=== PATIENT | male | born 1985 | race Caucasian/White ===

== ENCOUNTER 2016-10-09 12:57 | Inpatient (IN) | payer MEDICAID ==
[2016-10-09] MEDS ORDERED: ONDANSETRON 4 MG/2 ML VIAL ONE (13:27)
--- NOTE | 2016-10-09 13:47 | EDPHY ---
H & P Stated Complaint: probable dka/n/v/d not checking glucoses/cocaine use Time Seen by Provider: 10/09/16 13:40 HPI/ROS: CHIEF COMPLAINT: N/V/D. HISTORY OF PRESENT ILLNESS: The patient is a 31-year-old male with a history of diabetes presenting with 2 days of nausea, vomiting, and diarrhea. Patient developed vomiting and diarrhea 2-3 days ago. Last episode of vomiting was 12 hours ago. Patient states he used cocaine 3 days ago. He has not been taking short acting insulin as he was not eating. Mother reports whenever he gets sick he develops DKA. He admits pain "all over" his body. No fever, chills, chest pain, cough, palpitations, urinary complaints, headache, lightheadedness. Others in the family have been sick with a stomach flu. Reports his glucose has been running 200s. REVIEW OF SYSTEMS: Aside from elements discussed in the HPI, a comprehensive 10-point review of systems was reviewed and is negative. PAST MEDICAL HISTORY: Diabetes, hypertension, brain surgery, pancreatitis. SOCIAL HISTORY: Illicit drug use. VITAL SIGNS: Reviewed by me GENERAL: Ill-appearing. Tachypneic. Reporting feeling very dehydrated and very thirsty. HEENT: Atraumatic. Eyes: No icterus, no injection. Mouth: dry mucous membranes. Mild ketone breath. No erythema or lesions. Neck: supple with no adenopathy. LUNGS: Tachypneic. Clear to auscultation bilaterally, no wheezes, rhonchi or rales. CARDIAC: Tachycardic. Regular rhythm, no rubs, murmurs or gallops. ABDOMEN: Soft, mild epigastric discomfort to palpation. Nondistended, bowel sounds normal. BACK: No CVA tenderness. EXTREMITIES: No trauma. No edema. Range of motion is normal throughout. NEURO: Alert and oriented, grossly nonfocal. SKIN: Warm and dry, no rash. PSYCHIATRIC: Normal mentation, no agitation. Portions of this note were transcribed by a senior medical transcriptionist. I personally performed a history, physical exam, medical decision making, and confirmed accuracy of information the transcribed note. Source: Patient Exam Limitations: No limitations - Personal History Current Tetanus/Diphtheria Vaccine: Yes Tetanus Vaccine Date: 2014 - Medical/Surgical History Hx Asthma: No Hx Chronic Respiratory Disease: No Hx Diabetes: Yes Hx Cardiac Disease: No Hx Renal Disease: No Hx Cirrhosis: No Hx Alcoholism: No Hx HIV/AIDS: No Hx Splenectomy or Spleen Trauma: No Other PMH: TYPE 1 DIABETES, cranial sx, HTN, STREET DRUGS - Social History Smoking Status: Current every day smoker Constitutional: Initial Vital Signs Temperature (C) 36.9 C 10/09/16 13:17 Heart Rate 128 H 10/09/16 13:17 Respiratory Rate 34 H 10/09/16 13:17 Blood Pressure 163/99 H 10/09/16 13:17 O2 Sat (%) 99 10/09/16 13:17 O2 Delivery Mode Room Air Allergies/Adverse Reactions: hydrocodone bitartrate [From Vicodin] Allergy (Verified 10/09/16 13:17) Penicillins Allergy (Verified 10/09/16 13:17) Home Medications: Medication Instructions Recorded Insulin Glargine [Lantus] 25 unit SQ BID 08/30/11 Amitriptyline HCl [Elavil] 25 mg PO HS PRN 10/20/15 busPIRone [Buspar (*)] 10 mg PO BID PRN 10/20/15 Atorvastatin Calcium [Lipitor 20 20 mg PO DAILY 01/28/16 mg (*)] Lisinopril [Zestril 10 mg (*)] 10 mg PO DAILY 01/28/16 Insulin Aspart [Novolog Flexpen] 2 - 10 unit SQ TID #1 ml 05/14/16 Calcium Carbonate [Tums 500MG (*)] 500 mg PO PRN PRN 07/02/16 Ranitidine HCl [Zantac] 150 mg PO DAILY PRN 07/02/16 Medical Decision Making ED Course/Re-evaluation: An IV was established and labs ordered. 2L IV saline administered for hydration. ISTAT glucose 624, Na 128, K 5.1, anion gap 29. CBC shows WBC elevated at 21. CO2 6. IV Insulin drip ordered. 31-year-old male presents in DKA. Patient has glucose of 631, bicarbonate of 6 , [place] [address]. Patient was placed on insulin drip after receiving 10 units. Course discussed with the hospitalist service. Patient will be admitted to the intensive care unit. Differential Diagnosis: Differential diagnoses for the patient's symptom complex was considered including but not limited to DKA, AKA, dehydration secondary to gastroenteritis , pancreatitis, medication noncompliance, illicit drug use. Critical Care Time: Critical care time spent by Dr. Sumit daily exclusively with this patient was 40 minutes, exclusive of PA time and exclusive of procedures. The organ system at risk was cardiovascular and metabolic and I gave IVF, and insulin to prevent worsening of the patients condition. - Data Points Laboratory Results: Laboratory Results 10/09/16 13:55 10/09/16 13:55 10/09/16 10/09/16 10/09/16 13:55 13:55 13:53 WBC 21.05 10^3/uL H 10^3/uL (3.80-9.50) RBC 5.12 10^6/uL 10^6/uL (4.40-6.38) Hgb 14.4 g/dL g/dL (13.7-17.5) POC Hgb 15.6 gm/dL gm/dL (14.5-17.3) Hct 43.2 % % (40.0-51.0) POC Hct 46 % % (42.8-50.6) MCV 84.4 fL fL (81.5-99.8) MCH 28.1 pg pg (27.9-34.1) MCHC 33.3 g/dL g/dL (32.4-36.7) RDW 13.3 % % (11.5-15.2) Plt Count 521 10^3/uL H 10^3/uL (150-400) MPV 10.9 fL fL (8.7-11.7) Neut % (Auto) Not Reported Lymph % (Auto) Not Reported [place] % (Auto) Not Reported Eos % (Auto) Not Reported Baso % (Auto) Not Reported Nucleat RBC Rel Count 0.0 % % (0.0-0.2) Absolute Neuts (auto) Not Reported Absolute Lymphs (auto) Not Reported Absolute Monos (auto) Not Reported Absolute Eos (auto) Not Reported Absolute Basos (auto) Not Reported Absolute Nucleated RBC 0.00 10^3/uL 10^3/uL (0-0.01) Immature Gran % Not Reported Seg Neutrophils % 75 % % Band Neutrophils % 3 % % Lymphocytes % 17 % % Monocytes % 2 % % Metamyelocytes % 2 % % Myelocytes % 1 % % Immature Gran # Not Reported Absolute Seg Neuts 15.79 10^/uL H 10^/uL (1.70-6.50) Absolute Band Neuts 0.63 10^3/uL 10^3/uL (0.00-0.70) Absolute Lymphocytes 3.58 10^3/uL H 10^3/uL (1.00-3.00) Absolute Monocytes 0.42 10^3/uL 10^3/uL (0.30-0.80) Absolute Metamyelocyte 0.42 10^3/mL H 10^3/mL (0.00-0.00) Absolute Myelocytes 0.21 10^3/mL H 10^3/mL (0.00-0.00) Platelet Estimate INCREASED H (ADEQ) Polychromasia 1+ H Smear Review By Pending POC Sodium 128 mEq/L L mEq/L (134-144) Sodium 130 mEq/L L mEq/L (134-144) POC Potassium 5.1 mEq/L H mEq/L (3.3-5.0) Potassium 5.8 mEq/L H mEq/L (3.5-5.2) POC Chloride 99 mEq/L mEq/L (96-108) Chloride 94 mEq/L L mEq/L (97-110) Carbon Dioxide 6 mEq/l L* mEq/l (22-31) Anion Gap 30 mEq/L H mEq/L (8-16) POC BUN 27 mg/dL H mg/dL (7-23) BUN 25 mg/dL H mg/dL (7-23) Creatinine 1.4 mg/dL H mg/dL (0.7-1.3) POC Creatinine 1.1 mg/dL mg/dL (0.8-1.5) Estimated GFR 60 Glucose 631 mg/dL H* mg/dL (70-100) POC Glucose 624 mg/dL H* mg/dL (70-100) Calcium 11.3 mg/dL H mg/dL (8.5-10.4) Phosphorus 7.0 mg/dL H mg/dL (2.5-4.5) Magnesium 2.3 mg/dL mg/dL (1.6-2.3) Total Bilirubin 1.4 mg/dL mg/dL (0.1-1.4) Conjugated Bilirubin 0.4 mg/dL mg/dL (0.0-0.5) Unconjugated Bilirubin 1.0 mg/dL mg/dL (0.0-1.1) AST 17 IU/L IU/L (17-59) ALT 50 IU/L IU/L (21-72) Alkaline Phosphatase 112 IU/L IU/L (38-126) Total Protein 6.7 g/dL g/dL (6.3-8.2) Albumin 4.3 g/dL g/dL (3.5-5.0) Lipase 54.0 IU/L IU/L (23-300) Beta-Hydroxybutyrate Pending Medications Given: Discontinued Medications Hydromorphone HCl (Dilaudid) 1 mg IVP EDNOW ONE Stop: 10/09/16 14:55 Last Admin: 10/09/16 14:55 Dose: 1 mg Sodium Chloride (Ns) 1,000 mls @ 0 mls/hr IV ONCE ONE PRN Reason: Wide Open Stop: 10/09/16 13:56 Last Admin: 10/09/16 14:29 Dose: 1,000 mls Sodium Chloride (Ns) 1,000 mls @ 0 mls/hr IV ONCE ONE PRN Reason: Wide Open Stop: 10/09/16 13:56 Last Admin: 10/09/16 14:52 Dose: 1,000 mls Insulin Human Regular (Humulin R) 10 unit IVP EDNOW ONE Stop: 10/09/16 14:13 Last Admin: 10/09/16 14:52 Dose: 10 units Ondansetron HCl (Zofran) 4 mg IVP EDNOW ONE Stop: 10/09/16 14:55 Last Admin: 10/09/16 14:55 Dose: 4 mg Point of Care Test Results: 10/09/16 13:53 POC Sodium 128 L POC Potassium 5.1 H POC Chloride 99 POC BUN 27 H POC Creatinine 1.1 POC Glucose 624 H* Departure - Departure Disposition: [facility] Inpatient Acute Clinical Impression: Dehydration DKA (diabetic ketoacidoses) Qualifiers: Diabetes mellitus type: type 1 Diabetes mellitus complication detail: without coma Qualified Code(s): E10.10 - Type 1 diabetes mellitus with ketoacidosis without coma Vomiting Qualifiers: Vomiting type: unspecified Vomiting Intractability: unspecified Nausea presence : with nausea Qualified Code(s): R11.2 - Nausea with vomiting, unspecified Condition: Serious Referrals: MARTHA FENTON [Other] - As per Instructions Report Scribed for: Margarita Arana Report Scribed by: Osbaldo Tripp Date of Report: 10/09/16 Time of Report: 13:46
[2016-10-09] MEDS ORDERED: NS 1,000 ML IV ONE ×2 (13:55)
[2016-10-09] MEDS ORDERED: HYDROmorphONE/DILAUDID 1 MG/ML SYR ONE (14:01)
[2016-10-09 14:07] LABS: ADD DIFF? YES; ADD MORPH? NO; ADD SCAN? NO; ATYPICAL LYMPHOCYTE FLAG 0 (0-99); FRAGMENT RBC FLAG 0 (0-99); HEMATOCRIT 43.2 % (40.0-51.0); HEMOGLOBIN 14.4 g/dL (13.7-17.5); LEFT SHIFT FLG 20 (0-99); LIPEMIA HEMOLYSIS FLAG 80 (0-99); MEAN CELL HEMOGLOBIN 28.1 pg (27.9-34.1); MEAN CELL HEMOGLOBIN CONCENTR. 33.3 g/dL (32.4-36.7); MEAN CELL VOLUME 84.4 fL (81.5-99.8); MEAN PLATELET VOLUME 10.9 fL (8.7-11.7); PLATELET CLUMPS FLAG 20 (0-99); PLATELET COUNT 521 10^3/uL (150-400); RED BLOOD CELL COUNT 5.12 10^6/uL (4.40-6.38); RED CELL DISTRIBUTION WIDTH 13.3 % (11.5-15.2)
[2016-10-09] MEDS ORDERED: INSULIN REGULAR HUMAN 100 UNIT/ML IVP ONE ×2 (14:12→17:00)
[2016-10-09] MEDS ORDERED: INSULIN REGULAR HUMAN 100 UNIT, COSIGN. REQUIRED 1 EA in NS 100 ML IV ONE (14:12)
[2016-10-09 14:26] LABS: ALANINE AMINOTRANSFERASE 50 IU/L (21-72); ALBUMIN 4.3 g/dL (3.5-5.0); ALKALINE PHOSPHATASE 112 IU/L (38-126); ANION GAP 30 mEq/L (8-16); ASPARTATE AMINOTRANSFERASE 17 IU/L (17-59); BILIRUBIN,TOTAL 1.4 mg/dL (0.1-1.4); BILIRUBIN-CONJUGATED 0.4 mg/dL (0.0-0.5); CALCIUM 11.3 mg/dL (8.5-10.4); CHLORIDE 94 mEq/L (97-110); CREATININE 1.4 mg/dL (0.7-1.3); GLOMERULAR FILTRATION RATE 60; MAGNESIUM 2.3 mg/dL (1.6-2.3); POTASSIUM 5.8 mEq/L (3.5-5.2); SODIUM 130 mEq/L (134-144); TOTAL PROTEIN 6.7 g/dL (6.3-8.2)
[2016-10-09 14:37] LABS: CARBON DIOXIDE 6 mEq/l (22-31); GLUCOSE 631 mg/dL (70-100)
[2016-10-09 14:40] LABS: PLATELET ESTIMATE INCREASED (ADEQ); POLYCHROMASIA 1+
[2016-10-09] MEDS ORDERED: HYDROmorphONE/DILAUDID 1 MG/ML SYR IVP ONE ×3 (14:54→22:56)
[2016-10-09] MEDS ORDERED: ONDANSETRON 4 MG/2 ML VIAL IVP ONE (14:54)
[2016-10-09] MEDS ORDERED: ONDANSETRON DISINTEGRATING 4 MG TAB PO PRN (16:25)
[2016-10-09] MEDS ORDERED: ACETAMINOPHEN 325 MG TAB PO PRN (16:25)
[2016-10-09] MEDS ORDERED: busPIRone 10 MG TAB PO PRN (16:26)
[2016-10-09] MEDS ORDERED: AMITRIPTYLINE HCL 25 MG TAB PO PRN (16:26)
[2016-10-09] MEDS ORDERED: NON-FORMULARY NEW DRUG (Ranitidine Hcl [Zantac] 150 MG) PO PRN (16:26)
[2016-10-09] MEDS ORDERED: FAMOTIDINE 20 MG TAB PO PRN (16:34)
--- NOTE | 2016-10-09 16:43 | GHP ---
DATE OF ADMISSION: 10/09/2016 CHIEF COMPLAINT: DKA. HISTORY OF PRESENT ILLNESS: This is a 31-year-old male, who has had multiple admissions over the year for DKA. He states that multiple family members are sick with gastroenteritis. He says he has had several days of nausea, vomiting, and diarrhea. He has been unable to take his insulin. He denies any fevers or chills. Does admit to abdominal pain. He has been taking his Lantus. REVIEW OF SYSTEMS: Ten-point review of systems was obtained and unless stated is negative. PAST MEDICAL HISTORY: 1. DKA with type 1 diabetes. 2. History of polysubstance abuse. 3. History of testicle removal. MEDICATIONS: Lantus 30 units t.i.d., plus sliding scale, amitriptyline, BuSpar. SOCIAL HISTORY: Does smoke marijuana, tobacco. FAMILY HISTORY: Maternal grandfather with heart disease. PHYSICAL EXAM: VITAL SIGNS: Afebrile, heart rate 118, blood pressure 130/86, oxygen saturation 100 % on room air. GENERAL: Patient is well developed, in no apparent distress. HEENT: Nonicteric sc lerae. 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 Dry mucous membranes. NECK: Supple. No thyromegaly. LUNGS effort. Clear to auscultation bila terally. CARDIOVASCULAR: Regular rate, tachycardic. No murmurs or gallops. ABDOMEN: Soft, diffu se mild tenderness. No rebound or guarding. EXTREMITIES: No clubbing, cyanosis, or edema. SKIN: Without rash and intact. NEURO: Intact. NEUROLOGIC: Alert and oriented x3, moving all 4 extremi ties equally. PSYCH: Normal mood and affect. LABS: White blood cell count is elevated at 21, hemoglobin 14, platelets of 521. Sodium of 130, po tassium 5.8, CO2 of 6, BUN of 30, creatinine 1.4, glucose 631. Beta hydroxybutyrate is positive. ASSESSMENT: This is a 31-year-old male, presenting with diabetic ketoacidosis. PLAN: 1. DKA. Patient will be placed on a protocol. 2. Diarrhea. Will check a stool GI profile. 3. Leukocytosis, probably related to DKA. Continue to monitor. 4. Multiple electrolyte abnormalities consistent with DKA. /[id number]/MODL
[2016-10-09] MEDS ORDERED: INSULIN REGULAR HUMAN 100 UNIT in NS 100 ML IV SCH (16:55)
[2016-10-09] MEDS ORDERED: D50W 25 GM/50 ML SYR IVP PRN (16:55)
[2016-10-09] MEDS ORDERED: NS 4,000 ML IV ONE (16:55)
[2016-10-09] MEDS ORDERED: INSULIN REGULAR HUMAN 100 UNIT/ML IVP PRN (16:55)
[2016-10-09 17:18] LABS: BASE EXCESS -21.6 mEq/L (-2.5-2.5); BICARBONATE 5 mEq/L (22-26); MEASURED OXYGEN SATURATION 97 % (92-95)
[2016-10-09 17:20] LABS: PO2 106 mmHg (65-75)
[2016-10-09 17:22] LABS: PCO2 11 mmHg (34-38)
[2016-10-09 17:23] LABS: O2 CONCENTRATIION ROOM AIR % (0-100); P/F RATIO 0 RATIO; TCO2 5 mEq/L (23-27)
[2016-10-09 21:48] LABS: ALANINE AMINOTRANSFERASE 38 IU/L (21-72); ALBUMIN 2.7 g/dL (3.5-5.0); ALKALINE PHOSPHATASE 60 IU/L (38-126); ANION GAP 8 mEq/L (8-16); ASPARTATE AMINOTRANSFERASE 11 IU/L (17-59); BILIRUBIN,TOTAL 0.9 mg/dL (0.1-1.4); CALCIUM 9.3 mg/dL (8.5-10.4); CARBON DIOXIDE 17 mEq/l (22-31); CHLORIDE 106 mEq/L (97-110); CHOLESTEROL 171 mg/dL (140-200); CHOLESTEROL/HDL RATIO 2.51 RATIO (1.00-4.97); CREATININE 0.9 mg/dL (0.7-1.3); GLOMERULAR FILTRATION RATE > 60; GLUCOSE 175 mg/dL (70-100); HIGH DENSITY LIPOPROTEIN 68 mg/dL (40-65); LDL/HDL RATIO 1.37 RATIO (1.00-3.64); LOW DENSITY LIPOPROTEIN 93 mg/dL (70-100); MAGNESIUM 1.8 mg/dL (1.6-2.3); NON-HIGH DENSITY LIPOPROTEIN 103 mg/dL (90-129); POTASSIUM 4.6 mEq/L (3.5-5.2); SODIUM 131 mEq/L (134-144); TRIGLYCERIDE 50 mg/dL (40-150); VERY LOW DENSITY LIPOPROTEINS 10 mg/dL (8-25)
[2016-10-09] MEDS ORDERED: D5W NS 1,000 ML IV SCH (22:00)
[2016-10-09 23:33] LABS: COLOR YELLOW; LEUKOCYTE ESTERASE,URINE NEGATIVE (NEGATIVE); NITRITE,URINE NEGATIVE (NEGATIVE)
[2016-10-10 01:47] LABS: ALANINE AMINOTRANSFERASE 37 IU/L (21-72); ALBUMIN 2.6 g/dL (3.5-5.0); ALKALINE PHOSPHATASE 59 IU/L (38-126); ANION GAP 4 mEq/L (8-16); ASPARTATE AMINOTRANSFERASE 13 IU/L (17-59); BILIRUBIN,TOTAL 0.8 mg/dL (0.1-1.4); CALCIUM 9.7 mg/dL (8.5-10.4); CARBON DIOXIDE 21 mEq/l (22-31); CHLORIDE 108 mEq/L (97-110); CREATININE 0.8 mg/dL (0.7-1.3); GLOMERULAR FILTRATION RATE > 60; GLUCOSE 71 mg/dL (70-100); MAGNESIUM 1.9 mg/dL (1.6-2.3); SODIUM 133 mEq/L (134-144)
[2016-10-10] MEDS: HYDROmorphONE/DILAUDID 1 MG/ML SYR IVP PRN ×5 (03:12→11:52)
[2016-10-10] MEDS: ONDANSETRON 4 MG/2 ML VIAL IVP PRN ×2 (03:12→07:16)
[2016-10-10 03:23] LABS: HEMOGLOBIN A1C 14.3 % (4.0-6.0)
[2016-10-10 05:17] LABS: % IMMATURE GRANULYOCYTES 0.8 % (0.0-1.1); ABSOLUTE IMMATURE GRANULOCYTES 0.18 10^3/uL (0.00-0.10); ADD DIFF? NO; ADD MORPH? NO; ADD SCAN? NO; ATYPICAL LYMPHOCYTE FLAG 0 (0-99); FRAGMENT RBC FLAG 0 (0-99); HEMATOCRIT 30.5 % (40.0-51.0); HEMOGLOBIN 10.5 g/dL (13.7-17.5); LEFT SHIFT FLG 0 (0-99); LIPEMIA HEMOLYSIS FLAG 90 (0-99); MEAN CELL HEMOGLOBIN 28.2 pg (27.9-34.1); MEAN CELL HEMOGLOBIN CONCENTR. 34.4 g/dL (32.4-36.7); MEAN CELL VOLUME 81.8 fL (81.5-99.8); MEAN PLATELET VOLUME 9.9 fL (8.7-11.7); PLATELET CLUMPS FLAG 0 (0-99); PLATELET COUNT 299 10^3/uL (150-400); RED BLOOD CELL COUNT 3.73 10^6/uL (4.40-6.38); RED CELL DISTRIBUTION WIDTH 13.5 % (11.5-15.2)
[2016-10-10 05:31] LABS: ALANINE AMINOTRANSFERASE 38 IU/L (21-72); ALBUMIN 2.6 g/dL (3.5-5.0); ALKALINE PHOSPHATASE 54 IU/L (38-126); ANION GAP 4 mEq/L (8-16); ASPARTATE AMINOTRANSFERASE 16 IU/L (17-59); BILIRUBIN,TOTAL 0.8 mg/dL (0.1-1.4); CALCIUM 9.2 mg/dL (8.5-10.4); CARBON DIOXIDE 22 mEq/l (22-31); CHLORIDE 109 mEq/L (97-110); CREATININE 0.7 mg/dL (0.7-1.3); GLOMERULAR FILTRATION RATE > 60; GLUCOSE 56 mg/dL (70-100); POTASSIUM 3.8 mEq/L (3.5-5.2); SODIUM 135 mEq/L (134-144); TOTAL PROTEIN 5.1 g/dL (6.3-8.2)
[2016-10-10] MEDS: INSULIN LISPRO 100 UNIT/ML SC SCH ×2 (07:40→11:52)
[2016-10-10] MEDS ORDERED: INSULIN GLARGINE 100 UNITS/ML SYRINGE SC SCH (09:00)
[2016-10-10] MEDS ORDERED: PROMETHAZINE HCL 25 MG/ML INJ IVP PRN (10:08)
[2016-10-10] MEDS ORDERED: PROMETHAZINE HCL 25 MG TAB PO PRN (10:29)
[2016-10-10 11:57] VITALS: PULSE 97; TEMP 98; O2SAT 99
[2016-10-10] MEDS ORDERED: SUMAtriptan 6 MG/0.5 ML VIAL SC ONE (12:26)
[2016-10-10 14:45] VITALS: BP 162/102; RESP 14
--- NOTE | 2016-10-10 19:52 | GDS ---
DISCHARGE DIAGNOSES: 1. Diabetic ketoacidosis. 2. Viral gastroenteritis. 3. Migraine headache. 4. History of polysubstance abuse. HISTORY: This is a 31-year-old male, who was sick with gastroenteritis for the 2 days prior to admi ssion. He presented in DKA. HOSPITAL COURSE: Patient was placed on the protocol. His gap closed the following day, and his aci dosis resolved. He did have a migraine with continued vomiting. We did give him Imitrex and he imp roved significantly. He will be discharged home with a prescription for Imitrex as needed. He will resume his previous insulin doses. /[id number]/MODL
== END 2016-10-10 15:37 | disposition home or self-care (01) | DRG 639 ==
LOC: F2N 15:54 → OBSVTOIN 16:25
PROVIDERS: ADMIT Internal Medicine; ATTEND Internal Medicine
PROC: 02HV33Z Insertion of Infusion Device into Superior Vena Cava, Percutaneous Approach (ICD-10-PCS; principal; 2016-10-09)
DX: E10.10 Type 1 diabetes mellitus with ketoacidosis without coma (principal); Z91.14 Patient's other noncompliance with medication regimen; A08.4 Viral intestinal infection, unspecified; G43.909 Migraine, unspecified, not intractable, without status migrainosus; E86.0 Dehydration; F14.10 Cocaine abuse, uncomplicated; F12.10 Cannabis abuse, uncomplicated; F17.210 Nicotine dependence, cigarettes, uncomplicated; I10 Essential (primary) hypertension; Z79.4 Long term (current) use of insulin; Z90.79 Acquired absence of other genital organ(s); Z88.0 Allergy status to penicillin
CPT/HCPCS: 82947-QW; 96365; C1751; J1170; J1815; J2405; J3030

== ENCOUNTER 2017-01-30 15:18 | Emergency (ER) | payer MEDICAID ==
[2017-01-30] MEDS ORDERED: NS 1,000 ML IV ONE (15:30)
[2017-01-30] MEDS ORDERED: LISINOPRIL 20 MG TAB PO ONE (15:47)
--- NOTE | 2017-01-30 15:48 | CPEKG ---
Heart Rate: 80 RR Interval: 750 P-R Interval: 160 QRSD Interval: 98 QT Interval: 396 QTC Interval: 457 P [place]: 85 QRS [place]: 77 T Wave [place]: 84 EKG Severity - ABNORMAL ECG - EKG Impression: SINUS RHYTHM EKG Impression: PROBABLE LEFT VENTRICULAR HYPERTROPHY Electronically Signed By: Paz Marsh 30-Jan-2017 20:52:04
--- NOTE | 2017-01-30 15:54 | EDPHY ---
H & P Time Seen by Provider: 01/30/17 15:29 HPI/ROS: CHIEF COMPLAINT: Ear infection HISTORY OF PRESENT ILLNESS: This patient is a 32 year old male with poorly controlled diabetes and hypertension presenting today with vomiting and ear pain. Yesterday, he reports he was admitted to [facility] for DKA and was placed on an insulin drip. He states he became upset this morning and left the hospital against medical advice. He states he has taken insulin 10 units regular subcutaneously today, but has been unable to eat. Onset of vomiting today with associated abdominal pain. The patient states he initially went to [facility] Emergency department for left ear pain. He states these have been present for a few days. REVIEW OF SYSTEMS: Constitutional: No fever, no chills Eyes: No visual changes ENT: Left ear pain. No sore throat Respiratory: No cough, no shortness of breath Cardiac: No chest pain Gastrointestinal: Nausea, vomiting, no abdominal pain Genitourinary: No hematuria, no dysuria Musculoskeletal: No leg pain or swelling Skin: No rash Neurological: No headache, no numbness, no weakness Psychiatric: depression Past Medical/Surgical History: DKA Type I diabetes Polysubstance abuse Testicle removal Past medical records reviewed including admission 10/09/16 for DKA. Social History: Tobacco use Smoking Status: Current every day smoker Physical Exam: General Appearance: Alert, no distress Eyes: Pupils equal and round, no conjunctival pallor or injection ENT, Mouth: Erythema to superior aspect of pinna, no fluctuance. Mucous membranes moist Neck: Normal inspection Respiratory: Lungs are clear to auscultation Cardiovascular: Regular rate and rhythm Gastrointestinal: Mild epigastric tenderness Neurological: A&O, nonfocal, normal gait Skin: Warm and dry, no rash Extremities: Nontender, no pedal edema Psychiatric: Angry affect Constitutional: Initial Vital Signs Temperature (C) 36.6 C 01/30/17 15:21 Heart Rate 92 01/30/17 15:21 Respiratory Rate 18 01/30/17 15:21 Blood Pressure 182/126 H 01/30/17 15:21 O2 Sat (%) 99 01/30/17 15:21 O2 Delivery Mode Room Air Allergies/Adverse Reactions: hydrocodone bitartrate [From Vicodin] Allergy (Verified 10/09/16 13:17) Penicillins Allergy (Verified 10/09/16 13:17) Home Medications: Medication Instructions Recorded Insulin Glargine [Lantus] 30 unit SQ TID 08/30/11 Amitriptyline HCl [Elavil] 25 mg PO HS PRN 10/20/15 busPIRone [Buspar (*)] 10 mg PO BID PRN 10/20/15 Insulin Aspart [Novolog Flexpen] 2 - 10 unit SQ TID #1 ml 05/14/16 Ranitidine HCl [Zantac] 150 mg PO DAILY PRN 07/02/16 SUMAtriptan [Imitrex 25 MG (*)] 50 mg PO Q4 PRN #20 tab 10/10/16 Lisinopril 10 mg PO DAILY #30 tablet 01/30/17 Ondansetron Odt [Zofran Odt 4 mg 4 mg PO Q4 PRN #6 tab 01/30/17 (*)] Sulfamethox/Tmp 800/160 mg 1 tab PO BID #14 tab 01/30/17 [Bactrim Ds] Medical Decision Making - Diagnostics EKG Interpretation: EKG interpreted by me reveals normal sinus rhythm, rate 80, no ST/T changes. Probably left ventricular hypertrophy. Interpretation: normal EKG ED Course/Re-evaluation: This patient is a 32 year old male with multiple past visits for DKA and other diabetes related complaints presenting today with nausea and vomiting. The patient is noncompliant with his medications. Review of past medical records show the patient should be taking Lisinopril 10mg daily, Lantus 25 units subcutaneously bid, and regular insulin as needed. The patient is hypertensive. Plan for labs including CBC, BMP, I-Stat. Plan to administer 10mg po Lisinopril and 4mg IV Zofran for symptom management. The patient states he is feeling quite anxious. Plan to administer 1mg IV Ativan for symptom relief. Labs unremarkable. The patient is not currently in DKA. 17:47 Reassessed patient. Discussed results of labs. Patient is not in DKA. Reassessed left ear. Patient requests antibiotics, declines draining the tiny cyst. No further vomiting. The patient is able to tolerate oral fluids well. Plan to discharge home in good condition with prescriptions for Insulin and Lisinopril for management of his diabetes and hypertension, as well as Bactrim to treat the cellulitis of his left pinna and Zofran to control his nausea. The patient is comfortable with this plan. Differential Diagnosis: The differential diagnosis for the patient's nausea and vomiting included but was not limited to gastroenteritis, gastritis, and medication side effect. - Data Points Laboratory Results: Laboratory Results 01/30/17 15:55 01/30/17 15:55 Medications Given: Discontinued Medications Acetaminophen (Tylenol) 1,000 mg PO EDNOW ONE Stop: 01/30/17 16:35 Last Admin: 01/30/17 16:34 Dose: 1,000 mg Sodium Chloride (Ns) 1,000 mls @ 0 mls/hr IV ONCE ONE; Wide Open PRN Reason: Protocol Stop: 01/30/17 15:31 Last Admin: 01/30/17 15:55 Dose: 1,000 mls Lisinopril (Zestril) 10 mg PO EDNOW ONE Stop: 01/30/17 15:48 Last Admin: 01/30/17 16:00 Dose: 10 mg Lorazepam (Ativan Injection) 1 mg IVP EDNOW ONE Stop: 01/30/17 16:59 Last Admin: 01/30/17 17:00 Dose: 1 mg Ondansetron HCl (Zofran) 4 mg IVP EDNOW ONE Stop: 01/30/17 16:06 Last Admin: 01/30/17 16:05 Dose: 4 mg Departure - Departure Disposition: Home, Routine, Self-Care Clinical Impression: Cellulitis Qualifiers: Site of cellulitis: head Qualified Code(s): L03.811 - Cellulitis of head [any part, except face] Vomiting Qualifiers: Vomiting Intractability: non-intractable Nausea presence: with nausea Diabetes Qualifiers: Diabetes mellitus type: type 1 Diabetes mellitus complication status: without complication Qualified Code(s): E10.9 - Type 1 diabetes mellitus without complications Condition: Good Instructions: Cellulitis (ED), Type 1 Diabetes in Adults (ED), Acute Nausea and Vomiting (ED) Additional Instructions: 1. Take your insulin as prescribed to manage your blood sugar levels. 2. Take your Lisinopril as prescribed to control your high blood pressure. 3. We have prescribed you Bactrim to treat the infection in your ear. Please take this medication as prescribed. It is important that you finish your entire course of antibiotics. 4. We have prescribed you Zofran. Please take this medication as prescribed as needed for nausea. 5. Follow up with your primary care physician for continued management of your medication regimen. Referrals: MD FROY [Other] - As per Instructions Prescriptions: Lisinopril 10 mg PO DAILY #30 tablet Ondansetron Odt [Zofran Odt 4 mg (*)] 4 mg PO Q4 PRN #6 tab PRN Reason: Nausea Sulfamethox/Tmp 800/160 mg [Bactrim Ds] 1 tab PO BID #14 tab Report Scribed for: Paz Marsh Report Scribed by: Yadira Garland Date of Report: 01/30/17 Time of Report: 15:36 Physician Review and Approval Statement: 01/30/17 15:36 Portions of this note were transcribed by a diagnostic medical sonographer. I personally performed a history, physical exam, medical decision making, and confirmed accuracy of information the transcribed note.
[2017-01-30 16:02] LABS: % IMMATURE GRANULYOCYTES 0.7 % (0.0-1.1); ABSOLUTE IMMATURE GRANULOCYTES 0.06 10^3/uL (0.00-0.10); ADD DIFF? NO; ADD MORPH? NO; ADD SCAN? NO; ATYPICAL LYMPHOCYTE FLAG 20 (0-99); FRAGMENT RBC FLAG 0 (0-99); HEMATOCRIT 33.9 % (40.0-51.0); HEMOGLOBIN 11.5 g/dL (13.7-17.5); LEFT SHIFT FLG 0 (0-99); LIPEMIA HEMOLYSIS FLAG 90 (0-99); MEAN CELL HEMOGLOBIN CONCENTR. 33.9 g/dL (32.4-36.7); MEAN CELL VOLUME 79.6 fL (81.5-99.8); MEAN PLATELET VOLUME 10.9 fL (8.7-11.7); PLATELET CLUMPS FLAG 10 (0-99); PLATELET COUNT 253 10^3/uL (150-400); RED BLOOD CELL COUNT 4.26 10^6/uL (4.40-6.38); RED CELL DISTRIBUTION WIDTH 13.9 % (11.5-15.2)
[2017-01-30] MEDS ORDERED: ONDANSETRON 4 MG/2 ML VIAL ONE (16:02)
[2017-01-30] MEDS ORDERED: ONDANSETRON 4 MG/2 ML VIAL IVP ONE (16:05)
[2017-01-30] MEDS ORDERED: ACETAMINOPHEN 500 MG TAB ONE (16:29)
[2017-01-30 16:32] LABS: ANION GAP 9 mEq/L (8-16); CALCIUM 9.4 mg/dL (8.5-10.4); CARBON DIOXIDE 20 mEq/l (22-31); CHLORIDE 101 mEq/L (97-110); CREATININE 0.6 mg/dL (0.7-1.3); GLOMERULAR FILTRATION RATE > 60; GLUCOSE 159 mg/dL (70-100); SODIUM 130 mEq/L (134-144)
[2017-01-30] MEDS ORDERED: ACETAMINOPHEN 500 MG TAB PO ONE (16:34)
[2017-01-30] MEDS ORDERED: LORazepam 2 MG/ML INJ ONE (16:52)
[2017-01-30] MEDS ORDERED: LORazepam 2 MG/ML INJ IVP ONE (16:58)
[2017-01-30 17:37] VITALS: RESP 20
[2017-01-30 18:07] VITALS: BP 160/100; PULSE 78; TEMP 97.7; O2SAT 97
== END 2017-01-30 18:07 | disposition home or self-care (01) ==
DX: R11.2 Nausea with vomiting, unspecified (principal); L03.811 Cellulitis of head [any part, except face]; E10.9 Type 1 diabetes mellitus without complications; F17.200 Nicotine dependence, unspecified, uncomplicated; I10 Essential (primary) hypertension; E86.9 Volume depletion, unspecified; Z79.4 Long term (current) use of insulin
CPT/HCPCS: 82947-QW; 96374; J2060; J2405

== ENCOUNTER 2017-06-14 17:51 | Inpatient (IN) | payer MEDICAID ==
[2017-06-14] MEDS ORDERED: NS 1,000 ML IV ONE ×2 (19:00→19:53)
[2017-06-14] MEDS ORDERED: fentaNYL 100 MCG/2 ML INJ IVP ONE (19:00)
[2017-06-14] MEDS ORDERED: ONDANSETRON 4 MG/2 ML VIAL IVP ONE (19:00)
[2017-06-14 19:07] LABS: % IMMATURE GRANULYOCYTES 0.6 % (0.0-1.1); ABSOLUTE IMMATURE GRANULOCYTES 0.04 10^3/uL (0.00-0.10); ADD DIFF? NO; ADD MORPH? NO; ADD SCAN? NO; ATYPICAL LYMPHOCYTE FLAG 20 (0-99); FRAGMENT RBC FLAG 0 (0-99); HEMATOCRIT 31.4 % (40.0-51.0); HEMOGLOBIN 10.4 g/dL (13.7-17.5); LEFT SHIFT FLG 0 (0-99); LIPEMIA HEMOLYSIS FLAG 80 (0-99); MEAN CELL HEMOGLOBIN 26.5 pg (27.9-34.1); MEAN CELL HEMOGLOBIN CONCENTR. 33.1 g/dL (32.4-36.7); MEAN CELL VOLUME 80.1 fL (81.5-99.8); PLATELET CLUMPS FLAG 0 (0-99); PLATELET COUNT 303 10^3/uL (150-400); RED BLOOD CELL COUNT 3.92 10^6/uL (4.40-6.38); RED CELL DISTRIBUTION WIDTH 14.6 % (11.5-15.2)
--- NOTE | 2017-06-14 19:15 | EDPHY ---
H & P Time Seen by Provider: 06/14/17 18:49 HPI/ROS: CHIEF COMPLAINT: Vomiting, abdominal pain, severe left foot pain, peripheral neuropathy HISTORY OF PRESENT ILLNESS: 32-year-old male with a history of insulin- dependent diabetes presents to the emergency department by private vehicle with multiple episodes of vomiting and abdominal pain. Patient states that he has been vomiting intermittently over last 1 week and then developed pain especially in his lower abdomen over last few days. He states 3 days ago he dropped a heavy bottle on his left foot. He has associated pain especially in his left foot with this. He is now noticed some redness. He states that he has numbness to both feet and lower legs. He denies chest pain or difficulty breathing. He feels nauseous. No diarrhea. He states his blood sugars had been running very high the last few days. He states "I can't get the below 400 ". He has been taking his insulin as instructed. REVIEW OF SYSTEMS: Constitutional: No fever, no chills. Eyes: No double or blurry vision. ENT: No sore throat. Respiratory: No cough, no shortness of breath. Cardiac: No chest pain. Gastrointestinal: Abdominal pain, vomiting. No diarrhea. Genitourinary: No dysuria. Musculoskeletal: No neck or back pain. Skin: Redness left foot. Chronic diffuse rash for "years " Neurological: No headache. 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 Heart rate 111, blood pressure 197/137 , temperature 36.9degrees Eyes: Pupils equal and round. Extraocular motions are all intact. ENT: Very dry mouth. Chelitis noted. Respiratory: No wheezing, rhonchi, or rales, lungs are clear to auscultation. Cardiovascular: Regular rate and rhythm. Tachycardic. Gastrointestinal: Abdomen is soft. He has tenderness with palpation especially the right lower quadrant over McBurney's point. There is no rebound , guarding or masses noted. No CVA tenderness bilaterally. Neurological: Alert and oriented x 3, cranial nerves II through XII grossly intact Skin: Abrasion noted to the dorsal aspect of the left foot overlying left great toe. There is surrounding redness and warmth. Tender to palpate. Normal sensation to light touch. Normal capillary refill. He has an abrasion the dorsal aspect of the 2nd toe as well there is also surrounding redness. There is no lymphangitis. Full range of motion of his toes. Musculoskeletal: Nontender to palpate along the cervical, thoracic or lumbar spine. Neck is supple. Extremities: Full range of motion and no peripheral edema. See skin above. Psychiatric: Patient is oriented X 3, there is no agitation. Constitutional: Initial Vital Signs Temperature (C) 36.9 C 06/14/17 17:54 Heart Rate 111 H 06/14/17 17:54 Respiratory Rate 18 06/14/17 17:54 Blood Pressure 197/137 H 06/14/17 17:54 O2 Sat (%) 98 06/14/17 17:54 O2 Delivery Mode Room Air Allergies/Adverse Reactions: hydrocodone bitartrate [From Vicodin] Allergy (Verified 06/14/17 17:53) Home Medications: Medication Instructions Recorded Insulin Glargine [Lantus] 20 unit SQ TID 08/30/11 busPIRone [Buspar (*)] 10 mg PO BID PRN 16 Ranitidine HCl [Zantac] 150 mg PO BID PRN 07/02/16 Acetaminophen [Tylenol ES 500 mg 500 mg PO Q6 PRN 06/14/17 (*)] Calcium Carbonate [Tums 500MG (*)] 1,000 mg PO TID PRN 06/14/17 Insulin Aspart [Novolog Flexpen] 2 - 8 unit SQ TID 06/14/17 Lisinopril [Zestril 40 mg (*)] 40 mg PO DAILY 06/14/17 Medical Decision Making - Diagnostics Imaging Results: Imaging Impressions Foot X-Ray 06/14/17 19:08 Impression: Negative. No acute fracture. Abdomen CT 06/14/17 20:10 Impression: 1. Appendix cannot be identified. No features suggestive of acute appendicitis. 2. Minimal diffuse small bowel edema, mesenteric and subcutaneous fat edema and trace free fluid may be related to patient's diabetic ketoacidosis. 3. Right nephrolithiasis. No hydronephrosis or ureteral calculi. 4. Mild hepatomegaly. Findings discussed with Emergency Department physician assistant spa manager, Rimma Shearer on 06/14/2017, 21:25. Imaging: Discussed imaging studies w/ scallop cutter Radiologist ED Course/Re-evaluation: 32-year-old male presents to the emergency department with multiple episodes of vomiting. He has had DKA multiple times. He is noncompliant with his medications. Initial blood sugar was 844. His initial sodium was 118. CO2 was 18 Patient was discussed with Dr. Lenin Munoz, secondary supervising physician, who recommended 8 units of regular insulin per hour as well as 10 mEq of potassium over 1 hour. Patient received 2 L of IV normal saline. The patient continued to have ongoing abdominal pain. Specifically had pain is right lower quadrant. I was concerned about possible acute appendicitis. CT scan of the abdomen and pelvis was ordered which revealed diffuse edema without evidence of perforation, abscess. He had trace amount of free fluid in his pelvis. Unable to visualize the appendix. I spoke with Dr. Fletcher Butts who came to evaluate the patient and does not feel that he has acute appendicitis or has a surgical abdomen. He felt that his abdominal pain is likely related to constipation. The patient will be admitted to Dr. Maranda Jackson to the ICU for DKA. I spoke with the [facility] physician and informed them that this patient is not stable for transfer. He will be admitted to the hospital at [facility] for DKA. Differential Diagnosis: Including but not limited to DKA, cellulitis, hyperglycemia, electrolyte abnormality, sepsis, dehydration - Data Points Laboratory Results: Laboratory Results 06/14/17 18:49 06/14/17 18:49 06/14/17 06/14/17 06/14/17 19:55 18:49 18:49 WBC RBC Hgb Hct MCV MCH MCHC RDW Plt Count MPV Neut % (Auto) Lymph % (Auto) [place] % (Auto) Eos % (Auto) Baso % (Auto) Nucleat RBC Rel Count Absolute Neuts (auto) Absolute Lymphs (auto) Absolute Monos (auto) Absolute Eos (auto) Absolute Basos (auto) Absolute Nucleated RBC Immature Gran % Immature Gran # Sodium 118 mEq/L L* mEq/L (134-144) Potassium 5.1 mEq/L mEq/L (3.5-5.2) Chloride 86 mEq/L L mEq/L (97-110) Carbon Dioxide 18 mEq/l L mEq/l (22-31) Anion Gap 14 mEq/L mEq/L (8-16) BUN 19 mg/dL mg/dL (7-23) Creatinine 0.7 mg/dL mg/dL (0.7-1.3) Estimated GFR > 60 Glucose 844 mg/dL H* mg/dL (70-100) Calcium 8.3 mg/dL L mg/dL (8.5-10.4) Phosphorus 4.3 mg/dL mg/dL (2.5-4.5) Magnesium 1.8 mg/dL mg/dL (1.6-2.3) Total Bilirubin 0.5 mg/dL mg/dL (0.1-1.4) Conjugated Bilirubin 0.1 mg/dL mg/dL (0.0-0.5) Unconjugated Bilirubin 0.4 mg/dL mg/dL (0.0-1.1) AST 28 IU/L IU/L (17-59) ALT 49 IU/L IU/L (21-72) Alkaline Phosphatase 172 IU/L H IU/L (38-126) Total Protein 4.9 g/dL L g/dL (6.3-8.2) Albumin 2.7 g/dL L g/dL (3.5-5.0) Lipase 130 IU/L IU/L (23-300) Beta-Hydroxybutyrate 5.24 mmol/L H mmol/L (0.02-0.27) Urine Color COLORLESS Urine Appearance CLEAR Urine pH 7.0 (5.0-7.5) Ur Specific [place] 1.023 (1.002-1.030) Urine Protein 2+ H (NEGATIVE) Urine Ketones 1+ H (NEGATIVE) Urine Blood NEGATIVE (NEGATIVE) Urine Nitrate NEGATIVE (NEGATIVE) Urine Bilirubin NEGATIVE (NEGATIVE) Urine Urobilinogen NEGATIVE EU EU (0.2-1.0) Ur Leukocyte Esterase NEGATIVE (NEGATIVE) Urine RBC 1-3 /hpf /hpf (0-3) Urine WBC NONE SEEN /hpf /hpf (0-3) Ur Epithelial Cells NONE SEEN /lpf /lpf (NONE-1+) Urine Glucose 3+ H (NEGATIVE) 06/14/17 18:49 WBC 7.12 10^3/uL 10^3/uL (3.80-9.50) RBC 3.92 10^6/uL L 10^6/uL (4.40-6.38) Hgb 10.4 g/dL L g/dL (13.7-17.5) Hct 31.4 % L % (40.0-51.0) MCV 80.1 fL L fL (81.5-99.8) MCH 26.5 pg L pg (27.9-34.1) MCHC 33.1 g/dL g/dL (32.4-36.7) RDW 14.6 % % (11.5-15.2) Plt Count 303 10^3/uL 10^3/uL (150-400) MPV 11.0 fL fL (8.7-11.7) Neut % (Auto) 73.5 % % (39.3-74.2) Lymph % (Auto) 18.1 % % (15.0-45.0) [place] % (Auto) 6.6 % % (4.5-13.0) Eos % (Auto) 0.4 % L % (0.6-7.6) Baso % (Auto) 0.8 % % (0.3-1.7) Nucleat RBC Rel Count 0.0 % % (0.0-0.2) Absolute Neuts (auto) 5.23 10^3/uL 10^3/uL (1.70-6.50) Absolute Lymphs (auto) 1.29 10^3/uL 10^3/uL (1.00-3.00) Absolute Monos (auto) 0.47 10^3/uL 10^3/uL (0.30-0.80) Absolute Eos (auto) 0.03 10^3/uL 10^3/uL (0.03-0.40) Absolute Basos (auto) 0.06 10^3/uL 10^3/uL (0.02-0.10) Absolute Nucleated RBC 0.00 10^3/uL 10^3/uL (0-0.01) Immature Gran % 0.6 % % (0.0-1.1) Immature Gran # 0.04 10^3/uL 10^3/uL (0.00-0.10) Sodium Potassium Chloride Carbon Dioxide Anion Gap BUN Creatinine Estimated GFR Glucose Calcium Phosphorus Magnesium Total Bilirubin Conjugated Bilirubin Unconjugated Bilirubin AST ALT Alkaline Phosphatase Total Protein Albumin Lipase Beta-Hydroxybutyrate Urine Color Urine Appearance Urine pH Ur Specific [place] Urine Protein Urine Ketones Urine Blood Urine Nitrate Urine Bilirubin Urine Urobilinogen Ur Leukocyte Esterase Urine RBC Urine WBC Ur Epithelial Cells Urine Glucose Medications Given: Insulin Human Regular 100 unit / Miscellaneous Medication 1 ea/ Sodium Chloride 101 mls @ 8 mls/hr IV EDNOW ONE PRN Reason: Protocol Stop: 06/15/17 08:31 Last Admin: 06/14/17 20:50 Dose: 101 mls Discontinued Medications Fentanyl (Sublimaze) 50 mcg IVP EDNOW ONE Stop: 06/14/17 19:01 Last Admin: 06/14/17 19:21 Dose: 50 mcg Hydromorphone HCl (Dilaudid) 0.5 mg IVP EDNOW ONE Stop: 06/14/17 20:26 Last Admin: 06/14/17 20:43 Dose: 0.5 mg Sodium Chloride (Ns) 1,000 mls @ 0 mls/hr IV ONCE ONE; Wide Open PRN Reason: Protocol Stop: 06/14/17 19:01 Last Admin: 06/14/17 19:20 Dose: 1,000 mls Sodium Chloride (Ns) 1,000 mls @ 0 mls/hr IV ONCE ONE; Wide Open PRN Reason: Protocol Stop: 06/14/17 19:54 Last Admin: 06/14/17 22:03 Dose: 1,000 mls Potassium Chloride (Potassium Cl 10 Meq (Premix)) 100 mls @ 100 mls/hr IV EDNOW ONE Stop: 06/14/17 20:53 Last Admin: 06/14/17 20:44 Dose: 100 mls Ondansetron HCl (Zofran) 4 mg IVP EDNOW ONE Stop: 06/14/17 19:01 Last Admin: 06/14/17 19:20 Dose: 4 mg Departure - Departure Disposition: [facility] Inpatient Acute Clinical Impression: Abdominal pain Qualifiers: Abdominal location: right lower quadrant Qualified Code(s): R10.31 - Right lower quadrant pain DKA, type 1 Qualifiers: Diabetes mellitus complication detail: without coma Qualified Code(s): E10.10 - Type 1 diabetes mellitus with ketoacidosis without coma Condition: Good
[2017-06-14 19:20] LABS: MAGNESIUM 1.8 mg/dL (1.6-2.3); POTASSIUM 5.1 mEq/L (3.5-5.2)
[2017-06-14 19:32] LABS: ANION GAP 14 mEq/L (8-16); CALCIUM 8.3 mg/dL (8.5-10.4); CARBON DIOXIDE 18 mEq/l (22-31); CHLORIDE 86 mEq/L (97-110); CREATININE 0.7 mg/dL (0.7-1.3); GLOMERULAR FILTRATION RATE > 60
[2017-06-14 19:43] LABS: SODIUM 118 mEq/L (134-144)
[2017-06-14 19:44] LABS: GLUCOSE 844 mg/dL (70-100)
[2017-06-14] MEDS ORDERED: POTASSIUM Cl (KCl) 100 ML IV ONE (19:54)
[2017-06-14] MEDS ORDERED: INSULIN REGULAR HUMAN 100 UNIT, COSIGN. REQUIRED 1 EA in NS 100 ML IV ONE (19:54)
[2017-06-14] MEDS ORDERED: IOPAMIDOL (ISOVUE-300) 100 ML BTL ONE (20:14)
[2017-06-14] MEDS ORDERED: HYDROmorphONE/DILAUDID 1 MG/ML INJ IVP ONE (20:25)
[2017-06-14] MEDS ORDERED: INSULIN REGULAR HUMAN 100 UNIT in NS 100 ML IV SCH (20:30)
[2017-06-14] MEDS ORDERED: D50W 25 GM/50 ML SYR IVP PRN (20:30)
[2017-06-14] MEDS ORDERED: D50W 25 GM/50 ML VIAL IVP PRN (20:30)
[2017-06-14] MEDS ORDERED: INSULIN REGULAR HUMAN 100 UNIT/ML IVP PRN (20:30)
[2017-06-14 20:44] LABS: COLOR COLORLESS; LEUKOCYTE ESTERASE,URINE NEGATIVE (NEGATIVE); NITRITE,URINE NEGATIVE (NEGATIVE)
[2017-06-14] MEDS ORDERED: GABAPENTIN 300 MG CAP PO ONE (20:49)
[2017-06-14 21:01] LABS: B-HYDROXYBUTYRATE 5.24 mmol/L (0.02-0.27)
[2017-06-14 21:09] LABS: WBC,URINE NONE SEEN /hpf (0-3)
[2017-06-14 21:13] LABS: ALBUMIN 2.7 g/dL (3.5-5.0); BILIRUBIN,TOTAL 0.5 mg/dL (0.1-1.4); BILIRUBIN-CONJUGATED 0.1 mg/dL (0.0-0.5); BILIRUBIN-UNCONJUGATED 0.4 mg/dL (0.0-1.1); TOTAL PROTEIN 4.9 g/dL (6.3-8.2)
[2017-06-14] MEDS ORDERED: FAMOTIDINE 20 MG TAB PO PRN (21:14)
[2017-06-14] MEDS ORDERED: busPIRone 10 MG TAB PO PRN (21:14)
[2017-06-14 21:44] LABS: ANION GAP 14 mEq/L (8-16); CARBON DIOXIDE 20 mEq/l (22-31); CHLORIDE 89 mEq/L (97-110); CREATININE 0.8 mg/dL (0.7-1.3); GLOMERULAR FILTRATION RATE > 60; SODIUM 123 mEq/L (134-144)
[2017-06-14 21:50] LABS: POTASSIUM 4.4 mEq/L (3.3-5.0)
--- NOTE | 2017-06-14 21:57 | GHP ---
[f rep st] HISTORY AND PHYSICAL DATE OF ADMISSION: 06/14/2017 CHIEF COMPLAINT: 1. Left foot pain. 2. DKA. HISTORY OF PRESENT ILLNESS: A 32-year-old male with type 1 diabetes, multiple admissions for DKA, hypertension, presenting with left foot pain. He dropped a 64 ounce full bottle of tea on his foot a few days ago and since then has had significant pain. The foot became red. He has also been having intermittent nausea and vomiting over the past week. He complains of bilateral lower quadrant cramping abdominal pain. No chest pain. No shortness of breath. No diarrhea. He has been eating too much per his report. He reports compliance with his insulin. He has had lower extremity edema for the last couple months. Has increased swelling on the left leg and has been painful over the last couple days. REVIEW OF SYSTEMS: I completed a 10-point review of systems, negative except as noted in HPI. PAST MEDICAL HISTORY: 1. Insulin-dependent diabetes, multiple admissions for DKA. 2. Hypertension. 3. Anxiety/depression. 4. Polysubstance abuse, cocaine. Last use a few days ago. He snorts it. 5. Tobacco abuse. 6. Bilateral foot neuropathy. 7. Migraines, has not had any recently. PAST SURGICAL HISTORY: 1. Testicle removal. 2. Cranial surgery as a child. SOCIAL HISTORY: He is currently staying with his mom. Smokes a couple cigarettes a day. Uses cocaine, last a few days ago. No alcohol. FAMILY HISTORY: Diabetes, hypertension. ALLERGIES: Hydrocodone. Penicillin is not a true allergy. They reported that because other families were allergic, but he has never had any reactions to antibiotics thus, this will be removed from his allergy list. HOME MEDICATIONS: 1. BuSpar 10 mg twice daily. 2. Imitrex 50 mg as needed. 3. Zantac. 4. Tums. 5. Lisinopril 10 mg daily. 6. Glargine 20 units daily with aspart sliding scale. PHYSICAL EXAMINATION: VITAL SIGNS: Temperature 36.9, blood pressure 197/137, heart rates 111, respirations 18, 98% on room air. GENERAL: Mildly uncomfortable, lying in bed. HEENT: PERRLA. Dry mucous membranes. CV: Tachy , regular. No murmurs, gallops, rubs. +2-3 pitting edema up to knees. LUNGS: Clear to auscultation bilaterally. ABDOMEN: Mild diffuse abdominal tenderness. Positive bowel sounds. No rebound or guarding. SKIN: Yeast appearing rash over lower abdomen and upper back. MUSCULOSKELETAL: Left great toe with a scabbed over lesion. Mild erythema over the 1st and 2nd toes. Left calf is more swollen than right. NEURO: Decreased sensation of bilateral feet. PSYCH: Alert and oriented x3. LABS: UA +3 glucose, +2 protein. Sodium 118, corrected 129 for hyperglycemia, potassium 5.1, chloride 86, carbon dioxide 18, BUN 19, creatinine 0.7, glucose 844, calcium 8.3, phos 4.3, mag 1.8. WBC 7, hemoglobin 10, hematocrit 31, platelets 305. EKG is pending. Foot x-ray negative for fracture. CT abdomen/pelvis pending. ASSESSMENT/PLAN: 1. Diabetic ketoacidosis: Start aggressive IV fluid resuscitation and diabetic ketoacidosis protocol. Patient will be monitored in the ICU for serial labs and insulin drip. Question compliance with his home insulin and diet. 2. Pseudohyponatremia: Sodium 118, but corrected to 129 for sugar. We will continue to monitor. 3. Anion gap metabolic acidosis: Secondary to diabetic ketoacidosis. Aggressive IV fluid resuscitation. Will repeat. 4. Nonpurulent left foot cellulitis: We will start Ancef three times daily. Check ultrasound to rule out deep venous thrombosis given left greater than right and pain on that calf. X-ray is negative for fracture. 5. Migraines: Imitrex as needed. 6. Polysubstance abuse: Last used cocaine a few days ago. He was counseled on cessation. 7. Tobacco abuse: Declined a patch. 8. Peripheral neuropathy: Secondary to diabetes. He has trialed gabapentin in the past but only did for a few weeks. He is willing to retry. 9. Candidiasis skin infection: Miconazole cream. 10. Abdominal pain: Secondary to diabetic ketoacidosis. We will add LFTs. CT abdomen and pelvis was checked in the ER. This scan is pending. 11. LE edema: low albumin. Consider echo outpatient 12. Accelerated HTN: Lisinopril DIET: N.p.o. for now. DEEP VENOUS THROMBOSIS PROPHYLAXIS: Lovenox. DISPOSITION: Patient warrants inpatient admission in the ICU given acute diabetic ketoacidosis warranting IV insulin drip and serial labs. Critical care time spent: 60 min bedside examining pt and d/w mother. Remaining time spent reviewing labs, imaging and prior notes. /[id number]/MODL EL
[2017-06-14 22:05] LABS: GLUCOSE 722 mg/dL (70-100)
--- NOTE | 2017-06-14 22:08 | CPEKG ---
Heart Rate: 104 RR Interval: 577 P-R Interval: 164 QRSD Interval: 98 QT Interval: 364 QTC Interval: 479 P [place]: 66 QRS [place]: 51 T Wave [place]: 51 EKG Severity - BORDERLINE ECG - EKG Impression: SINUS TACHYCARDIA EKG Impression: BORDERLINE PROLONGED QT INTERVAL Electronically Signed By: Lenin Munoz 14-Jun-2017 23:06:02
[2017-06-14] MEDS ORDERED: CEFAZOLIN 1 GM/DEXTROSE/50 ML BAG IV ONE (22:54)
[2017-06-14 23:06] LABS: ANION GAP 10 mEq/L (8-16); CALCIUM 7.8 mg/dL (8.5-10.4); CARBON DIOXIDE 21 mEq/l (22-31); CHLORIDE 93 mEq/L (97-110); CREATININE 0.8 mg/dL (0.7-1.3); GLOMERULAR FILTRATION RATE > 60; SODIUM 124 mEq/L (134-144)
[2017-06-14 23:07] LABS: POTASSIUM 4.2 mEq/L (3.3-5.0)
[2017-06-14 23:08] LABS: GLUCOSE 606 mg/dL (70-100)
--- NOTE | 2017-06-14 23:48 | GCON ---
[f rep st] CONSULTATION Corrected report DATE OF CONSULTATION: 06/14/2017 REQUESTED BY: ER. HISTORY OF PRESENT ILLNESS: The patient is a 32-year-old male who presents with diabetic ketoacidosis. He has been admitted for diabetic ketoacidosis on multiple occasions. The reason for his presentation tonight was left foot pain. He had dropped a 64 ounce container of tea on his foot several days ago. The foot was reddened. An ultrasound showed no evidence of DVT. X-rays showed no evidence of foot fracture. He presented with a white count of 7.2, a corrected sodium of 123, a glucose of 844, and a metabolic acidosis. An additional finding was that he has had nausea and vomiting over the last week. His stools have been quite hard, and he has complained of pain on and off over the last week, and today at about baseline. He had 1 episode of vomiting today. His pain is bilateral lower crampy abdominal discomfort. Note is made he does snort cocaine and recently he has been doing approximately 2 g a week, which is for him is a higher use level. His last usage was 5 days ago. PAST MEDICAL HISTORY: He started smoking cigarettes at age 10-11. He reports that he only smokes 2-3 cigarettes a day. He occasionally uses alcohol. PAST SURGICAL HISTORY: Surgeries include an orchiectomy and cranial surgery. He takes BuSpar 10 mg twice a day, Imitrex 50 mg as needed for migraines. He takes Xanax and Tums. He uses lisinopril for hypertension, and he takes Glargine 20 units daily and Aspart sliding scale as needed. PHYSICAL EXAMINATION: GENERAL: He is seen lying on his right side. ABDOMEN: Normoactive bowel sounds. He is not tender with cough. Psoas and obturator signs are negative. To palpation, left upper quadrant is a 2 on a scale of 1-10 , left mid abdomen is 3, left lower quadrant is 2, epigastrium is 2, periumbilical area is 3, suprapubic area is 2, right upper quadrant is 2, right mid abdomen is 3, right lower quadrant is 4. His CAT scan shows stool throughout his colon. There is a minimal but diffuse small bowel edema. There is right nephrolithiasis. I do not identify any signs of an acute appendicitis noted in radiology. As mentioned, he certainly has stool throughout his colon and a full stomach. ASSESSMENT: At this point, I feel that he does not have an acute abdomen. I feel his symptoms are probably related to obstipation due to dehydration from his diabetic ketoacidosis. I do not see any signs of an ischemic insult that might be attributable to his cocaine use. As he continues to recover, these observations may change. Please feel free to re-consult if needed. /[id number]/MODL Corrected wt, 06/15/17, donald GALLEGOS
[2017-06-14] MEDS ORDERED: diphenhydrAMINE 25 MG CAP PO ONE (23:51)
[2017-06-15] MEDS ORDERED: GABAPENTIN 300 MG CAP ONE (00:05)
[2017-06-15] MEDS ORDERED: NS BOLUS 1000 ML (Wide open) IV ONE (00:45)
[2017-06-15] MEDS ORDERED: NS 1,000 ML IV ONE ×2 (01:00→20:10)
[2017-06-15] MEDS ORDERED: NS W/ 20 KCl/L 1,000 ML IV ONE (01:00)
[2017-06-15 03:35] LABS: ANION GAP 4 mEq/L (8-16); CALCIUM 7.8 mg/dL (8.5-10.4); CARBON DIOXIDE 26 mEq/l (22-31); CHLORIDE 102 mEq/L (97-110); CREATININE 0.8 mg/dL (0.7-1.3); GLOMERULAR FILTRATION RATE > 60; GLUCOSE 223 mg/dL (70-100); POTASSIUM 3.7 mEq/L (3.5-5.2); SODIUM 132 mEq/L (134-144)
[2017-06-15] MEDS: MICONAZOLE NITRATE 15 GM CRTUBE TP SCH ×2 (03:45→08:05)
[2017-06-15] MEDS: NS 1,000 ML IV SCH ×2 (03:48→07:03)
[2017-06-15 06:54] LABS: HEMATOCRIT 25.3 % (40.0-51.0); HEMOGLOBIN 8.5 g/dL (13.7-17.5); MEAN CELL HEMOGLOBIN 26.6 pg (27.9-34.1); MEAN CELL HEMOGLOBIN CONCENTR. 33.6 g/dL (32.4-36.7); MEAN CELL VOLUME 79.3 fL (81.5-99.8); RED BLOOD CELL COUNT 3.19 10^6/uL (4.40-6.38); RED CELL DISTRIBUTION WIDTH 14.6 % (11.5-15.2)
[2017-06-15 07:04] LABS: ANION GAP 3 mEq/L (8-16); CALCIUM 8.1 mg/dL (8.5-10.4); CARBON DIOXIDE 25 mEq/l (22-31); CHLORIDE 104 mEq/L (97-110); CREATININE 0.7 mg/dL (0.7-1.3); GLOMERULAR FILTRATION RATE > 60; GLUCOSE 74 mg/dL (70-100); POTASSIUM 3.7 mEq/L (3.5-5.2); SODIUM 132 mEq/L (134-144)
[2017-06-15] MEDS: LISINOPRIL 40 MG TAB PO SCH (07:52)
[2017-06-15] MEDS: ENOXAPARIN 40 MG/0.4 ML SYR SC SCH (07:52)
[2017-06-15] MEDS: CALCIUM CARBONATE 500 MG CHEWABLE TAB PO PRN (07:52)
--- NOTE | 2017-06-15 09:27 | ASMTCASEMG ---
Living Arrangements What is your living Answers: With Spouse arrangement? Who do you live with? Type Of Residence What kind of residence do Answers: House you live in? Case Management Evaluation Psychosocial Needs: Answers: Active Substance Abuse Notes: Cocaine Discharge Plan Comments Coordination Status Comments Notes: Patient is a 32yo male who was admitted for diabetic ketoacidosis and left foot pain resulting from dropping a 64 oz container of tea on his foot. Patient's foot was not fractured or broken. Patient will most likely d/c independently returning home with his . CM is available if d/c needs arise. Date Signed: 06/15/2017 09:26 AM Electronically Signed By:Nayeli Henry LCSW
[2017-06-15] MEDS: ONDANSETRON DISINTEGRATING 4 MG TAB PO PRN ×2 (10:04→20:33)
[2017-06-15] MEDS: INSULIN GLARGINE 100 UNITS/ML SYRINGE SC SCH ×2 (10:05→15:46)
[2017-06-15] MEDS ORDERED: 1/2 NS 1,000 ML IV SCH (11:00)
[2017-06-15] MEDS: ONDANSETRON 4 MG/2 ML VIAL IVP PRN ×2 (11:53→15:51)
[2017-06-15] MEDS: INSULIN LISPRO 100 UNIT/ML SC SCH ×3 (11:53→21:56)
--- NOTE | 2017-06-15 12:03 | PDMN ---
Medical Necessity Medical necessity: Pt meets IP criteria per MD; est los >2 mn for eval/tx of acute DKA requiring admission to ICU for aggressive IVF resuscitation, insulin drip & serial labs, pseudohyponatremia, anion gap metabolic acidosis secondary to DKA; hx diabetes & htn; per H&P & order 06/14/17
--- NOTE | 2017-06-15 14:24 | HOSPPROG ---
Hospitalist Progress Note Assessment/Plan: # DKA - presumed 2/2 med non-compliance and active cellulitis - gap closed overnight on IVF and insulin oxygen saturations 98% on RA - restarting home glargine this am - SSI for additional coverage - switching IVF to dextrose containing - DM diet # Non-purulent Cellulitis - pt dropped heavy object on foot with development of sore and then cellulitis Left foot xray (personally reviewed and interpreted) no fracture - wound care - cefazolin IV # Hyponatremia - originally 118 (suspected pseudohyponatremia - corrected 129 for sugar) corrected with IVF to 132 this am - continue IVF # polysubstance abuse # peripheral neuropathy # migraine headaches # proph - lovenox # diet - diabetic # dispo- > 2MN as requires ongoing treatment for uncontrolled DM and cellulitis I have discussed the case with RN - we will transition to SC insulin today Subjective: headache Objective: Vital Signs Temp Pulse Resp BP Pulse Ox 36.8 C 95 12 155/101 H 98 06/15/17 12:00 06/15/17 12:00 06/15/17 12:00 06/15/17 12:00 06/15/17 12:00 Laboratory Results 06/15/17 06:30 06/15/17 06:30 06/14/17 06/15/17 06/16/17 05:59 05:59 05:59 Intake Total 7726 Output Total 4800 Balance 2926 - Physical Exam Constitutional: chronically ill appearing Eyes: anicteric sclera Ears, Nose, Mouth, Throat: moist mucous membranes Cardiovascular: regular rate and rhythym Respiratory: no respiratory distress, no rales or rhonchi Gastrointestinal: normoactive bowel sounds Genitourinary: no bladder fullness Skin: warm, other (sores on dorsum of great and second toes with surrounding erythema) Musculoskeletal: No asymmetric calves Neurologic: AAOx3 Psychiatric: depressed, flat affect Lymph, Heme, Immunologic: no cervical LAD ICD10 Worksheet Patient Problems: Problems Problem Status Onset Abdominal pain Acute DKA, type 1 Acute Cellulitis Acute DKA (diabetic ketoacidoses) Acute DKA (diabetic ketoacidoses) Acute Dehydration Acute Diabetes Acute Hyperglycemia due to type 1 diabetes mellitus Acute Influenza A Acute Pharyngitis Acute Vomiting Acute Vomiting Acute
--- NOTE | 2017-06-15 14:41 | WOCRNPDOC ---
WOCRN Advanced Assessment Note - Skin Integrity Problem, Advanced Assess Left First Toe Diabetic Ulcer Dressing Type: Open to Air Exudate Amount: None Sherrie Wound Tissue: Erythema, Swollen Sherrie Wound Swelling: Mild Wound Bed Constitution: Scab Wound Edges: Attached, Well Defined Site Odor: None Site Measurement - Head-to-Toe Length X Width X Depth (cm): 1.5cmx1.3cmxscab Skin Integrity Problem Comment: Patient with round, well defined wound on 1st toe. Sherrie wound tissue is red and dry. Wound bed itself is very dry with adhered scab. Will place orders to promote autolytic debridement of this wound and wound care will follow up early next week. Upon discharge, patient should follow up with podiatry [facility]. Left Second Toe Diabetic Ulcer Dressing Type: Open to Air Exudate Amount: None Sherrie Wound Tissue: Erythema, Swollen Sherrie Wound Swelling: Mild Wound Bed Color: Yellow Wound Bed Constitution: Scab, Dried Exudate Site Measurement - Head-to-Toe Length X Width X Depth (cm): 1.7cmx1.4cmxscab Skin Integrity Problem Comment: Patient with wound at the base of the toenail. Sherrie wound tissue is red and dry. Wound bed itself is very dry with adhered scab and dried exudate. Will place orders to promote autolytic debridement of this wound and wound care will follow up early next week.
[2017-06-15] MEDS: ACETAMINOPHEN 325 MG TAB PO PRN ×2 (15:19→20:34)
[2017-06-15 18:59] LABS: GLUCOSE 441 mg/dL (70-100)
[2017-06-16] MEDS: ONDANSETRON DISINTEGRATING 4 MG TAB PO PRN (00:54)
[2017-06-16] MEDS ORDERED: ALTEPLASE 2 MG VIAL IVP PRN (01:45)
[2017-06-16] MEDS ORDERED: CEPHALEXIN 250 MG CAP PO ONE (01:45)
--- NOTE | 2017-06-16 01:47 | HOSPPROG ---
Hospitalist Progress Note Assessment/Plan: XC: Notified by RN that IV access was lost despite [address] new IV overnight. Will order Keflex x1 to replace missed dose of Cefazolin and order PICC placement in the AM. Objective: Vital Signs Temp Pulse Resp BP Pulse Ox 37.1 C 84 18 151/95 H 92 06/16/17 00:00 06/16/17 00:00 06/16/17 00:00 06/16/17 00:00 06/16/17 00:00 Laboratory Results 06/15/17 06:30 06/15/17 18:00 06/14/17 06/15/17 06/16/17 05:59 05:59 05:59 Intake Total 7726 350 Output Total 4800 Balance 2926 350 ICD10 Worksheet Patient Problems: Problems Problem Status Onset Abdominal pain Acute DKA, type 1 Acute Cellulitis Acute DKA (diabetic ketoacidoses) Acute DKA (diabetic ketoacidoses) Acute Dehydration Acute Diabetes Acute Hyperglycemia due to type 1 diabetes mellitus Acute Influenza A Acute Pharyngitis Acute Vomiting Acute Vomiting Acute
[2017-06-16] MEDS: INSULIN GLARGINE 100 UNITS/ML SYRINGE SC SCH ×4 (03:04→20:50)
[2017-06-16] MEDS: MICONAZOLE NITRATE 15 GM CRTUBE TP SCH ×3 (03:13→20:51)
[2017-06-16] MEDS: INSULIN LISPRO 100 UNIT/ML SC SCH ×3 (08:00→18:19)
[2017-06-16] MEDS: ENOXAPARIN 40 MG/0.4 ML SYR SC SCH (08:53)
[2017-06-16] MEDS: LISINOPRIL 40 MG TAB PO SCH (08:53)
[2017-06-16] MEDS ORDERED: FLU VACC QS 2017-18 (3YR+)/PF 0.5 ML SYR (FLUARIX QUAD) IM ONE (11:46)
--- NOTE | 2017-06-16 16:35 | ASMTCMCOM ---
CM Note CM Note Notes: Met with patient regarding discharge poc. Patient states he is now living at home independently. We discussed the possibility of a HC RN to help manage his Diabetes and Insulin (Address/phone # confirmed). Patient states he is interested but would like to think about it further before agreeing. Patient also reports a history of drug use--resources provided. Case Management also attempted to complete CAGE screen, patient refused. CM will follow-up with patient this weekend to see if he would like home health care. Date Signed: 06/16/2017 04:35 PM Electronically Signed By:Betzaida Villavicencio RN
[2017-06-16] MEDS: traMADol 50 MG TAB PO PRN (17:06)
[2017-06-16] MEDS: CALCIUM CARBONATE 500 MG CHEWABLE TAB PO PRN (17:06)
[2017-06-16] MEDS: KETOROLAC 15 MG/1 ML SDV IVP SCH ×2 (18:20→23:50)
[2017-06-16] MEDS: AMPICILLIN/SULBACTAM 3 GM in NS 100 ML IV SCH ×2 (18:20→23:45)
--- NOTE | 2017-06-16 18:26 | PDHOSCONS ---
Hospitalist Consult Hospitalist Consult: # Non-purulent Cellulitis - pt dropped heavy object on foot with development of sore and then cellulitis Left foot xray (personally reviewed and interpreted) no fracture - wound care - cefazolin IV # Hyponatremia - originally 118 (suspected pseudohyponatremia - corrected 129 for sugar) corrected with IVF to 132 this am - continue IVF # polysubstance abuse # peripheral neuropathy # migraine headaches # proph - lovenox # diet - diabetic # dispo- > 2MN as requi DIAGNOSES: -status post DKA, now resolved -poorly controlled diabetes mellitus, in a patient with type 1 diabetes and very poor self participation in management at home -diabetic foot infection with 1st and 2nd toes remaining cellulitic and with dorsal wounds on those toes both covered with dry crust, no sign of abscess -this is slowly improving, however he is receiving Ancef which would be too great for strep or most staff, but would not cover other organisms common in diabetic foot infections -polysubstance abuse including cocaine -difficulty with multiple stressors at home which she has not managing very well and not compensating for well -hypertension remains uncontrolled systolic and diastolic -peripheral neuropathy from diabetes PLANS: -will go back to his usual home insulin dosing regimen and see how his sugars do , make adjustments as needed -will change his antibiotic to Unasyn to cover diabetic foot infections more closely; I do not have suspicion for Pseudomonas specifically; these infections and will need to be watched very closely for potential development of abscess and/or osteomyelitis if he does not resolve them -will add further antihypertensive treatment and he will need to follow his blood pressures very closely at home -he should be referred in the outpatient setting to counseling therapy for management of his stresses, this will have to be through [employer] which is his insurance -had long discussion with him about cocaine and other substance abuse. He agrees that he really needs to get rid of this. Once again I think [facility] should be able to refer him to counseling and rehabilitation for this and he is agreeable to working with his primary care doctor for this SUBJECTIVE: Comes of ongoing pain in his foot Complains of feeling itchy and swollen OBJECTIVE Vitals reviewed: Remains fairly hypertensive but otherwise good vitals without fever Exam: alert oriented skin warm dry color ok resps not labored lungs clear BSs heart regular abd soft nondistended nontender, bowel sounds present limbs his foot still has cellulitis present over the distal dorsum of the foot as well as the 1st 3 toes to which have open wounds covered with dry crust. There is no evidence of drainage, or fluctuance iv site ok Greater than 35 minutes of bedside time spent with patient today more than half of which was in discussion of his medical diagnoses, prognoses, therapies, and necessary follow-up along with care decision making
[2017-06-16] MEDS: ONDANSETRON 4 MG/2 ML VIAL IVP PRN (23:49)
[2017-06-17] MEDS ORDERED: hydrALAZINE 25 MG TAB PO PRN (00:19)
[2017-06-17] MEDS: CALCIUM CARBONATE 500 MG CHEWABLE TAB PO PRN ×3 (00:36→13:07)
[2017-06-17] MEDS: KETOROLAC 15 MG/1 ML SDV IVP SCH ×2 (06:27→10:20)
[2017-06-17] MEDS: AMPICILLIN/SULBACTAM 3 GM in NS 100 ML IV SCH ×2 (06:28→12:56)
[2017-06-17] MEDS: ONDANSETRON 4 MG/2 ML VIAL IVP PRN (10:26)
[2017-06-17] MEDS: ACETAMINOPHEN 325 MG TAB PO PRN (10:28)
[2017-06-17] MEDS: LISINOPRIL 40 MG TAB PO SCH (10:28)
[2017-06-17] MEDS: INSULIN LISPRO 100 UNIT/ML SC SCH ×2 (10:42→11:44)
[2017-06-17] MEDS: INSULIN GLARGINE 100 UNITS/ML SYRINGE SC SCH (10:45)
[2017-06-17 11:36] VITALS: BP 182/110; PULSE 90; RESP 14; TEMP 97.9; O2SAT 95
--- NOTE | 2017-06-17 11:58 | HOSPPROG ---
Hospitalist Progress Note Assessment/Plan: DIAGNOSES: -status post DKA, now resolved -poorly controlled diabetes mellitus, in a patient with type 1 diabetes and very poor self participation in management at home -so far his sugars have been good on his home regimen past day, demonstrating he actually can manage sugars well if he is monitoring and if he takes insulin; noon sugar today 180 but he did not get am insulin as nurse was concerned about his carb counting -diabetic foot infection with 1st and 2nd toes remaining cellulitic and with dorsal wounds on those toes both covered with dry crust, no sign of abscess -appears this may be improving better on unasyn, but only 3 doses in so far -polysubstance abuse including cocaine and marijuana products -difficulty with multiple stressors at home which she has not managing very well and not compensating for well -hypertension remains uncontrolled systolic and diastolic; started higher dose of norvasc am 06/17 -peripheral neuropathy from diabetes PLANS: -will go back to his usual home insulin dosing regimen and see how his sugars do , make adjustments as needed -will change his antibiotic to Unasyn to cover diabetic foot infections more closely; I do not have suspicion for Pseudomonas specifically; these infections and will need to be watched very closely for potential development of abscess and/or osteomyelitis if he does not resolve them -follow on higher dose norvasc here, and he will need to follow his blood pressures very closely at home -he should be referred in the outpatient setting to counseling therapy for management of his stresses, this will have to be through [employer] which is his insurance -had long discussion with him about cocaine and other substance abuse. He agrees that he really needs to get rid of this. Once again I think [facility] should be able to refer him to counseling and rehabilitation for this and he is agreeable to working with his primary care doctor for this SUBJECTIVE: Comes of ongoing pain in his foot Complains of feeling itchy and swollen OBJECTIVE Vitals reviewed: Remains fairly hypertensive but otherwise good vitals without fever Exam: alert oriented skin warm dry color ok resps not labored lungs clear BSs heart regular abd soft nondistended nontender, bowel sounds present limbs his foot still has cellulitis present over the distal dorsum of the foot as well as the 1st 3 toes to which have open wounds covered with dry crust. There is no evidence of drainage, or fluctuance iv site ok Objective: Vital Signs Temp Pulse Resp BP Pulse Ox 36.6 C 90 14 182/110 H 95 06/17/17 11:36 06/17/17 11:36 06/17/17 11:36 06/17/17 11:36 06/17/17 11:36 Laboratory Results 06/15/17 06:30 06/15/17 18:00 06/16/17 06/17/17 06/18/17 06:59 06:59 06:59 Intake Total 350 2700 Balance 350 2700 ICD10 Worksheet Patient Problems: Problems Problem Status Onset Abdominal pain Acute DKA, type 1 Acute Cellulitis Acute DKA (diabetic ketoacidoses) Acute DKA (diabetic ketoacidoses) Acute Dehydration Acute Diabetes Acute Hyperglycemia due to type 1 diabetes mellitus Acute Influenza A Acute Pharyngitis Acute Vomiting Acute Vomiting Acute
[2017-06-17] MEDS: traMADol 50 MG TAB PO PRN (13:06)
[2017-06-17] MEDS: MICONAZOLE NITRATE 15 GM CRTUBE TP SCH (13:08)
--- NOTE | 2017-06-17 15:09 | ASMTCMCOM ---
CM Note CM Note Notes: CM met w/ pt for dispo planning. Pt reports that he is not interested in having HC at time of d/c. CM reminded pt that if he changes his mind he could inform CM or have his PCP order HC. CM available for changes. Date Signed: 06/17/2017 03:08 PM Electronically Signed By:ИРИНА Meeks
--- NOTE | 2017-06-17 18:43 | PDDCSUM ---
Discharge Summary Discharge Summary: DISCHARGE DIAGNOSES: -acute DKA -diabetic foot infection -poor self management of diabetes at home -polysubstance abuse with cocaine and marijuana COMPLICATIONS: none HOSPITAL COURSE: This patient who has been here several times with DKA came in with acute severe DKA at this time requiring ICU admission. He had been using street drugs and not monitoring or treating his diabetes in any consistant fashion. He also had dropped a heavy object on his left foot and at the time of presentation had a diabetic foot infection with open wounds and cellulitis, no sign of abscess or osteo. He was treated by standard protocol therapy for DKA and resolved easily. He was placed back on sub Q insulin and did reasonably well with blood sugars thereafter. He received antibiotics for his foot infection and that improved nicely in the hospital. There is still some cellulitis of the toes and he will need ongoing antibiotic and wound care after discharge. As far as drug use he did receive counseling regarding the hazards of cocaine and pot, as well as their interference with diabetes management. He mentioned having a lot of stress at home and work. It was recommended he have his [facility] primary MD refer him for counseling and rehabilitation. He verbalized agreement with these recommendations, though his behaviors in the hospital were concerning regarding his likelihood of meaningful engagement with such care. MEDICATION CHANGES: addition of augmentin 875 bid for one more week FOLLOW UP PLANS: it is recommended he follow up at [facility] with his PCP MD in 2 days Monday, and seek referral for wound care and psychologic counseling, drug rehabilitation
== END 2017-06-17 16:55 | disposition home or self-care (01) | DRG 638 ==
LOC: F2N 23:13 → F3N 06-15 17:49
PROVIDERS: ADMIT Internal Medicine; ATTEND Internal Medicine
PROC: 02HV33Z Insertion of Infusion Device into Superior Vena Cava, Percutaneous Approach (ICD-10-PCS; principal; 2017-06-16)
DX: E10.10 Type 1 diabetes mellitus with ketoacidosis without coma (principal); L03.116 Cellulitis of left lower limb; E10.628 Type 1 diabetes mellitus with other skin complications; F14.10 Cocaine abuse, uncomplicated; F12.10 Cannabis abuse, uncomplicated; I10 Essential (primary) hypertension; G43.909 Migraine, unspecified, not intractable, without status migrainosus; B37.9 Candidiasis, unspecified; E10.41 Type 1 diabetes mellitus with diabetic mononeuropathy; Z79.4 Long term (current) use of insulin; Z72.0 Tobacco use; Z23 Encounter for immunization
CPT/HCPCS: 82947-QW; 96374; C1751; G0008; J0295; J0690; J1170; J1650; J1815; J1885; J2405; J3010; Q9967

== ENCOUNTER 2017-06-18 11:12 | Inpatient (IN) | payer MEDICAID ==
[2017-06-18 13:43] LABS: % IMMATURE GRANULYOCYTES 0.5 % (0.0-1.1); ABSOLUTE IMMATURE GRANULOCYTES 0.04 10^3/uL (0.00-0.10); ADD DIFF? NO; ADD MORPH? NO; ADD SCAN? NO; ATYPICAL LYMPHOCYTE FLAG 0 (0-99); FRAGMENT RBC FLAG 0 (0-99); HEMATOCRIT 29.1 % (40.0-51.0); HEMOGLOBIN 9.6 g/dL (13.7-17.5); LEFT SHIFT FLG 0 (0-99); LIPEMIA HEMOLYSIS FLAG 80 (0-99); MEAN CELL HEMOGLOBIN 26.3 pg (27.9-34.1); MEAN CELL VOLUME 79.7 fL (81.5-99.8); MEAN PLATELET VOLUME 10.3 fL (8.7-11.7); PLATELET CLUMPS FLAG 20 (0-99); PLATELET COUNT 328 10^3/uL (150-400); RED BLOOD CELL COUNT 3.65 10^6/uL (4.40-6.38); RED CELL DISTRIBUTION WIDTH 14.8 % (11.5-15.2)
--- NOTE | 2017-06-18 13:57 | EDPHY ---
H & P Smoking Status: Current every day smoker Time Seen by Provider: 06/18/17 12:28 HPI/ROS: CHIEF COMPLAINT: Anasarca HISTORY OF PRESENT ILLNESS: 32-year-old male presents to the emergency department by private vehicle with anasarca. He was recently admitted to [facility] with diabetic ketoacidosis. He was discharged yesterday and he states that he noted some swelling especially in his upper lower extremities at that time although the patient wanted to be discharged home because he was feeling "anxious ". Patient states that today his swelling has become much worse. He feels diffuse headache and feels "like my head is going to explode ". He states that today he was getting out of the bath and then he fell and hit his head. He states that he did not feel like he could move his legs normally because they feel like "sandbags ". Denies abdominal pain or vomiting. Denies injury to his upper lower extremities. He has swelling in his groin as well which was also present yesterday. No urinary symptoms. He feels "starving ". REVIEW OF SYSTEMS: Constitutional: No fever, no chills. Eyes: No double or blurry vision. ENT: No sore throat. Respiratory: No cough, no shortness of breath. Cardiac: No chest pain. Gastrointestinal: No abdominal pain, vomiting or diarrhea. Genitourinary: No dysuria. Musculoskeletal: No neck or back pain. Skin: No rashes. Neurological: headache. (Rimma Shearer) Past Medical/Surgical History: Insulin-dependent diabetic poor compliance, substance abuse, admitted for DKA on 06/14/2017 (Rimma Shearer) Social History: Single and lives with his mother (Rimma Shearer) Physical Exam: General Appearance: Alert, no distress. Hypertensive 181/126, heart rate 102. Face is diffusely swollen. There is no erythema. No rash. Eyes: Pupils equal and round. Extraocular motions are all intact. ENT: Mouth: Mucous membranes moist. Respiratory: No wheezing, rhonchi, or rales, lungs are clear to auscultation. Cardiovascular: Regular rate and rhythm. Gastrointestinal: Abdomen is diffusely tender to palpate. Neurological: Alert and oriented x 3, cranial nerves II through XII grossly intact Skin: Warm and dry, no rashes. Musculoskeletal: Nontender to palpate along the cervical, thoracic or lumbar spine. Neck is supple. Extremities: 4+ pedal edema noted to upper and lower extremities bilaterally. No redness or warmth or signs of cellulitis. Redness noted to the left great toe and left 2nd toe with healing abrasions. No lymphangitis. Clinically the redness has improved compared to when he was admitted for cellulitis to the left foot on 06/14/2017. Psychiatric: Patient is oriented X 3, there is no agitation. (Rimma Shearer) Constitutional: Initial Vital Signs Temperature (C) 36.6 C 06/18/17 11:20 Heart Rate 112 H 06/18/17 11:20 Respiratory Rate 18 06/18/17 11:20 Blood Pressure 181/126 H 06/18/17 11:20 O2 Sat (%) 98 06/18/17 11:20 O2 Delivery Mode Room Air Allergies/Adverse Reactions: hydrocodone bitartrate [From Vicodin] Allergy (Verified 06/18/17 14:39) Nausea/Itching Home Medications: Medication Instructions Recorded Insulin Glargine [Lantus] 20 unit SQ TID 08/30/11 busPIRone [Buspar (*)] 10 mg PO BID PRN 10/20/15 Ranitidine HCl [Zantac] 150 mg PO BID PRN 07/02/16 Calcium Carbonate [Tums 500MG (*)] 1,000 mg PO TID PRN 06/14/17 Insulin Aspart [Novolog Flexpen] 2 - 8 unit SQ TIDMEAL 06/14/17 Lisinopril [Zestril 40 mg (*)] 40 mg PO DAILY 06/14/17 Amoxicillin/Clavulanate Pot 875 mg PO BID #14 tab 06/17/17 [Augmentin 875 MG TAB (*)] amLODIPine BESYLATE [Norvasc 10 mg 10 mg PO DAILY #30 tab 06/17/17 (*)] Medical Decision Making - Diagnostics Imaging: Discussed imaging studies w/ user support analyst supervisor Radiologist - Diagnostics Imaging Results: Imaging Impressions Head CT 06/18/17 13:03 Impression: Stable negative noncontrast CT of the brain. Results called to Dr. Rimma Solano PA-C at the time of the interpretation. Chest X-Ray 06/18/17 13:06 Impression: Retrocardiac soft tissue fullness, possible mediastinal process. Recommend chest CT with contrast. Hazy groundglass opacity mid aspect both lungs. Results called to Rimma Solano PA-C, at 2:15 PM.. ED Course/Re-evaluation: The patient was evaluated and managed by the physician's optometry assistant. My cosignature indicates that I reviewed the chart and I agree with the findings and plan of care as documented. I am the secondary supervising physician. ( Laquita Carrington) 32-year-old male presents to the emergency department with anasarca. The patient has diffuse pain. He did not receive narcotics in the emergency department. CT imaging of the brain was normal. Laboratory studies are otherwise unremarkable. His initial blood sugar was 192. Patient will be admitted to the hospital for diuresis. He did not receive IV fluids in the emergency department. He has not given himself insulin today. He has however "starving and foot. A diabetic tray has been ordered for him. The patient will be admitted to Dr. Becerra, hospitalist to the medical-surgical floor. (Rimma Shearer) Differential Diagnosis: Including but not limited to electrolyte abnormality, sepsis, medication reaction, fluid overload (Rimma Shearer) - Data Points Laboratory Results: Laboratory Results 06/18/17 13:30 06/18/17 13:30 06/18/17 06/18/17 06/18/17 13:30 13:30 13:30 WBC 8.75 10^3/uL 10^3/uL (3.80-9.50) RBC 3.65 10^6/uL L 10^6/uL (4.40-6.38) Hgb 9.6 g/dL L g/dL (13.7-17.5) Hct 29.1 % L % (40.0-51.0) MCV 79.7 fL L fL (81.5-99.8) MCH 26.3 pg L pg (27.9-34.1) MCHC 33.0 g/dL g/dL (32.4-36.7) RDW 14.8 % % (11.5-15.2) Plt Count 328 10^3/uL 10^3/uL (150-400) MPV 10.3 fL fL (8.7-11.7) Neut % (Auto) 81.2 % H % (39.3-74.2) Lymph % (Auto) 11.3 % L % (15.0-45.0) [place] % (Auto) 5.9 % % (4.5-13.0) Eos % (Auto) 0.8 % % (0.6-7.6) Baso % (Auto) 0.3 % % (0.3-1.7) Nucleat RBC Rel Count 0.0 % % (0.0-0.2) Absolute Neuts (auto) 7.10 10^3/uL H 10^3/uL (1.70-6.50) Absolute Lymphs (auto) 0.99 10^3/uL L 10^3/uL (1.00-3.00) Absolute Monos (auto) 0.52 10^3/uL 10^3/uL (0.30-0.80) Absolute Eos (auto) 0.07 10^3/uL 10^3/uL (0.03-0.40) Absolute Basos (auto) 0.03 10^3/uL 10^3/uL (0.02-0.10) Absolute Nucleated RBC 0.00 10^3/uL 10^3/uL (0-0.01) Immature Gran % 0.5 % % (0.0-1.1) Immature Gran # 0.04 10^3/uL 10^3/uL (0.00-0.10) Sodium 132 mEq/L L mEq/L (134-144) Potassium 4.1 mEq/L mEq/L (3.5-5.2) Chloride 99 mEq/L mEq/L (97-110) Carbon Dioxide 29 mEq/l mEq/l (22-31) Anion Gap 4 mEq/L L mEq/L (8-16) BUN 17 mg/dL mg/dL (7-23) Creatinine 0.6 mg/dL L mg/dL (0.7-1.3) Estimated GFR > 60 Glucose 192 mg/dL H mg/dL (70-100) Calcium 9.1 mg/dL mg/dL (8.5-10.4) Troponin I < 0.012 ng/mL ng/mL (0.000-0.034) NT-Pro-B Natriuret Pep 188 pg/mL H pg/mL (0-125) Medications Given: Acetaminophen (Tylenol) 650 mg PO Q4HRS PRN PRN Reason: Pain, Mild/Fever, Can Take PO Stop: 12/15/17 14:50 Last Admin: 06/18/17 18:22 Dose: 650 mg Insulin Glargine (Lantus Syringe) 20 units SC TID [facility] Stop: 12/15/17 16:29 Last Admin: 06/18/17 17:03 Dose: 20 units Insulin Human Lispro (Humalog Lispro) 2 - 8 unit SC TIDMEAL [facility] Stop: 12/15/17 17:59 Last Admin: 06/18/17 17:08 Dose: 8 units Discontinued Medications Amlodipine Besylate (Norvasc) 10 mg PO ONCE ONE Stop: 06/18/17 16:55 Last Admin: 06/18/17 17:08 Dose: 10 mg Furosemide (Lasix Injection) 40 mg IVP ONCE ONE Stop: 06/18/17 14:51 Last Admin: 06/18/17 17:09 Dose: Not Given Furosemide (Lasix Injection) 40 mg IVP ONCE ONE Stop: 06/18/17 17:01 Last Admin: 06/18/17 18:16 Dose: 40 mg Lisinopril (Zestril) 40 mg PO ONCE ONE Stop: 06/18/17 16:55 Last Admin: 06/18/17 17:08 Dose: 40 mg Departure - Departure Disposition: [facility] Inpatient Acute Clinical Impression: Anasarca, Insulin dependent diabetes mellitus Condition: Good
[2017-06-18 14:00] LABS: ANION GAP 4 mEq/L (8-16); CALCIUM 9.1 mg/dL (8.5-10.4); CARBON DIOXIDE 29 mEq/l (22-31); CHLORIDE 99 mEq/L (97-110); CREATININE 0.6 mg/dL (0.7-1.3); GLOMERULAR FILTRATION RATE > 60; GLUCOSE 192 mg/dL (70-100); POTASSIUM 4.1 mEq/L (3.5-5.2); SODIUM 132 mEq/L (134-144)
--- NOTE | 2017-06-18 14:07 | CPEKG ---
Heart Rate: 99 RR Interval: 606 P-R Interval: 168 QRSD Interval: 94 QT Interval: 364 QTC Interval: 468 P [place]: 49 QRS [place]: 38 T Wave [place]: 41 EKG Severity - NORMAL ECG - EKG Impression: SINUS RHYTHM Electronically Signed By: Laquita Carrington 18-Jun-2017 15:20:40
[2017-06-18 14:12] LABS: TROPONIN I < 0.012 ng/mL (0.000-0.034)
[2017-06-18] MEDS ORDERED: ALTEPLASE 2 MG VIAL IVP PRN (14:31)
[2017-06-18] MEDS ORDERED: FUROSEMIDE 40 MG/4 ML VIAL IVP ONE ×2 (14:50→17:00)
[2017-06-18] MEDS ORDERED: ZOLPIDEM TARTRATE 5 MG TAB PO PRN (14:51)
[2017-06-18] MEDS ORDERED: NON-FORMULARY NEW DRUG (Ranitidine Hcl [Zantac] 150 MG) PO PRN (14:53)
[2017-06-18] MEDS ORDERED: busPIRone 10 MG TAB PO PRN (14:53)
--- NOTE | 2017-06-18 14:58 | ASMTCMCOM ---
CM Note CM Note Notes: Patient admitted for extensive swelling to legs, arms, scrotum; and "not able move." Swelling related to anasarca. Patient recently in [facility] from 06/14 - 06/17/17 for DKA and abdominal pain. He was considering HC RN at the time of dc but ended up being discharged home independent with . Patient has insulin-dependent diabetes, history of non-compliance with medications and self-care. Pt was going to leave AMA yesterday but hospitalist was contacted and able to write discharge orders. Patient has a history of drug use and per chart review, pt was provided substance abuse resources but refused to participate in CAGE screening. Exact DC needs unknown at this time, CM to follow. Date Signed: 06/18/2017 02:57 PM Electronically Signed By:Shanti Ospina RN
[2017-06-18] MEDS ORDERED: INSULIN GLARGINE 20 UNIT SQ SCH (16:00)
[2017-06-18] MEDS ORDERED: FAMOTIDINE 20 MG TAB PO PRN (16:24)
[2017-06-18] MEDS ORDERED: IOPAMIDOL (ISOVUE-300) 100 ML BTL ONE ×2 (16:31→17:00)
[2017-06-18 16:45] LABS: COLOR YELLOW; LEUKOCYTE ESTERASE,URINE NEGATIVE (NEGATIVE); NITRITE,URINE NEGATIVE (NEGATIVE)
[2017-06-18 16:50] LABS: AMORPHOUS PRESENT /hpf (NONE-1+); MUCUS TRACE /lpf (NONE-1+)
[2017-06-18] MEDS ORDERED: LISINOPRIL 40 MG TAB PO ONE (16:54)
--- NOTE | 2017-06-18 16:57 | PDGENHP ---
History and Physical History and Physical: CC: Fall at home today HISTORY: This patient comes into the ER today because he had taken a bath and upon getting out of the bathtub he stood up and fell over striking his head upon floor. He did not lose consciousness. He has not had any neurologic symptoms but does have headache. There is no neck pain. There is no focal injury that he is aware of otherwise. He did not have palpitations, chest pain, shortness of breath, fever, nausea vomiting. He does not have prior episodes of heart disease or syncope. Notably the patient had just been discharged from this hospital yesterday after an episode of DKA and with a diabetic foot infection. His DKA had resolved very quickly. It was probably triggered by poor compliance with his insulin and monitoring as well as by ongoing use of drugs including cocaine and marijuana. The patient did have some edema as he left the hospital that was felt due to his fluid resuscitation for the DKA. There is no sign of heart failure. Also the patient has a diabetic foot infection as mention. This was a cellulitis without evidence of osteomyelitis or abscess. There was some open wounds on his toes that would have been from dropping something on his foot. He was responding nicely to antibiotics as he left the hospital. There was no fever associated with it. In addition the patient has chronically uncontrolled hypertension. He came to the hospital earlier last week he was on high-dose lisinopril. Norvasc was added. Notably he has not taken either his Norvasc or lisinopril today at home. ROS: A comprehensive 10 system review revealed no other significant findings PAST MEDICAL HISTORY: Diabetes mellitus type 1 multiple episodes of DKA Chronically poor management of his diabetes at home Hypertension Diabetic foot infection Polysubstance abuse with cocaine and marijuana FAMILY MEDICAL HISTORY: SOCIAL HISTORY: He has [employer] insurance and typically sees doctors at [facility]. Daily use of marijuana, smokes a small number of cigarettes, intermittently uses cocaine and had been using just recently. Describes that he has quite a lot of stress at home. Is employed MEDICATIONS: The patients list has been reconciled by our clinical pharmacist in the EMR. I have reviewed the list and ordered appropriate medicines. PHYSICAL EXAMINATION: Vital Signs: Hypertensive otherwise normal vitals Twisthand: Sinus rhythm in the ER Examination: General: alert, oriented, good mentation, relaxed Skin: warm, dry, good color, no rash HEENT: normal Neck: no mass or jvd Resps: relaxed Lungs: clear breath sounds Heart: regular, no murmur Abdomen: soft, nondistended, nontender, +BS, no mass There is some scrotal and penile edema persistent but this is less severe than on my examination yesterday Upper Extremities: normal, notably actually has less edema of the hands and wrists that he had yesterday before leaving the hospital Lower Extremities: He does have some pitting edema from the upper calf down to the distal feet bilaterally unchanged from yesterday; diabetic foot infection on the left and falls the 1st 2 toes which are mildly cellulitic with dorsal skin wounds on both toes each covered with a dried crusted tissue. Neither 1 shows any sign of drainage, fluctuance, or tenderness to suggest bone disease. No Bleeding or bruising Neurologic: normal speech/language, normal insole and heel stiffener, no focal weakness IV site: looks normal LABORATORY DATA: CBC with anemia improved from yesterday, white blood cell count 8000 Renal function stable, electrolytes stable, no sign of DKA RADIOLOGY STUDIES: Reviewed his foot x-ray from June 14 and again this showed no evidence of osteomyelitis in his toes or foot Chest x-ray done today in the ER, my review of the images: No evidence of heart failure or other acute abnormalities. There is a prominence of the lower mediastinal soft tissues, the radiologist has mentioned this as well and recommend CT scan assessment. This could be hiatal hernia but hard to say what this is ASSESSMENT: -lightheadedness with a fall at home -this is probably vagal or potentially aggravated by warm water from a bath as he was getting out of a bathtub. My suspicion for cardiac causes quite low at this time; question if he was using street drugs which is common for him -recently discharged after an episode of diabetic ketoacidosis3 -no evidence of recurrence at this time; sugars are high but he did not take his insulin this morning and did not getting any insulin in the ER -diabetic foot infection on antibiotics -on examination today can't compared to yesterday this looks slightly better ; there is no evidence of abscess and he had x-rays several days ago with no signs of osteomyelitis -uncontrolled hypertension -this is a chronic issue, but notably his blood pressures are fairly high this evening and he did not take his blood pressure medicines this morning -polysubstance abuse with cocaine and marijuana -unclear if he was using drugs at home today, which could potentially have aggravated his tendency towards lightheadedness and a fall -overall poor compliance with monitoring and management of diabetes at home -significant stressors at home -Had spoken with him about this yesterday, I recommend that he follow up with his residential tech at [facility] and seek referral to counseling The main issue for today is that the patient was lightheaded and did have a fall at home striking his head. There is no evidence of neurologic or head injury or spine injury. Will watch overnight to make sure that he is stable but will need to continue treating his underlying medical issues otherwise. In terms of his edema the edema present is really slightly improved from yesterday but will give some diuretic. His blood pressures chronically uncontrolled. His blood pressures very high right now but did not take either of his blood pressure medicine this morning. In terms of his diabetic foot infection that does appear to be improving with ongoing antibiotics PLANS: -observe overnight for stability with his lightheadedness -diuretic for his edema, along with Steven stockings -continue his usual insulin follow sugars -continue his Unasyn for his diabetic foot infection which proving -CT scan of chest to evaluate abnormalities seen on x-ray Suspect he will be able to go home tomorrow so will put on arbs
[2017-06-18] MEDS: INSULIN GLARGINE 100 UNITS/ML SYRINGE SC SCH ×2 (17:03→20:57)
[2017-06-18] MEDS: INSULIN LISPRO 100 UNIT/ML SC SCH (17:08)
[2017-06-18] MEDS ORDERED: NON-FORMULARY NEW DRUG (Insulin Aspart [Novolog Flexpen] 0 UNIT) SQ SCH (18:00)
[2017-06-18] MEDS: ACETAMINOPHEN 325 MG TAB PO PRN (18:22)
[2017-06-18] MEDS: AMOXICILLIN/CLAVULANATE POT 875/125 MG TAB PO SCH (20:57)
[2017-06-18] MEDS ORDERED: INSULIN GLARGINE 100 UNITS/ML SYRINGE SC SCH (21:00)
[2017-06-18] MEDS ORDERED: LABETALOL HCL 50 MG/10 ML SYR IVP PRN (23:11)
[2017-06-19] MEDS: INSULIN LISPRO 100 UNIT/ML SC SCH ×4 (00:24→17:43)
[2017-06-19 04:46] LABS: ANION GAP 4 mEq/L (8-16); CALCIUM 8.3 mg/dL (8.5-10.4); CARBON DIOXIDE 30 mEq/l (22-31); CHLORIDE 98 mEq/L (97-110); CREATININE 0.8 mg/dL (0.7-1.3); GLOMERULAR FILTRATION RATE > 60; GLUCOSE 202 mg/dL (70-100); POTASSIUM 3.8 mEq/L (3.5-5.2); SODIUM 132 mEq/L (134-144)
[2017-06-19] MEDS: INSULIN GLARGINE 100 UNITS/ML SYRINGE SC SCH ×3 (07:49→22:48)
[2017-06-19] MEDS: ONDANSETRON 4 MG/2 ML VIAL IVP PRN (08:11)
[2017-06-19] MEDS: AMOXICILLIN/CLAVULANATE POT 875/125 MG TAB PO SCH ×2 (08:26→21:22)
[2017-06-19] MEDS: LISINOPRIL 40 MG TAB PO SCH (08:27)
[2017-06-19] MEDS: ACETAMINOPHEN 325 MG TAB PO PRN ×2 (09:50→21:22)
[2017-06-19] MEDS ORDERED: FUROSEMIDE 20 MG/2 ML VIAL IVP ONE (11:23)
--- NOTE | 2017-06-19 11:33 | WOCRNPDOC ---
WOCRN Advanced Assessment Note - Skin Integrity Problem, Advanced Assess Left First Toe Dressing Type: Open to Air Exudate Amount: None Integumentary Issue Intervention: Dressing Applied, Silver Gel Applied Elías Wound Tissue: Erythema, Hot, Non-blanching, Swollen (moderate), Dry Elías Wound Swelling: Moderate Wound Bed Color: Brown Wound Bed Constitution: Scab Wound Edges: Attached, Well Defined Site Odor: None Site Measurement - Head-to-Toe Length X Width X Depth (cm): [id number] Skin Integrity Problem Comment: Patient with a round, well defined wound on great toe. Patient states that it happened a "week or so ago" when he dropped a large bottle of iced tea on it. Patient states that wound "looks better" than it has but this RN notes increased redness and swelling to toe since last encounter with this wound. Patient educated about the dangers of uncontrolled blood sugar and it's effect on wound healing with risks that include but are not limited to amputation. Patient states that he is trying to make lifestyle changes but that they are "more difficult than he thought.". Wound bed cleaned with NS and gauze. Skin prep applied to elías wound tissue and silvasorb applied to wound bed. On piece of replicare cut into quarters and used to cover wound bed, promoting autolytic debridement. Wound care will follow up later this week. Left Second Toe Dressing Type: Open to Air Exudate Amount: None Integumentary Issue Intervention: Dressing Applied, Silver Gel Applied Elías Wound Tissue: Erythema, Hot, Non-blanching, Swollen Elías Wound Swelling: Moderate Wound Bed Color: Brown, Yellow Wound Bed Constitution: Scab, Dried Exudate Wound Edges: Attached, Well Defined Site Measurement - Head-to-Toe Length X Width X Depth (cm): [id number] Skin Integrity Problem Comment: Per patient report, this wound was aquired at the same time as the wound on the great toe. The wound bed is scabbed with adhered, dried exudate. Elías wound tissue is red and dry. Wound cleaned with NS and gauze. Skin prep applied to elías wound tissue. Silvasorb was placed in the wound bed and covered with 1/4 of a cut replicare to autolytically debride this wound as well. Wound care will follow up later this week.
[2017-06-19] MEDS: HYDROCHLOROTHIAZIDE 25 MG TAB PO SCH (12:11)
--- NOTE | 2017-06-19 13:56 | HOSPPROG ---
Hospitalist Progress Note Assessment/Plan: 32-year-old male presents to the emergency room complaints of fall. This is my 1st encounter. Chart reviewed. Patient's care discussed with Dr. Becerra as well as Dr. Castañeda * lightheadedness with a fall at home -this is probably vagal or potentially aggravated by warm water from a bath as he was getting out of a bathtub. -question if he was using street drugs which is common for him *recently discharged after an episode of diabetic ketoacidosis -no evidence of recurrence at this time; sugars are high but he is monitoring them *diabetic foot infection on antibiotics -there is no evidence of abscess and he had x-rays several days ago with no signs of osteomyelitis Continue Augmentin *uncontrolled hypertension -this is a chronic issue, -will DC beta alena with hx of cocaine use -add HCTZ and follow *polysubstance abuse with cocaine and marijuana - could potentially have aggravated his tendency towards lightheadedness and a fall *overall poor compliance with monitoring and management of diabetes at home -significant stressors at home *Abnormal esophagus -EGD recommended, GI consult pending -plan for EGD at 9:00 a.m. tomorrow * lung nodule with abnormalities -CT scan in 3-4 months * tachycardia -unclear etiology -history of cocaine use -EKG stable -follow * paraesophageal hernia -per GI recommendations * thyroid nodule -ultrasound ordered * gastritis -acute and chronic -EGD in the a.m. * bilateral lower extremity edema -IV Lasix today -improved since yesterday per patient * dispo -unclear, await EGD results -changed to inpatient status PLANS: -diuretic for his edema, along with Steven stockings -continue his usual insulin follow sugars -continue Augmentin -EGD a.m. Subjective: Feeling better today. Still having some stomach issues. Concerned of blood sugars. Objective: Vital Signs Temp Pulse Resp BP Pulse Ox 37.4 C 111 H 14 145/94 H 98 06/19/17 12:00 06/19/17 12:00 06/19/17 12:00 06/19/17 12:00 06/19/17 12:00 Laboratory Results 06/19/17 04:20 06/18/17 06/19/17 06/20/17 05:59 05:59 05:59 Intake Total 800 Output Total 1900 Balance -1100 - Physical Exam Constitutional: appears nourished, not in pain, chronically ill appearing Eyes: PERRL, anicteric sclera, EOMI Ears, Nose, Mouth, Throat: moist mucous membranes, hearing normal, ears appear normal, poor dentition Cardiovascular: regular rate and rhythym, tachycardia, edema, No JVD Respiratory: no respiratory distress, no rales or rhonchi, reduced air movement Gastrointestinal: normoactive bowel sounds, No tenderness, No ascites Skin: warm, normal color, No erythema Neurologic: AAOx3 Psychiatric: not anxious, poor insight, poor judgement, poor memory ICD10 Worksheet Patient Problems: Problems Problem Status Onset DKA, type 1 Acute Hyperglycemia due to type 1 diabetes mellitus Acute Influenza A Acute DKA (diabetic ketoacidoses) Acute Pharyngitis Acute Vomiting Acute Dehydration Acute Abdominal pain Acute DKA (diabetic ketoacidoses) Acute Cellulitis Acute Vomiting Acute Diabetes Acute Anasarca Acute Insulin dependent diabetes mellitus Acute
--- NOTE | 2017-06-19 15:31 | PDMN ---
Medical Necessity Medical necessity: Change to IP, as of 06/19/17, per HISTOLOGIC TECHNICIAN; los >2 mn for ongoing eval/tx of lightheadedness r/t fall & multiple medical issues, including abnormal esophagus requiring EGD & GI consult, lung nodule w/abnormalities, paraesophageal hernia, thyroid nodule, gastritis, BLE edema requiring IV Lasix, diabetic foot infection, tachycardia & uncontrolled htn; hx diabetes w/multiple episodes of DKA, htn & polysubstance abuse; per progress note & order 06/19/17
[2017-06-19] MEDS: CALCIUM CARBONATE 500 MG CHEWABLE TAB PO PRN ×2 (16:26→21:23)
--- NOTE | 2017-06-19 16:52 | ASMTCMCOM ---
CM Note CM Note Notes: CM met w/ pt for dispo planning. Pt reports that he has all the substance abuse resources from his recent [facility] admission. Pt reports that he is in the process of getting tx for his substance use. Pt reports that he will do it once he is discharged from the hospital. Pt reports that he can set up HC if he needs it when he discharges. Anticipates that pt will discharge w/out any needs. CM provided pt w/ her business card, per his request. No therapies ordered at this time. CM available for d/c needs. Date Signed: 06/19/2017 04:52 PM Electronically Signed By:ИРИНА Meeks
[2017-06-20] MEDS: ONDANSETRON 4 MG/2 ML VIAL IVP PRN ×3 (04:28→23:27)
[2017-06-20] MEDS: CALCIUM CARBONATE 500 MG CHEWABLE TAB PO PRN ×3 (05:04→23:27)
[2017-06-20] MEDS: INSULIN GLARGINE 100 UNITS/ML SYRINGE SC SCH ×3 (07:54→19:18)
[2017-06-20] MEDS: INSULIN LISPRO 100 UNIT/ML SC SCH ×4 (07:58→16:24)
[2017-06-20] MEDS ORDERED: D50W 25 GM/50 ML VIAL ONE (08:05)
[2017-06-20] MEDS ORDERED: D50W 25 GM/50 ML VIAL IVP ONE (08:15)
--- NOTE | 2017-06-20 09:21 | PDANEPAE ---
ANE Past Medical History - Pulmonary History Hx Oxygen in Use at Home: No Hx Sleep Apnea: No Sleep Apnea Screening Result - Last Documented: Negative - Endocrine History Hx Diabetes: Yes - Chronic Pain History Chronic Pain: Yes ANE Review of Systems Review of systems is: negative (D) Review of Systems: Diabetes recent DKA ANE Patient History - Allergies Allergies/Adverse Reactions: hydrocodone bitartrate [From Vicodin] Allergy (Verified 06/18/17 14:39) Nausea/Itching - Home Medications Home Medications: Insulin Glargine [Lantus] 20 unit SQ TID 08/30/11 [Last Taken 06/17/17] busPIRone [Buspar (*)] 10 mg PO BID PRN 10/20/15 [Last Taken 06/13/17] Ranitidine HCl [Zantac] 150 mg PO BID PRN 07/02/16 [Last Taken 06/14/17 09:00] Calcium Carbonate [Tums 500MG (*)] 1,000 mg PO TID PRN 06/14/17 [Last Taken 07/23] Insulin Aspart [Novolog Flexpen] 2 - 8 unit SQ TIDMEAL 06/14/17 [Last Taken 06/23] Lisinopril [Zestril 40 mg (*)] 40 mg PO DAILY 06/14/17 [Last Taken 06/17/17] - NPO status NPO Since - Liquids (Date): 06/20/17 NPO Since - Liquids (Time): 00:01 NPO Since - Solids (Date): 06/20/17 NPO Since - Solids (Time): 00:01 - Smoking Hx Smoking Status: Current every day smoker ANE Labs/Vital Signs - Labs Result Diagrams: 06/18/17 13:30 06/19/17 04:20 - Vital Signs Blood Pressure: 160/100 Heart Rate: 110 Respiratory Rate: 18 O2 Sat (%): 98 Height: 182.88 cm Weight: 79.379 kg ANE Physical Exam - Airway Mallampati Score: Class 3 Mouth exam: poor dentition, dentures - Pulmonary Pulmonary: no respiratory distress, no rales or rhonchi - Cardiovascular Cardiovascular: regular rate and rhythym - ASA Status ASA Status: III (Glucose 74 on D5W)
--- NOTE | 2017-06-20 09:54 | GIREPORT ---
[facility] Surgical Services - Endoscopy Department Patient Name: Grover Mccracken Procedure Date: 06/20/2017 8:19 AM Patient Type: Inpatient Attending MD/ ER Physician: Mj Castañeda MD Procedure: Upper GI endoscopy Indications: Dysphagia, Heartburn, Abnormal CT of the GI tract Providers: Mj Castañeda MD Medicines: General Anesthesia Complications: No immediate complications. Description of Procedure: After obtaining informed consent, the endoscope was passed under direct vision. Throughout the procedure, the patient's blood pressure, pulse, and oxygen saturations were monitored continuously. The Endoscope was intro duced through the mouth, and advanced to the third part of duodenum. The Endo scope was introduced through the and advanced to the. The upper GI endoscopy was accomplished without difficulty. The patient tolerated the procedure we ll. Findings: LA Grade D (one or more mucosal breaks involving at least 75% of esopha geal circumference) esophagitis with no bleeding was found 26 to 34 cm from the incisors. Biopsies were taken with a cold forceps for histology. A medium-sized hiatal hernia was present. The examined duodenum was normal. Estimated Blood Loss: Estimated blood loss: none. Post Op Diagnosis: - LA Grade D reflux esophagitis. Biopsied. - Medium-sized hiatal hernia. - Normal examined duodenum. - I suspect his esophagitis is due to his recent DKA, possibly an eleme nt of gastroparesis and chronic reflux disease. Recommendation: - Await pathology results. - Use Protonix (pantoprazole) 40 mg PO BID indefinitely. - Repeat upper endoscopy in 3 months to check healing. - Mechanical soft diabetic diet. - Return patient to [facility] for ongoing care. - Thank you for allowing me to be involved in the care of your patient. Attending Participation: I personally performed the entire procedure without the assistance of a fellow, resident or surg ical business support assistant. Mj Castañeda MD Mj Castañeda MD 06/20/2017 9:53:57 AM This report has been signed electronicallyDavid MD Garry Number of Addenda: 0 Note Initiated On: 06/20/2017 8:19 AM [email or web address]
[2017-06-20] MEDS: ACETAMINOPHEN 325 MG TAB PO PRN (10:53)
[2017-06-20] MEDS: AMOXICILLIN/CLAVULANATE POT 875/125 MG TAB PO SCH ×2 (10:57→20:45)
[2017-06-20] MEDS: HYDROCHLOROTHIAZIDE 25 MG TAB PO SCH (10:58)
[2017-06-20] MEDS ORDERED: SUMAtriptan 6 MG/0.5 ML VIAL SC ONE (10:58)
[2017-06-20] MEDS: LISINOPRIL 40 MG TAB PO SCH (10:58)
--- NOTE | 2017-06-20 11:15 | POSTANESTH ---
Post Anesthetic Evaluation Respiratory Status: Normal, Stable Level of Consciousness/Mental Status: Mildly Sleepy, Arousable Pain Control: Adequate, Prn Tx Ordered Nausea/Vomiting Control: Adequate, Prn Tx Ordered Complications Possibly Related to Anesthesia: None Noted (One touch blood glucose checked in pacu: 98. D5W running TKO. Requested a further recheck on pt's arrival to floor. No complictions. Pt conversant in pacu.)
--- NOTE | 2017-06-20 14:06 | HOSPPROG ---
Hospitalist Progress Note Assessment/Plan: 32-year-old male presents to the emergency room complaints of fall. Patient' s care discussed with Dr. Becerra as well as Dr. Castañeda * lightheadedness with a fall at home -this is probably vagal or potentially aggravated by warm water from a bath as he was getting out of a bathtub. -question if he was using street drugs which is common for him -resolved *recently discharged after an episode of diabetic ketoacidosis -no evidence of recurrence at this time; sugars are high but he is monitoring them *Hypoglycemia -D50 given -pt was NPO *diabetic foot infection on antibiotics -there is no evidence of abscess and he had x-rays several days ago with no signs of osteomyelitis Continue Augmentin *uncontrolled hypertension -this is a chronic issue, -will DC beta alena with hx of cocaine use -add HCTZ and follow -add clonidine *polysubstance abuse with cocaine and marijuana - could potentially have aggravated his tendency towards lightheadedness and a fall *overall poor compliance with monitoring and management of diabetes at home -significant stressors at home *Abnormal esophagus -EGD done, see report -signs of gastritis -protonix BID -D/W Dr Castañeda * lung nodule with abnormalities -CT scan in 3-4 months * tachycardia -unclear etiology -history of cocaine use -EKG stable -follow * paraesophageal hernia -per GI recommendations * thyroid nodule -ultrasound shows increased vascularity -PSH pending -consider Laurie's * gastritis -acute and chronic -EGD shows thickening, see report -Protonix added twice daily * bilateral lower extremity edema -IV Lasix given. Responded well -improved since yesterday per patient * dispo -unclear, patient continues to be uncomfortable -continue inpatient evaluation PLANS: -continue his usual insulin follow sugars -continue Augmentin -start clonidine -await TSH Subjective: Patient complaining of a severe headache. Still complaining of testicular discomfort and swelling. Anxious about situation. Objective: Vital Signs Temp Pulse Resp BP Pulse Ox 36.6 C 114 H 18 165/112 H 98 06/20/17 12:51 06/20/17 12:51 06/20/17 12:51 06/20/17 12:51 06/20/17 12:51 06/19/17 06/20/17 06/21/17 05:59 05:59 05:59 Intake Total 700 Output Total 800 Balance 700 -800 - Physical Exam Constitutional: appears nourished, chronically ill appearing, uncomfortable Eyes: PERRL, anicteric sclera, EOMI Ears, Nose, Mouth, Throat: moist mucous membranes, hearing normal, ears appear normal, poor dentition Cardiovascular: tachycardia, edema, No JVD Respiratory: no respiratory distress, no rales or rhonchi, reduced air movement Gastrointestinal: normoactive bowel sounds, No tenderness, No ascites Genitourinary: other (Testicular swelling) Skin: warm, normal color, abrasion, No mottled Musculoskeletal: normal joint ROM, no joint effusions, generalized weakness Neurologic: AAOx3 Psychiatric: not encephalopathic, thought process linear, anxious ICD10 Worksheet Patient Problems: Problems Problem Status Onset DKA, type 1 Acute Hyperglycemia due to type 1 diabetes mellitus Acute Influenza A Acute DKA (diabetic ketoacidoses) Acute Pharyngitis Acute Vomiting Acute Dehydration Acute Abdominal pain Acute DKA (diabetic ketoacidoses) Acute Cellulitis Acute Vomiting Acute Diabetes Acute Anasarca Acute Insulin dependent diabetes mellitus Acute
[2017-06-20] MEDS: oxyCODONE IR 5 MG TAB PO PRN ×2 (16:25→20:45)
[2017-06-20] MEDS: PANTOPRAZOLE SODIUM 40 MG TAB PO SCH (20:44)
[2017-06-21] MEDS: oxyCODONE IR 5 MG TAB PO PRN ×2 (03:42→10:29)
[2017-06-21 08:22] VITALS: RESP 12
[2017-06-21] MEDS: INSULIN LISPRO 100 UNIT/ML SC SCH ×2 (08:33→11:57)
[2017-06-21] MEDS: PANTOPRAZOLE SODIUM 40 MG TAB PO SCH (10:29)
[2017-06-21] MEDS: HYDROCHLOROTHIAZIDE 25 MG TAB PO SCH (10:30)
[2017-06-21] MEDS: AMOXICILLIN/CLAVULANATE POT 875/125 MG TAB PO SCH (10:31)
[2017-06-21] MEDS ORDERED: SUMAtriptan 6 MG/0.5 ML VIAL SC ONE (11:12)
[2017-06-21] MEDS ORDERED: KETOROLAC 30 MG/1 ML SDV IVP ONE (11:12)
[2017-06-21 11:40] VITALS: BP 145/106; PULSE 105; TEMP 98.2; O2SAT 96
[2017-06-21] MEDS: ACETAMINOPHEN 325 MG TAB PO PRN (11:47)
[2017-06-21] MEDS: LISINOPRIL 40 MG TAB PO SCH (11:48)
[2017-06-21] MEDS: INSULIN GLARGINE 100 UNITS/ML SYRINGE SC SCH (11:48)
--- NOTE | 2017-06-21 16:40 | ASDISCHSUM ---
Discharge Information Plan Status:Home with No Needs Medically Cleared to Leave: Discharge Date:06/21/2017 03:16 PM CM D/C Disposition:Home, Routine, Self-Care ADT D/C Disposition:Home, Routine, Self-Care Projected Discharge Date:06/21/2017 03:16 PM Transportation at D/C: Discharge Delay Reason: Follow-Up Date:06/21/2017 03:16 PM Discharge Slot: Final Diagnosis: Placement Information Patient Contact Information Contact Name:CHARY Relationship:Mother Address:[address] City:[place] Alternate Phone: [facility]/Zip Code:[place] [address] Email: Financial Information Financial Class: Primary Plan Desc:[employer] [place] Primary Plan Number:[id number] Secondary Plan Desc: Secondary Plan Number: Assessment Information [facility] CM Progress Note CM Note CM Note Notes: Patient admitted for extensive swelling to legs, arms, scrotum; and "not able move." Swelling related to anasarca. Patient recently in [facility] from 06/14 - 06/17/17 for DKA and abdominal pain. He was considering HC RN at the time of dc but ended up being discharged home independent with . Patient has insulin-dependent diabetes, history of non-compliance with medications and self-care. Pt was going to leave A yesterday but hospitalist was contacted and able to write discharge orders. Patient has a history of drug use and per chart review, pt was provided substance abuse resources but refused to participate in CAGE screening. Exact DC needs unknown at this time, CM to follow. Date Signed: 06/18/2017 02:57 PM Electronically Signed By:Shanti Ospina RN [facility] Acuity / Level of Care Answers: Was the patient admitted to hospital via the emergency department? Yes: Emergency dept visits in Answers: 3 last 6 months Score: 6 Date Signed: 06/18/2017 03:00 PM Electronically Signed By:Shanti Ospina RN [facility] CM Progress Note CM Note CM Note Notes: CM met w/ pt for dispo planning. Pt reports that he has all the substance abuse resources from his recent [facility] admission. Pt reports that he is in the process of getting tx for his substance use. Pt reports that he will do it once he is discharged from the hospital. Pt reports that he can set up HC if he needs it when he discharges. Anticipates that pt will discharge w/out any needs. CM provided pt w/ her business card, per his request. No therapies ordered at this time. CM available for d/c needs. Date Signed: 06/19/2017 04:52 PM Electronically Signed By:ИРИНА Meeks Intervention Information
--- NOTE | 2017-06-22 03:25 | GDS ---
[f rep st] DISCHARGE SUMMARY DISCHARGE DIAGNOSES: 1. Fall. 2. Hypoglycemia. 3. Diabetic foot infection. 4. Hypertension. 5. Polysubstance abuse. 6. Gastritis. 7. Lung nodule. 8. Tachycardia. 9. Paraesophageal hernia. 10. Thyroid nodule. 11. Edema. 12. Scrotal swelling. 13. Headache. STUDIES AND PROCEDURES DONE: 1. CT of the chest. 2. CT of the head. 3. PICC line placement. 4. Ultrasound of the thyroid. 5. EGD. 6. Testicular ultrasound. CONSULTATIONS: Gastroenterology. PHYSICAL EXAMINATION: GENERAL: The patient is alert. VITAL SIGNS: Afebrile at 36.8, pulse is 105, respiratory rate is 12, blood pressure is 145/106. He is saturating 96% on room air. I have seen and evaluated the patient on the day of discharge. HOSPITAL COURSE: The patient is a 32-year-old male, who has ADHD at baseline with multiple chronic m edical problems. He was brought to the emergency room after suffering a fall and evaluated and diagn osed with: 1. Fall. This is multifactorial. The patient has had no further falls during this hospitalization. 2. Hypoglycemia. The patient will continue monitoring his blood sugar in the outpatient setting. 3. Diabetic foot infection. This is improving significantly with Augmentin with no signs of osteomy elitis, per x-ray. Followup in the outpatient setting is expected. 4. Hypertension. The patient has been initiated on clonidine, as well as hydrochlorothiazide during this hospitalization. I refrained from using a beta alena in him given his use of cocaine. He wi ll follow up with his primary care provider for further hypertensive management. 5. Polysubstance abuse. The patient has received counseling and therapy regarding his ADHD and self -medicating. It is recommended he be initiated on prescription medications for his ADHD with managem ent in the outpatient setting. 6. Gastritis. This is severe. The patient did receive a consultation from Gastroenterology during this hospital course. An EGD was performed, noting significant acid reflux. He has been initiated o n Protonix p.o. b.i.d. 7. Thyroid nodule. No laboratory values pending at the time of disposition. His TSH is elevated. He will require followup with his primary care doctor in the outpatient setting. 8. Paraesophageal hernia. This is stable. 9. Tachycardia. The etiology of this is unclear. Again, further workup in the outpatient setting i s indicated. The patient was offered a CT angio during this hospitalization to rule out PE, however, refused. His condition is not safe to be treated with beta alena given his cocaine use. Will def er to his primary care provider for further recommendations. 10. Bilateral lower extremity edema. He has responded well to Lasix and diuresing. He will continu e on hydrochlorothiazide in the outpatient setting. 11. Testicular swelling. The patient has not had any trauma. A testicular ultrasound was performed during this hospital course with no abnormalities identified. DISPOSITION: The patient will be discharged home independently. FOLLOWUP: He has arranged a follow-up appointment with his primary care provider in the next 1-2 day s. He will also follow up with his office clerk assistant in the next 1-2 days. I have spent greater than 35 minutes in the care, coordination, and management this patient's disposi tion and in assistance in arranging outpatient followup. DISCHARGE MEDICATIONS: Prescriptions have been provided for: 1. Catapres 0.1 mg p.o. b.i.d. 2. Hydrochlorothiazide 12.5 mg daily. 3. Protonix 40 mg b.i.d. 4. Imitrex 25 mg q.2 p.r.n. for migraine. Copy requested to: Geo Mccracken /[id number]/MODL
[2017-06-24 10:46] LABS: METANEPHRINES PLASMA METAP <0.20 nmol/L (<0.50); NORMETANEPHRINE PLASMA METAP <0.20 nmol/L (<0.90)
== END 2017-06-21 15:16 | disposition home or self-care (01) | DRG 639 ==
LOC: F3E 15:54 → OBSVTOIN 06-19 11:29
PROVIDERS: ADMIT Internal Medicine; ATTEND Internal Medicine
PROC: 02HV33Z Insertion of Infusion Device into Superior Vena Cava, Percutaneous Approach (ICD-10-PCS; 2017-06-18)
PROC: 0DB58ZX Excision of Esophagus, Via Natural or Artificial Opening Endoscopic, Diagnostic (ICD-10-PCS; principal; 2017-06-20 09:00)
DX: E10.649 Type 1 diabetes mellitus with hypoglycemia without coma (principal); E10.628 Type 1 diabetes mellitus with other skin complications; L08.9 Local infection of the skin and subcutaneous tissue, unspecified; K29.70 Gastritis, unspecified, without bleeding; I10 Essential (primary) hypertension; G43.909 Migraine, unspecified, not intractable, without status migrainosus; E04.1 Nontoxic single thyroid nodule; K44.9 Diaphragmatic hernia without obstruction or gangrene; W01.198A Fall on same level from slipping, tripping and stumbling with subsequent striking against other object, initial encounter; Y93.E1 Activity, personal bathing and showering; Y92.012 Bathroom of single-family (private) house as the place of occurrence of the external cause; Z79.4 Long term (current) use of insulin; Z72.0 Tobacco use; F14.10 Cocaine abuse, uncomplicated; F12.10 Cannabis abuse, uncomplicated; K21.9 Gastro-esophageal reflux disease without esophagitis
CPT/HCPCS: 82384-90; 83835-90; C1751; G0378; J1815; J1885; J1940; J2405; J3030; Q9967

== ENCOUNTER 2017-09-04 11:36 | Emergency (ER) | payer MEDICAID ==
--- NOTE | 2017-09-04 12:47 | EDPHY ---
H & P Stated Complaint: Llower back pain w/rad to L upper leg;out of narcotics~2wks Time Seen by Provider: 09/04/17 12:46 HPI/ROS: HPI: This is a 32-year-old male who presents with Chief Complaint: L lower back pain w/rad to L upper leg;out of narcotics~2wks Location: Left lower back Quality: Pain Duration: 1 week Signs and Symptoms: No bleeding, + radiation down outer edge of left leg, no numbness, no weakness, no tingling, no incontinence, + decreased range of motion , no swelling, + pain Timing: Gradual onset Severity: Moderate to severe Context: Patient reports that he uses cocaine almost daily but has not used in 5 days presents with gradual onset of left lower back pain with radiation down into his left leg. He was shoveling driveways during the recent snow which could have precipitated the discomfort. He denies any falls/trauma/ incontinence. Patient is ambulatory with a slow walk. He has tried nothing [id number] for the pain. He also complains of early infection of skin popping murphy on his arms and legs. He is requesting antibiotics to be given to him to prevent further infection. He denies warmth/tenderness/discharge. Modifying Factors: Comment: ROS: see HPI Constitutional: No fever, no chills, no weight loss Eyes: No blurred vision Respiratory: No shortness of breath, no cough Cardiovascular: No chest pain Gastrointestinal: No nausea, no vomiting no diarrhea Genitourinary: No dysuria Extremities: No myalgias Neurologic: No weakness, no numbness Skin: No rashes Hematologic: No bruising, no bleeding MEDICAL/SURGICAL/SOCIAL HISTORY: Medical history: TYPE 1 DIABETES mellitus, HTN, STREET DRUGS, chronic pain Surgical history: cranial surgery Social history: Self employed CONSTITUTIONAL: Adult white male, awake and alert, no obvious distress HEENT: Atraumatic and normocephalic, PERRL, EOMI. Tympanic membranes clear. Oropharynx clear, no exudate and moist pink mucosa. Airway patent. No lymphadenopathy. No meningismus. Cardiovascular: Normal S1/S2, regular rate, regular rhythm, without murmur rub or gallop. PULMONARY/CHEST: Symmetrical and nontender. Clear to auscultation bilaterally. Good air movement. No accessory muscle usage. ABDOMEN: Soft, nondistended, nontender, no rebound, no guarding, no peritoneal signs, no masses or organomegaly. No CVAT. PELVIC: no pain with rocking; bilateral hips flexion 125 degrees, extension 30 degrees, with no pain internal rotation and no pain external rotation. BACK: No midline tenderness, left lumbar reproducible paraspinous tenderness; mild left lumbar paraspinous spasm, deep tendon reflexes 2/2, no pain with straight leg raise. Able to walk on heels and toes with minimal difficulty. EXTREMITIES: 2/2 pulses, strength 5/5, no deformities, no clubbing, no cyanosis or edema. NEUROLOGICAL: no focal neuro deficits. GCS 15. SKIN: Warm and dry, scattered pock murphy cover in his arms and legs ranging in size from 2 mm to 6 mm in size; no fluctuance; pink in color; no discharge. No vesicles. No petechiae. no rash. Good capillary refill. Source: Patient Exam Limitations: No limitations - Personal History Current Tetanus Diphtheria and Acellular Pertussis (TDAP): Yes Tetanus Vaccine Date: 2014 - Medical/Surgical History Hx Asthma: No Hx Chronic Respiratory Disease: No Hx Diabetes: Yes Hx Cardiac Disease: No Hx Renal Disease: No Hx Cirrhosis: No Hx Alcoholism: No Hx HIV/AIDS: No Hx Splenectomy or Spleen Trauma: No Other PMH: TYPE 1 DIABETES, cranial sx, HTN, STREET DRUGS. chronic pain - Social History Smoking Status: Current every day smoker Constitutional: Initial Vital Signs Temperature (C) 36.7 C 09/04/17 11:45 Heart Rate 98 09/04/17 11:45 Respiratory Rate 18 09/04/17 11:45 Blood Pressure 190/108 H 09/04/17 11:45 O2 Sat (%) 94 09/04/17 11:45 O2 Delivery Mode Room Air Allergies/Adverse Reactions: hydrocodone bitartrate [From Vicodin] Allergy (Mild, Verified 09/04/17 11:54) Nausea/Itching Penicillins Allergy (Mild, Verified 09/04/17 11:54) itch Home Medications: Medication Instructions Recorded Insulin Glargine [Lantus] 20 unit SQ TID 08/30/11 busPIRone [Buspar (*)] 10 mg PO BID PRN 10/20/15 Insulin Aspart [Novolog Flexpen] 2 - 8 unit SQ TIDMEAL 06/14/17 Lisinopril [Zestril 40 mg (*)] 40 mg PO DAILY 06/14/17 amLODIPine BESYLATE [Norvasc 10 mg 10 mg PO DAILY #30 tab 06/17/17 (*)] Pantoprazole Sodium [Protonix 40mg 40 mg PO BID #60 tab 06/21/17 (*)] Cephalexin [Keflex (*)] 500 mg PO TID #21 cap 09/04/17 Furosemide [Lasix] 40 mg PO 09/04/17 Lidocaine 5% [Lidoderm 5% Patch 1 ea TD DAILY #6 patch 09/04/17 (*)] Naproxen Sodium [Naproxen Sodium 500 mg PO DAILY #5 tbmp.24hr 09/04/17 ER] hydrALAZINE [Apresoline 50 mg (*)] 50 mg PO 09/04/17 Medical Decision Making - Diagnostics Imaging Results: Imaging Impressions Lumbar Spine X-Ray 09/04/17 12:55 Impression: 1. Mild degenerative disk disease, especially the upper lumbar spine, without compression fractures or spondylolisthesis. 2. Consider MRI lumbar spine to further evaluate left radiculopathy if clinically indicated. ED Course/Re-evaluation: Lumbar x-ray, IM medication, oral medication ordered No signs of neurovascular compromise/tenting of skin/compartment syndrome/ extremities and joints examined above and below area of concern and are neurovascularly intact/cauda equina syndrome/saddle anesthesia/cellulitis/ abscess. Given IM Toradol 30 mg, IM Decadron 8 mg and p.o. Keflex with adequate relief Lumbar x-ray my read shows no significant degenerative disease/stenosis Keflex given to prevent infection for multiple areas of skin popping/scrapings. Patient is ambulatory at discharge This patient was seen under the supervision of my secondary supervising physician. I evaluated care for this patient independently. Differential Diagnosis: Back pain including but not limited to muscular pain, herniated disc, spine fracture, intra-abdominal causes and urinary tract infection. - Data Points Medications Given: Lidocaine (Lidoderm 5%) 1 ea TD DAILY JOHANA Stop: 03/04/18 08:59 Last Admin: 09/04/17 13:04 Dose: 1 ea Discontinued Medications Cephalexin HCl (Keflex) 500 mg PO EDNOW ONE PRN Reason: Protocol Stop: 09/04/17 12:57 Last Admin: 09/04/17 13:02 Dose: 500 mg Dexamethasone (Decadron Injection) 8 mg IM EDNOW ONE Stop: 09/04/17 12:59 Last Admin: 09/04/17 13:03 Dose: 8 mg Ketorolac Tromethamine (Toradol) 30 mg IM EDNOW ONE Stop: 09/04/17 12:59 Last Admin: 09/04/17 13:04 Dose: 30 mg Departure - Departure Disposition: Home, Routine, Self-Care Clinical Impression: Strain of lumbar paraspinal muscle Qualifiers: Encounter type: initial encounter Qualified Code(s): S39.012A - Strain of muscle, fascia and tendon of lower back, initial encounter Condition: Good Instructions: Low Back Strain (ED) Additional Instructions: User Lidoderm patch in the area of most discomfort of your lower back for 12 hr at a time. Walk daily and perform gentle stretching exercises. Take Tylenol 650 mg every 4 hours and/or Ibuprofen 600 mg every 8 hours with food as needed for pain. Please take all of your antibiotic until complete. Washer skin daily with mild soap and water. Pat dry. Please avoid picking at your skin which can cause further trauma. The x-rays obtained in the emergency department today demonstrate no evidence of an obvious fracture, stenosis or advanced degenerative changes. Referrals: [facility],. [Clinic] - As per Instructions Prescriptions: Cephalexin [Keflex (*)] 500 mg PO TID #21 cap Lidocaine 5% [Lidoderm 5% Patch (*)] 1 ea TD DAILY #6 patch Naproxen Sodium [Naproxen Sodium ER] 500 mg PO DAILY #5 tbmp.24hr
[2017-09-04] MEDS ORDERED: KETOROLAC 15 MG/1 ML SDV IVP ONE (12:55)
[2017-09-04] MEDS ORDERED: DEXAMETHASONE 4 MG/ML VIAL IVP ONE (12:55)
[2017-09-04] MEDS ORDERED: CEPHALEXIN 500 MG CAP PO ONE (12:56)
[2017-09-04] MEDS ORDERED: KETOROLAC 30 MG/1 ML SDV IM ONE (12:58)
[2017-09-04] MEDS ORDERED: DEXAMETHASONE 10 MG/ML VIAL IM ONE (12:58)
[2017-09-04] MEDS ORDERED: LIDOCAINE 5% 1 EA PATCH TD ONE (12:59)
[2017-09-04] MEDS: LIDOCAINE 5% 1 EA PATCH TD SCH ×2 (13:04→14:05)
[2017-09-04 14:02] VITALS: BP 191/120; PULSE 100; RESP 16; TEMP 98.2; O2SAT 97
[2017-09-04] MEDS ORDERED: PATCH REMOVAL 1 EA PATCH TD SCH (21:00)
== END 2017-09-04 14:33 | disposition home or self-care (01) ==
DX: S39.012A Strain of muscle, fascia and tendon of lower back, initial encounter (principal); E10.9 Type 1 diabetes mellitus without complications; I10 Essential (primary) hypertension; F17.200 Nicotine dependence, unspecified, uncomplicated; X58.XXXA Exposure to other specified factors, initial encounter; Y99.8 Other external cause status; Y93.H1 Activity, digging, shoveling and raking
CPT/HCPCS: J1100; J1885

== ENCOUNTER 2017-09-06 10:06 | Emergency (ER) | payer MEDICAID ==
[2017-09-06 10:26] VITALS: TEMP 98.1
--- NOTE | 2017-09-06 10:43 | EDPHY ---
H & P Stated Complaint: l sciatic back pain/htn/cocaine abuse Time Seen by Provider: 09/06/17 10:41 HPI/ROS: HPI: This is a 32-year-old male who presents with Chief Complaint: l sciatic back pain/htn/cocaine abuse Location: Left lower back Quality: Shooting pain Duration: Weeks Signs and Symptoms: No bleeding, + radiation down left leg no numbness, no weakness, no tingling, no incontinence, no decreased range of motion, no swelling, + pain Timing: Acute on chronic Severity: Moderate Context: Patient has a history of chronic back pain, cocaine use, uncontrolled hypertension, noncompliance with medication regimen presents today extremely anxious and complains of continued left lower back pain despite Lidoderm patch and naproxen. Patient was seen in the emergency room by myself 2 days ago with images showing mild degenerative changes. No signs of neurovascular compromise/ cauda equina syndrome/saddle anesthesia. Patient denies any radiation/ incontinence/paresthesias. He is ambulatory without deficits. He reports that he has a primary care appointment tomorrow with Stan. He takes for blood pressure medications per day but is unsure of the name. He denies chest pain/ shortness of breath/palpitations/abdominal pain. Patient admits that he is extremely anxious and now does not want to be here in the emergency room. After speaking with the patient for 15 min have convinced him to stay. Patient reports that his blood sugars have been running in the 150s. Modifying Factors: Above Comment: ROS: see HPI Constitutional: No fever, no chills, no weight loss Eyes: No blurred vision Respiratory: No shortness of breath, no cough Cardiovascular: No chest pain Gastrointestinal: No nausea, no vomiting no diarrhea Genitourinary: No dysuria Extremities: No myalgias Neurologic: No weakness, no numbness Skin: No rashes Hematologic: No bruising, no bleeding MEDICAL/SURGICAL/SOCIAL HISTORY: Medical history: TYPE 1 DIABETES, HTN, STREET DRUGS, chronic pain Surgical history: cranial sx, Social history: Unemployed. CONSTITUTIONAL: Untidy, anxious, adult white male awake and alert, no obvious distress HEENT: Atraumatic and normocephalic. NECK: supple, no midline tenderness, no JVD, No meningismus. Cardiovascular: Normal S1/S2, regular rate, regular rhythm, without murmur rub or gallop. PULMONARY/CHEST: Symmetrical and nontender. no crepitus. Clear to auscultation bilaterally. Good air movement. No accessory muscle usage. ABDOMEN: Soft, nondistended, nontender, no ecchymosis. PELVIC: no pain with rocking; bilateral hips flexion 125 degrees, extension 30 degrees, with no pain internal rotation and no pain external rotation. BACK: No midline tenderness, no paraspinous spasm, deep tendon reflexes 2/2, no pain with straight leg raise EXTREMITIES: 2/2 pulses, no deformities, no clubbing, no cyanosis or edema. NEUROLOGICAL: no focal neuro deficits. GCS 15. Light touch sensation intact. Able to walk on heels and toes without difficulty. SKIN: Warm and dry, no erythema. no rash. Good capillary refill. Source: Patient Exam Limitations: No limitations - Personal History Current Tetanus/Diphtheria Vaccine: Yes Tetanus Vaccine Date: 2014 - Medical/Surgical History Hx Asthma: No Hx Chronic Respiratory Disease: No Hx Diabetes: Yes Hx Cardiac Disease: No Hx Renal Disease: No Hx Cirrhosis: No Hx Alcoholism: No Hx HIV/AIDS: No Hx Splenectomy or Spleen Trauma: No Other PMH: TYPE 1 DIABETES, cranial sx, HTN, STREET DRUGS. chronic pain - Social History Smoking Status: Current every day smoker Constitutional: Initial Vital Signs Temperature (C) 36.7 C 09/06/17 10:23 Heart Rate 95 09/06/17 10:23 Respiratory Rate 17 09/06/17 10:23 Blood Pressure 207/134 H 09/06/17 10:23 O2 Sat (%) 99 09/06/17 10:23 O2 Delivery Mode Room Air Allergies/Adverse Reactions: hydrocodone bitartrate [From Vicodin] Allergy (Mild, Verified 09/06/17 10:23) Nausea/Itching Penicillins Allergy (Mild, Verified 09/06/17 10:23) itch Home Medications: Medication Instructions Recorded Insulin Glargine [Lantus] 20 unit SQ TID 08/30/11 busPIRone [Buspar (*)] 10 mg PO BID PRN 10/20/15 Insulin Aspart [Novolog Flexpen] 2 - 8 unit SQ TIDMEAL 06/14/17 Lisinopril [Zestril 40 mg (*)] 40 mg PO DAILY 06/14/17 amLODIPine BESYLATE [Norvasc 10 mg 10 mg PO DAILY #30 tab 06/17/17 (*)] Pantoprazole Sodium [Protonix 40mg 40 mg PO BID #60 tab 06/21/17 (*)] Cephalexin [Keflex (*)] 500 mg PO TID #21 cap 09/04/17 Furosemide [Lasix] 40 mg PO 09/04/17 Lidocaine 5% [Lidoderm 5% Patch 1 ea TD DAILY #6 patch 09/04/17 (*)] Naproxen Sodium [Naproxen Sodium 500 mg PO DAILY #5 tbmp.24hr 09/04/17 ER] hydrALAZINE [Apresoline 50 mg (*)] 50 mg PO 09/04/17 Medical Decision Making ED Course/Re-evaluation: Patient refused laboratory studies and further imaging. He is requesting pain control only. Blood pressure again is elevated upon arrival. Patient reports compliance with his blood pressure medication. Refuses EKG/CXR Given IV Decadron, IV Valium, IV Haldol and PO clonidine 0.2 mg and IV Vasotec for hypertension 1130: Patient walking back and forth to the bathroom without ataxia or signs of discomfort. [id number]: Patient is sleeping soundly in the emergency room. Reports moderate relief of low back pain. 1300: Patient requesting to sign out AMA. He is alert and oriented x4. Competent to make his own decisions albeit poor judgment. Discussed with patient admission into the hospital regarding hypertensive urgency. Patient refuses to be admitted along with any further workup. Patient reports that he is compliant on his for blood pressure medications and denies any chest pain/ headache/shortness of breath. He reports that he sees his [place] primary care provider tomorrow and will discuss his situation with his PCP at this time. Differential Diagnosis: Back pain including but not limited to muscular pain, herniated disc, spine fracture, intra-abdominal causes and urinary tract infection. - Data Points Medications Given: Discontinued Medications Clonidine (Catapres) 0.2 mg PO EDNOW ONE Stop: 09/06/17 12:21 Last Admin: 09/06/17 12:30 Dose: 0.2 mg Dexamethasone (Decadron Injection) 8 mg IVP EDNOW ONE Stop: 09/06/17 10:48 Last Admin: 09/06/17 11:12 Dose: 8 mg Diazepam (Valium) 5 mg IVP EDNOW ONE Stop: 09/06/17 10:48 Last Admin: 09/06/17 11:02 Dose: Not Given Diazepam (Valium) 5 mg PO EDNOW ONE Stop: 09/06/17 11:03 Last Admin: 09/06/17 11:12 Dose: 5 mg Enalaprilat (Vasotec Iv) 1.25 mg IVP EDNOW ONE Stop: 09/06/17 12:21 Last Admin: 09/06/17 12:31 Dose: 1.25 mg Haloperidol Lactate (Haldol Injection) 2.5 mg IVP EDNOW ONE Stop: 09/06/17 10:48 Last Admin: 09/06/17 11:13 Dose: 2.5 mg Departure - Departure Disposition: Against Medical Advice Clinical Impression: Hypertensive urgency, Anxiety, Cocaine use Chronic low back pain Qualifiers: Back pain laterality: left Sciatica presence: with sciatica Sciatica laterality : sciatica of left side Qualified Code(s): M54.42 - Lumbago with sciatica, left side; G89.29 - Other chronic pain; G89.29 - Other chronic pain Condition: Fair Instructions: Hypertensive Crisis (ED), Hypertension (ED) Additional Instructions: Please take your for blood pressure medications as directed. Keep your follow-up appointment with your primary care provider tomorrow to discuss obtaining target goal blood pressure. If at any time you develop worsening of symptoms, return to the emergency room. Referrals: PCP Not In,Dictionary [Medical Doctor] - 1 day without fail
[2017-09-06] MEDS ORDERED: HALOPERIDOL LACT 5 MG/ML INJ IVP ONE (10:47)
[2017-09-06] MEDS ORDERED: DEXAMETHASONE 4 MG/ML VIAL IVP ONE (10:47)
[2017-09-06] MEDS ORDERED: DIAZEPAM 10 MG/2 ML SYR IVP ONE (10:47)
[2017-09-06] MEDS ORDERED: DIAZEPAM 5 MG TAB PO ONE (11:02)
[2017-09-06] MEDS ORDERED: HYDROmorphONE/DILAUDID 1 MG/ML INJ IVP ONE (11:31)
[2017-09-06 12:17] VITALS: BP 209/134; PULSE 96; RESP 16; O2SAT 97
[2017-09-06] MEDS ORDERED: ENALAPRILAT DIHYDRATE 1.25 MG/ML VIAL IVP ONE (12:20)
== END 2017-09-06 13:12 | disposition left against medical advice (07) ==
DX: I16.0 Hypertensive urgency (principal); F41.9 Anxiety disorder, unspecified; F14.10 Cocaine abuse, uncomplicated; M54.42 Lumbago with sciatica, left side; G89.29 Other chronic pain; I10 Essential (primary) hypertension; E10.9 Type 1 diabetes mellitus without complications; F17.200 Nicotine dependence, unspecified, uncomplicated
CPT/HCPCS: 96374; J1100; J1630

== ENCOUNTER 2017-10-20 10:39 | Inpatient (IN) | payer MEDICAID ==
[2017-10-20] MEDS ORDERED: NS 1,000 ML IV ONE ×2 (11:09→14:25)
--- NOTE | 2017-10-20 11:28 | EDPHY ---
H & P Time Seen by Provider: 10/20/17 10:44 HPI/ROS: CHIEF COMPLAINT: Weakness, difficulty walking, pain HISTORY OF PRESENT ILLNESS: 32-year-old male with multiple medical problems including type 1 diabetic with poor compliance and multiple episodes DKA and substance abuse presents to the emergency department with his mother complaining of weakness, vomiting and difficulty walking. The patient states around 2 o'clock this morning he states that when he was in diffuse pain and felt very nauseous and started vomiting. He has vomited 3 times. No diarrhea. He states he has not had a normal bowel movement and nearly 2 weeks. He has pain in his lower back and weakness in his legs. He feels short of breath. He is having some pain in his chest. Complains of lower back discomfort. He had an MRI of his "low back and legs"at [facility] 2 days ago. The patient has a history of sciatica on the left side. He has had pain in weakness in his legs before, however "not like this". No fevers or chills. No cough. No rhinorrhea or nasal congestion. No fevers or chills. He admits to using cocaine yesterday afternoon around 2:00 p.m.. He also admits to using a friend' s morphine yesterday afternoon. REVIEW OF SYSTEMS: Constitutional: No fever, no chills. Eyes: No double or blurry vision. ENT: No sore throat. Respiratory: Shortness of breath. No cough Cardiac: Chest pain. Gastrointestinal: No abdominal pain, vomiting or diarrhea. Genitourinary: No dysuria. Musculoskeletal: Back pain as directed. No neck pain. Skin: No rashes. Neurological: Left-sided headache. Past Medical/Surgical History: Type 1 diabetic, multiple episodes of DKA, hypertension, substance abuse including cocaine at 2:00 p.m. 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 Afebrile, 102/63, 99% on room air. Well-healed surgical scars to both the left and the right side of his scalp. Eyes: Pupils equal and round. Extraocular motions are all intact. ENT: Mouth: Mucous membranes moist. Respiratory: No wheezing, rhonchi, or rales, lungs are clear to auscultation. Cardiovascular: Regular rate and rhythm. Gastrointestinal: Abdomen is soft and nontender, no masses, no rebound or guarding, bowel sounds normal. Neurological: Alert and oriented x 3, cranial nerves II through XII grossly intact Skin: Multiple excoriating appearing wounds especially to the anterior aspect of the neck just below his chin, they are also diffusely to his upper back. There is also a lesion that is erythematous and appears to have some cream on it to the right medial ankle. There is no surrounding redness or other evidence of cellulitis. No evidence of abscess. Musculoskeletal: Nontender to palpate along the cervical, thoracic or lumbar spine. Neck is supple. Extremities: Full range of motion and no peripheral edema. Psychiatric: Patient is oriented X 3, there is no agitation. Constitutional: Initial Vital Signs Temperature (C) 36.5 C 10/20/17 10:43 Heart Rate 103 H 10/20/17 10:43 Respiratory Rate 18 10/20/17 10:43 Blood Pressure 102/63 10/20/17 10:43 O2 Sat (%) 99 10/20/17 10:43 O2 Delivery Mode Nasal Cannula O2 (L/minute) 2 Allergies/Adverse Reactions: hydrocodone bitartrate [From Vicodin] Allergy (Mild, Verified 10/20/17 10:42) Nausea/Itching Penicillins Allergy (Mild, Verified 10/20/17 10:42) itch morphine Allergy (Verified 10/20/17 13:26) "MAKES ME FEEL WEIRD" BEE STINGS Allergy (Uncoded 10/20/17 13:26) Home Medications: Medication Instructions Recorded Insulin Glargine [Lantus] 22 unit SQ BID 08/30/11 busPIRone [Buspar (*)] 10 mg PO BID PRN 10/20/15 Insulin Aspart [Novolog Flexpen] 0 unit SQ TIDMEAL 06/14/17 Lisinopril [Zestril 40 mg (*)] 40 mg PO DAILY 06/14/17 amLODIPine BESYLATE [Norvasc 10 mg 10 mg PO DAILY #30 tab 06/17/17 (*)] Pantoprazole Sodium [Protonix 40mg 40 mg PO BID #60 tab 06/21/17 (*)] Furosemide [Lasix] 40 mg PO DAILY 01/29/18 Ferrous Sulfate [Ferrous Sulf 325 325 mg PO DAILY 10/20/17 MG (*)] clonazePAM [Klonopin (*)] 0.5 - 1 mg PO DAILY PRN 10/20/17 Medical Decision Making - Diagnostics EKG Interpretation: Interpreted by Dr. Paz Marsh. See interpretation in trace master. ED Course/Re-evaluation: Patient has multiple areas of skin abrasions and open wounds. They do not appear acutely infected. The patient has been followed by a wound care clinic for this. He apparently does not have MRSA. This 32-year-old male has multiple chronic problems. He admits to using cocaine yesterday as well as morphine provided by his friend. He presented to the emergency department with chest pain and weakness. He has EKG changes consistent with ischemia. His troponin is 0.030. The patient describes diffuse overall pain. He has a history of sciatica and had a recent MRI of the lumbar spine done at [facility] 2 days ago. He has had ongoing weakness and pain for months. Given EKG changes and subjective complaint of chest pain and shortness of breath , the patient will be admitted to the telemetry unit and admitted to Dr. Taylor. The patient does have a history of chronic pain. I did explain to him that he would not be given narcotics while he was in the emergency department. The case was discussed with Dr. Paz Marsh, supervising physician, who did not directly evaluate the patient but agrees with treatment and plan. Differential Diagnosis: Chest pain including but not limited to myocardial ischemia, pulmonary embolus, chest wall pain, pleural inflammation and pulmonary infectious causes. Weakness including but not limited to electrolyte abnormality, depression, anxiety, CVA, spinal cord abnormality, and infectious causes. - Data Points Laboratory Results: Laboratory Results 10/20/17 11:21 10/20/17 11:21 Medications Given: Acetaminophen (Tylenol) 650 mg PO Q4HRS PRN PRN Reason: Pain, Mild/Fever, Can Take PO Stop: 04/18/18 14:24 Last Admin: 10/21/17 04:06 Dose: 650 mg Amlodipine Besylate (Norvasc) 10 mg PO DAILY JOHANA Stop: 04/18/18 14:44 Last Admin: 10/20/17 14:55 Dose: 10 mg Clonazepam (Klonopin) 0.5 - 1 mg PO DAILY PRN PRN Reason: Anxiety Stop: 04/18/18 14:39 Last Admin: 10/20/17 18:11 Dose: 1 mg Hydralazine HCl (Apresoline) 5 mg IVP Q6HRS PRN PRN Reason: SBP > 180 Stop: 04/18/18 14:41 Last Admin: 10/21/17 04:07 Dose: 5 mg Insulin Glargine (Lantus Syringe) 22 units SC BID [facility] Stop: 04/18/18 20:59 Last Admin: 10/20/17 21:10 Dose: 22 units Insulin Human Lispro (Humalog Lispro) 0 unit SC TIDMEAL JOHANA PRN Reason: Protocol Stop: 04/18/18 17:59 Last Admin: 10/20/17 18:10 Dose: 2 units Lisinopril (Zestril) 40 mg PO DAILY [facility] Stop: 04/18/18 14:44 Last Admin: 10/20/17 14:55 Dose: 40 mg Ondansetron HCl (Zofran Odt) 4 mg PO Q4HRS PRN PRN Reason: Nausea/Vomiting, Use 1st Stop: 04/18/18 14:24 Last Admin: 10/21/17 04:06 Dose: 4 mg Pantoprazole Sodium (Protonix) 40 mg PO BID [facility] Stop: 04/18/18 14:44 Last Admin: 10/20/17 21:10 Dose: 40 mg Tramadol HCl (Ultram) 50 mg PO Q6HRS PRN PRN Reason: Pain, Moderate Able to Take PO Stop: 04/18/18 14:43 Last Admin: 10/20/17 21:10 Dose: 50 mg Discontinued Medications Aspirin (Aspirin) 325 mg PO EDNOW ONE Stop: 10/20/17 11:41 Last Admin: 10/20/17 12:09 Dose: 325 mg Sodium Chloride (Ns) 1,000 mls @ 0 mls/hr IV ONCE ONE PRN Reason: Wide Open Stop: 10/20/17 11:10 Last Admin: 10/20/17 11:30 Dose: 1,000 mls Sodium Chloride (Ns) 1,000 mls @ 3,000 mls/hr IV ONCE ONE Stop: 10/20/17 14:44 Last Admin: 10/20/17 14:56 Dose: 1,000 mls Lorazepam (Ativan Injection) 1 mg IVP EDNOW ONE Stop: 10/20/17 12:31 Last Admin: 10/20/17 14:53 Dose: Not Given Nitroglycerin (Nitrostat) 0.4 mg SL EDNOW ONE Stop: 10/20/17 11:42 Last Admin: 10/20/17 12:09 Dose: 0.4 mg Departure - Departure Disposition: [facility] Acute Clinical Impression: Insulin dependent diabetes mellitus, Multiple open wounds, Weakness, Substance abuse Chest pain Qualifiers: Chest pain type: unspecified Qualified Code(s): R07.9 - Chest pain, unspecified Chronic pain Qualifiers: Chronic pain type: other chronic pain Qualified Code(s): G89.29 - Other chronic pain
--- NOTE | 2017-10-20 11:35 | CPEKG ---
Heart Rate: 96 RR Interval: 625 P-R Interval: 156 QRSD Interval: 110 QT Interval: 360 QTC Interval: 455 P [place]: 68 QRS [place]: 74 T Wave [place]: -80 EKG Severity - ABNORMAL ECG - EKG Impression: SINUS RHYTHM EKG Impression: NONSPECIFIC INTRAVENTRICULAR CONDUCTION DELAY EKG Impression: BORDERLINE INFERIOR Q WAVES EKG Impression: T wave inversion anterolateral leads Electronically Signed By: Paz Marsh 20-Oct-2017 15:11:59
[2017-10-20] MEDS ORDERED: ASPIRIN 325 MG TAB PO ONE (11:40)
[2017-10-20 11:41] LABS: PLATELET COUNT 371 10^3/uL (150-400)
[2017-10-20] MEDS ORDERED: NITROGLYCERIN 0.4 MG BTL SL ONE (11:41)
[2017-10-20] MEDS ORDERED: LORazepam 2 MG/ML INJ IVP ONE (12:30)
[2017-10-20] MEDS ORDERED: ONDANSETRON 4 MG/2 ML VIAL IVP PRN (14:25)
[2017-10-20] MEDS ORDERED: D50W 25 GM/50 ML SYR IVP PRN (14:39)
[2017-10-20] MEDS ORDERED: clonazePAM 0.5 MG TAB PO PRN (14:40)
[2017-10-20] MEDS ORDERED: busPIRone 10 MG TAB PO PRN (14:40)
[2017-10-20] MEDS: PANTOPRAZOLE SODIUM 40 MG TAB PO SCH ×2 (14:55→21:10)
[2017-10-20] MEDS: traMADol 50 MG TAB PO PRN ×2 (14:55→21:10)
[2017-10-20] MEDS: LISINOPRIL 40 MG TAB PO SCH (14:55)
--- NOTE | 2017-10-20 15:26 | GHP ---
[f rep st] HISTORY AND PHYSICAL DATE OF ADMISSION: 10/20/2017 CHIEF COMPLAINT: Pain, feeling terrible. HISTORY OF PRESENT ILLNESS: A 32-year-old male, with a history of diabetes, hypertension, and polysu bstance abuse, who presents reporting chest discomfort, palpitations, weakness, bilateral lower extre mity pain, and overall feeling terrible. Patient reports that he was feeling so badly that the eveni ng prior to presentation, decided to use cocaine, to ingest unknown amount of a morphine tincture pro vided by his friend, and smoked pot. Patient reported that his shortness of breath was so severe whi le combining all of these substances that he had to rock back and forth to remind himself to breathe. After that, he used more cocaine, then developed palpitations, chest discomfort, and decided to pre sent to the emergency department for evaluation. In the ED, he is endorsing headache, endorsing dizz iness, endorsing palpitations, endorsing chest pain, reporting nausea, abdominal discomfort, bilatera l lower extremity pain which is worse than his chronic, and a sensation of fevers and chills. Freddy tabares reports a period of sobriety which he broke to combine all these substances last night because he w as treating his chronic sciatic lower extremity pain. PAST MEDICAL HISTORY: 1. Diabetes. 2. Hypertension. 3. Polysubstance abuse. 4. History of diabetic foot infections. 5. History of episodes of DKA. 6. Chronic wounds managed at the wound care clinic. 7. Chronic lower extremity pain described as sciatic. 8. Anxiety, treated with outpatient medications. SOCIAL HISTORY: Positive for cocaine, marijuana, experimental use of morphine, occasionally smokes c igarettes, refuses alcohol. FAMILY HISTORY: Positive, he thinks, for diabetes. REVIEW OF SYSTEMS: A 10-point review of systems is negative with the exception of that reported in t he HPI. PHYSICAL EXAMINATION: VITAL SIGNS: Blood pressure is 192/110, heart rate 110, respiratory rate 16, 96% on room air, 36.7. GENERAL: This is a very disheveled young male in distress. HEENT: Notable f or dry mucous membranes. Eye exam is negative for any icterus. CARDIAC: Patient is regular and tac hycardic. PULMONARY: Clear to auscultation bilaterally. GASTROINTESTINAL: Positive bowel sounds. Abdomen is tender diffusely. No rebound or guarding. MUSCULOSKELETAL: Negative for any lower extr emity edema. SKIN: Notable for scattered wounds in various stages of healing on his extremities and chin. NEUROLOGIC: He is alert and oriented x3. PSYCHIATRIC: He is anxious and tearful on my exam ination. DATA: White count 8.7, hematocrit 26.8 which appears baseline, platelets 371. Sodium 129, baseline appears to be 130. Potassium 3.4, BUN 31, creatinine 1.2, blood glucose 245. Hemoglobin A1c 017 was 14.3. Troponin is 0.03. EKG, which I personally reviewed and interpreted, shows sinus rhyth m, normal axis, inferior ST depression with T-wave inversions V2 through V6, ST depression in V6. Th e T-wave inversions and ST depressions are new compared to June 2017. ASSESSMENT AND PLAN: This is a 32-year-old male, presenting with chest pain, palpitations, and polys ubstance abuse. 1. Chest pain. Patient endorses use of cocaine prior to presentation, does have an indeterminate tr oponin as well as EKG changes and tachycardia that I suspect are related to his ingestion of the ment ioned stimulant. Will admit the patient to telemetry, monitor overnight with serial troponin and sup portive care. I would not proceed for risk stratification at this time. Will follow patient's clini jacqui progress before additional diagnostics are ordered. 2. Acute kidney injury, suspect secondary to hypovolemia. Will fluid resuscitate with normal saline . Recheck his renal function in the morning. 3. Diabetes, historically very poorly controlled with hemoglobin A1c consistently in the 14s. Will continue his glargine and cover with sliding scale insulin. 4. Polysubstance abuse. This is certainly complicating patient's underlying medical conditions. Wi ll provide resources when the patient is emotionally more stable to receive that type of support. 5. Anxiety. Patient is treated chronically with Buspar and Klonopin. Will continue these and avoid additional sedating medications at this time. 6. Chronic pain. Will treat with Ultram. Have discussed that we will not use narcotics during this hospital stay. 7. Prophylaxis with Lovenox. DIET: Diabetic. DISPOSITION: I expect greater than 2 midnights as patient is presenting with multiple complaints and complications related to substance abuse. I have discussed the case with the emergency room physici an. Patient will be triaged to the PCU for care. /[id number]/MODL
--- NOTE | 2017-10-20 15:59 | ASMTCMCOM ---
CM Note CM Note Notes: Chart reviewed. 32 year old male admitted through ED for c/o weakness. He is Type 1 diabetic and lives with his mother here in [place] . Admits to polysubstance abuse yesterday. Needs to be determined. Likely independent to home when medically stable. CM to assess knowledge of resources to help with drug abuse. Date Signed: 10/20/2017 03:59 PM Electronically Signed By:Summer Espinal RN
[2017-10-20] MEDS: ONDANSETRON DISINTEGRATING 4 MG TAB PO PRN (17:55)
[2017-10-20] MEDS: INSULIN LISPRO 100 UNIT/ML SC SCH (18:10)
[2017-10-20] MEDS: hydrALAZINE 20 MG/ML VIAL IVP PRN (18:11)
[2017-10-20] MEDS: ACETAMINOPHEN 325 MG TAB PO PRN (18:18)
--- NOTE | 2017-10-20 18:44 | PDMN ---
Medical Necessity Medical necessity: C/M review: est. > 2 MN LOS for eval and TX of acute chest pain, palpitations, acute kidney injury requiring planned Wound Care consult, serial troponin monitoring, ongoing cardiac monitoring, comorbid cocaine use prior to this admission, diabetes - historically very poorly controlled, polysubstance abuser, anxiety treated with outpt. medications, chronic pain, hypertension, history of diabetic foot infections, episodes of DKA, chronic wounds managed at the wound care clinic, chronic lower extremity pain described as sciatic per H/P.
[2017-10-20] MEDS: INSULIN GLARGINE 100 UNITS/ML UNIT SC SCH (21:10)
[2017-10-21] MEDS: ONDANSETRON DISINTEGRATING 4 MG TAB PO PRN ×3 (04:06→20:07)
[2017-10-21] MEDS: ACETAMINOPHEN 325 MG TAB PO PRN ×3 (04:06→18:07)
[2017-10-21] MEDS: hydrALAZINE 20 MG/ML VIAL IVP PRN ×3 (04:07→15:40)
[2017-10-21] MEDS ORDERED: ENOXAPARIN 40 MG/0.4 ML SYR SC SCH (09:00)
[2017-10-21] MEDS: INSULIN LISPRO 100 UNIT/ML SC SCH ×3 (09:49→20:03)
[2017-10-21] MEDS: LISINOPRIL 40 MG TAB PO SCH (09:49)
[2017-10-21] MEDS: INSULIN GLARGINE 100 UNITS/ML UNIT SC SCH ×2 (09:49→21:59)
[2017-10-21] MEDS: FERROUS SULFATE 325 MG TAB PO SCH (09:50)
[2017-10-21] MEDS: PANTOPRAZOLE SODIUM 40 MG TAB PO SCH ×2 (09:50→20:03)
--- NOTE | 2017-10-21 10:10 | ECHO ---
[email or web address] [address] [address] Main: [phone] Fax: Transthoracic Echocardiogram Name: VICK FENTON MR#: [id number] Study Date: 10/20/2017 Study Time: 04:43 PM Date of : 1985 Age: 32 year(s) Height: 182.9 cm (72 in.) Weight: 83.92 kg (185 lb.) BSA: 2.06 m2 Gender: Male Examination: Echo Indication: cp/abnl ecg Image Quality: Adequate Contrast: Requested by: Esther Solis BP: 192 mmHg/110 mmHg Heart Rate: Rhythm: Normal sinus rhythm Indication: cp/abnl ecg Procedure Staff Reservoir Caretaker: Rimma Rodriges [facility] Reading Physician: Gerry Flaherty MD Requesting Provider: Conclusions: Normal left ventricular size and systolic function. LVEF visually estimated at 65-70% and calculated at 60% by Lisa's. [id number] concentric left ventricular hypertrophy. No segmental wall motion abnormalities. Grade 1 diastolic dysfunction. Normal appearing valvular structures. Mild tricuspid regurgitation. Small pericardial effusion. No prior studies for comparison. Measurements: Chambers Valvular Assessment AV/MV Valvular Assessment TV/PV Normal Normal Normal Name Value Range Name Value Range Name Value Range Ao Jyothi (MM): 3.8 cm (2.2 cm-3.7 AV Vmax: 1.26 m/s (1 m/s-1.7 TR Vmax: 2.11 mm/s ( - ) cm) m/s) TR PGmax: 18 mmHg ( - ) IVSd (2D): 1.6 cm (0.6 cm-1.1 AV maxP mmHg ( - ) syst. PAP: 28 mmHg ( - ) cm) LVOT Vmax: 1.17 m/s (0.7 m/s-1.1 PV Vmax: 1.31 m/s (0.6 m/s-0.9 LVDd (2D): 4.5 cm (4.2 cm-5.9 m/s) m/s) cm) MV E Vmax: 0.71 m/s ( - ) PV PGmax: 7 mmHg ( - ) LVDs (2D): 3.2 cm (2.1 cm-4 MV A Vmax: 1.08 m/s ( - ) cm) MV E/A: 0.66 ( - ) LVPWd (2D): 1.5 cm (0.6 cm-1 cm) LVEF (BP): 60 % (>=55 %) RVDd(2D): 3.6 cm (1.9 cm-3.8 cmmm) Continued Measurements: Chambers Valvular Assessment AV/MV Valvular Assessment TV/PV Name Value Name Value Name Value LADs: 3.9 cm MV E' Septal: 0.07 m/s CVP (est.): 10 mmHg LADs Lon.4 cm MV E/E' Septal: 10.30 LA Area: 21.3 cm2 MV E/E' Lateral: 12.30 Patient: VICK FENTON Study Date: 10/20/2017 Page 1 of 2 04:43 PM LA Volume: 64 ml LA Volume Index: 31.1 ml/m2 Additional Vessels Name Value Ao Ascendin.3 cm Findings: Left Ventricle: Normal size left ventricle. Moderate to Severe concentric LV hypertrophy. Normal global systolic LV function. EF is 60 %. No regional wall motion abnormality. Grade 1 diastolic dysfunction (abnormal relaxation). Elevated left ventricular filling pressures.. Right Ventricle: Normal size right ventricle. Normal RV function. Left Atrium: The left atrium is normal in size. Right Atrium: The right atrium is normal in size. Mitral Valve: The mitral valve is normal in appearance and function. There is no mitral valve regurgitation. No mitral stenosis is present. Aortic Valve: The aortic valve is tri-leaflet and functions normally. There is no aortic valve regurgitation. No aortic valve stenosis is present. Tricuspid Valve: The tricuspid valve is normal in appearance and function. Mild tricuspid regurgitation is present. The pulmonary artery pressure is normal. Pulmonic Valve: The pulmonic valve is normal in appearance and function. Trivial to mild pulmonic valve regurgitation. Aorta: Normal size aortic root measuring 3.8 cm. Normal size ascending aorta measuring 3.3 cm. IVC: The IVC is dilated. Pericardium: Trivial pericardial effusion. (No Signature Object) Patient: VICK FENTON Study Date: 10/20/2017 Page 2 of 2 04:43 PM [id number]
[2017-10-21] MEDS ORDERED: LACTULOSE 20 GM/30 ML UDCUP PO PRN (11:30)
[2017-10-21] MEDS ORDERED: POLYETHYLENE GLYCOL 3350 17 GM PKT PO PRN (11:30)
[2017-10-21] MEDS ORDERED: MAGNESIUM HYDROXIDE 30 ML UDCUP PO PRN (11:30)
[2017-10-21] MEDS ORDERED: BISACODYL 10 MG SUPP PR PRN (11:30)
[2017-10-21] MEDS ORDERED: LORazepam 0.5 MG TAB PO PRN (11:33)
[2017-10-21] MEDS: traMADol 50 MG TAB PO PRN ×2 (11:36→18:06)
[2017-10-21] MEDS: KETOROLAC 15 MG/1 ML SDV IVP PRN ×2 (12:08→18:06)
[2017-10-21] MEDS: SENNOSIDES/DOCUSATE SODIUM TAB PO SCH ×2 (13:14→20:03)
[2017-10-21] MEDS: NS 1,000 ML IV SCH (15:38)
[2017-10-21 17:31] LABS: CREATINE KINASE 395 IU/L (0-224)
--- NOTE | 2017-10-21 17:36 | ASMTCMCOM ---
CM Note CM Note Notes: Pt has [place] [facility]; spoke w/Andie at [facility] who said pt did not need to transfer since inpt hospital stays fall under [place] Medicaid and [facility] covers his PCP out pt care. Discussed w/Dr Osuna who requested we obtain records from [facility] as pt has been worked up there for chronic pain. Fax sent to [facility] by W requesting med records but we will likely not receive these until Monday. Date Signed: 10/21/2017 05:35 PM Electronically Signed By:Jana Rocha RN
--- NOTE | 2017-10-21 18:07 | HOSPPROG ---
Hospitalist Progress Note Assessment/Plan: Assessment: 32-year-old male presents with acute chest pain and headache in the setting of polysubstance abuse, acute severe hypercalcemia Plan: 1. Acute chest pain. New problem this provider, further workup indicated. Potential etiologies include coronary vasospasms, esophageal reflux, chronic pain syndrome, benzodiazepine withdrawal. This is a very complicated patient as he has an extensive history of esophageal reflux which is likely contributing factor, but he also ingested cocaine which could result in vasospasm and his significantly abnormal EKG findings, which include T-wave inversions in lead V2 to V6, personally interpreted -discussed with Esther Solis, cardiology provider, she reports that the patient is getting an echocardiogram and if it is abnormal then further cardiac evaluation will be conducted -continue monitor on telemetry -continue to track troponin levels 2. Acute headache. Most likely secondary to a combination of cocaine ingestion as well as hypertensive crisis, treat hypertension and gauge effect 3. Hypertensive crisis. Unclear whether the patient has overt hypertensive emergency, as his systolic blood pressure has been consistently elevated between 170 and 200, in the setting of symptoms including headache and chest pain, which could be reasonable sequelae of substantially elevated systolic and diastolic level -if headache worsening, get head CT -provide the patient with supportive care including IV hydralazine until the cocaine is able to wear out of the patient's system -if the patient does begin demonstrating evidence of end-organ failure, then would recommend the patient be placed on a nitroglycerin drip and transferred to the step-down unit -at the current time, we will continue his home amlodipine 10 mg daily, discontinue his HAFSA-inhibitor given that he has significant electrolyte abnormalities, and initiate clonidine 0.1 mg twice daily -will also attempt to obtain outpatient clinic notes from [facility] today, as the patient describes a 6 month history of refractory hypertension requiring up to 5 medications at 1 time 4. Hypercalcemia. Acute, severe, most likely secondary to over use of Tums, the patient endorses that he takes anywhere between 10 and 30 times daily for gastroesophageal reflux, and his low PTH level, low vitamin D, correspond to this etiology -his calcium level is currently corrected to at least 13.5, he does require IV fluids and then subsequent diuretics in order to manage this -will initiate normal saline at 150/hr, and then initiate IV Lasix tomorrow depending on blood pressure and electrolytes -will monitor calcium and albumin levels daily 5. Hyponatremia. Acute, unclear whether this is secondary to pure intravascular depletion, as mentioned above the patient is hypertensive, but he may be experiencing some vasospasm in the setting of cocaine ingestion -urine sodium level is low with low urine Osmo, would favor initiating IV normal saline today engaging affect 6. Metabolic alkalosis. Potentially contraction alkalosis, but as mentioned above the patient's volume status is very challenging to assess, and will provide normal saline and gauge effect 7. Diabetes mellitus with hyperglycemia. Uncontrolled, glucose 315 this morning , most likely secondary to poor outpatient management as well as acute stressors outlined above -patient is not currently in DKA, continue to monitor glucose levels with insulin sliding scale 8. Chronic pain and anxiety with continuous benzodiazepine dependency. Patient has been initiated on and up titrated on Klonopin as an outpatient, and given the patient's polysubstance abuse, I believe that he is at risk for abuse and addiction potential and we will not further escalate his dosages -that being said, is also entirely possible the patient may have abused his Klonopin prescription and is now experiencing an element of benzodiazepine withdrawal, and we will consequently initiate the home dosage he provides a so as to prevent any further withdrawal escalation -we have ordered outside records from [facility] to determine the exact nature of the patient's pain, as he reports he has had MRIs performed of his lower extremities and back -will attempt to manage pain with non opiate methods including Toradol, Tylenol , Lidoderm patch, Ultram if needed 9. Possible pressure injuries. Present on admission, patient has abrasion under his chin, 1 on his left shoulder, will get wound care consultation Diet. Regular Prophylaxis. High risk patient, SCDs, hold pharm given hypertension Code. Full Disposition. Anticipated discharge uncertain this time, we reached out to [facility] and offered them repatriation of this patient, and they declined, and the patient meets all inpatient criteria as outlined above. Subjective: Patient reports ongoing pain in his leg, back, head Objective: Vital Signs Temp Pulse Resp BP Pulse Ox 36.9 C 84 18 143/80 H 96 10/21/17 15:23 10/21/17 15:23 10/21/17 15:23 10/21/17 16:29 10/21/17 15:23 Microbiology 10/21/17 11:00 Respiratory Panel (PCR) - Final Nasal, Sinus - Swab No Organism Detected Laboratory Results 10/21/17 03:44 10/21/17 12:46 10/20/17 10/21/17 10/22/17 05:59 05:59 05:59 Intake Total 3800 1225 Output Total 1600 1300 Balance 2200 -75 - Physical Exam Constitutional: no apparent distress, chronically ill appearing, uncomfortable, unkempt, No not in pain Cardiovascular: tachycardia, No systolic murmur, No irregularly irregular, No edema Respiratory: no respiratory distress, no rales or rhonchi, clear to auscultation Gastrointestinal: normoactive bowel sounds, soft, non-tender abdomen, no palpable masses, No distension Skin: other (Abrasion under his chin comma abrasion on his back, very minimal surrounding erythema, no pustulant exudate) Musculoskeletal: other (No left knee joint effusion, passive range of motion without pain, no tenderness over the left knee or fluctuance) Neurologic: AAOx3, sensation intact bilaterally, No weakness Psychiatric: not encephalopathic, thought process linear, anxious, No agitated ICD10 Worksheet Patient Problems: Problems Problem Status Onset DKA, type 1 Acute Hyperglycemia due to type 1 diabetes mellitus Acute Influenza A Acute DKA (diabetic ketoacidoses) Acute Pharyngitis Acute Vomiting Acute Dehydration Acute Abdominal pain Acute DKA (diabetic ketoacidoses) Acute Cellulitis Acute Vomiting Acute Diabetes Acute Anasarca Acute Insulin dependent diabetes mellitus Acute Chest pain Acute Multiple open wounds Acute Weakness Acute Chronic pain Acute Substance abuse Acute
[2017-10-21] MEDS ORDERED: ALTEPLASE 2 MG VIAL IVP PRN (18:41)
[2017-10-21] MEDS: FAMOTIDINE 20 MG TAB PO SCH (20:03)
[2017-10-21] MEDS: clonazePAM 0.5 MG TAB PO SCH (20:03)
[2017-10-22] MEDS: NS 1,000 ML IV SCH (01:53)
[2017-10-22] MEDS: hydrALAZINE 20 MG/ML VIAL IVP PRN ×2 (06:03→23:05)
[2017-10-22] MEDS: traMADol 50 MG TAB PO PRN (06:08)
[2017-10-22 06:43] LABS: PLATELET COUNT 303 10^3/uL (150-400)
[2017-10-22 06:52] LABS: CREATINE KINASE 180 IU/L (0-224)
--- NOTE | 2017-10-22 09:44 | CPEKG ---
Heart Rate: 96 RR Interval: 625 P-R Interval: 160 QRSD Interval: 110 QT Interval: 364 QTC Interval: 460 P [place]: 74 QRS [place]: 43 T Wave [place]: 48 EKG Severity - ABNORMAL ECG - EKG Impression: SINUS RHYTHM EKG Impression: PROBABLE LEFT ATRIAL ABNORMALITY Electronically Signed By: Tj Bell 22-Oct-2017 12:08:50
[2017-10-22] MEDS: LIDOCAINE 4%/MENTHOL 1% PATCH TD SCH (10:05)
[2017-10-22] MEDS: INSULIN GLARGINE 100 UNITS/ML UNIT SC SCH ×2 (10:07→20:42)
[2017-10-22] MEDS: SENNOSIDES/DOCUSATE SODIUM TAB PO SCH ×2 (10:08→20:39)
[2017-10-22] MEDS: clonazePAM 0.5 MG TAB PO SCH ×2 (10:09→20:39)
[2017-10-22] MEDS: FAMOTIDINE 20 MG TAB PO SCH ×2 (10:09→20:39)
[2017-10-22] MEDS: FERROUS SULFATE 325 MG TAB PO SCH (10:10)
[2017-10-22] MEDS: PANTOPRAZOLE SODIUM 40 MG TAB PO SCH ×2 (10:10→20:39)
[2017-10-22] MEDS: INSULIN LISPRO 100 UNIT/ML SC SCH ×3 (10:20→18:17)
[2017-10-22] MEDS: FUROSEMIDE 40 MG/4 ML VIAL IVP SCH ×2 (10:22→14:47)
[2017-10-22] MEDS ORDERED: NS 1,000 ML IV SCH (16:45)
[2017-10-22] MEDS ORDERED: MAGNESIUM CITRATE 300 ML BOTTLE PO ONE (16:45)
--- NOTE | 2017-10-22 16:55 | HOSPPROG ---
Hospitalist Progress Note Assessment/Plan: Assessment: 32-year-old male presents with acute chest pain and headache in the setting of polysubstance abuse, acute severe hypercalcemia Plan: 1. Acute chest pain. Likely 2/2 cocaine use and possible transient vasospasm w/ abnormal EKG, no significant abnl on Echo, and EKG abnormalities resolved 24hs later - resolved 2. Acute headache. Most likely secondary to a combination of cocaine ingestion as well as hypertensive crisis, treat hypertension and gauge effect 3. Hypertensive crisis. Improving w/ addition of clonidine, uptitrate to 0.2mg bid, cont norvasc 10mg daily 4. Hypercalcemia. Acute, severe, most likely secondary to over use of Tums, the patient endorses that he takes anywhere between 10 and 30 times daily for gastroesophageal reflux, and his low PTH level, low vitamin D, correspond to this etiology - his calcium level is currently corrected to 13.1 s/p IVF - requiring ongoing tx w/ IVF and diuretics for clearance, cont NS at 150/hr + lasix 40mg IV bid, repeat Ca level in AM - check PTHrP - if not correcting, will consult w/ renal in AM and get uCa - it is possible that some of his sx (pains, constipation) may be 2/2 this issue and patient is optimistic that these may improve if Ca tx successful 5. Hyponatremia. Acute, unclear whether this is secondary to pure intravascular depletion, fluctuating, monitor in setting of fluids + diuretics 6. Metabolic alkalosis. Potentially contraction alkalosis, but as mentioned above the patient's volume status is very challenging to assess, and will provide normal saline and gauge effect 7. Diabetes mellitus with hyperglycemia. Uncontrolled, checking A1c 8. Chronic pain and anxiety with continuous benzodiazepine dependency. Cont home dose of klonipin to avoid withdraw - ordering outside records (MRIs) from [facility] - avoid toradol given HTN, start lidoderm patch, cont tylenol + ultram PRN 9. Possible pressure injuries. Present on admission, patient has abrasion under his chin, one on his left shoulder, will get wound care consultation 10. Constipation. Add mag citrate 11. NSVT. Acute, new problem, further w/u indicated. Present on tele at 8:37 AM (7 beat, monomorphic, personally interpreted), then back into sinus mechanism w / PVCs - CXR to eval PICC placement - K optimized, monitor K/Mg - may be hyperexcitability in setting of hypercalcemia + recent cocaine ingestion, unsafe to DC Diet. Regular Prophylaxis. High risk patient, SCDs, hold pharm given hypertension Code. Full Disposition. Anticipated discharge uncertain this time, we reached out to [facility] and offered them repatriation of this patient, and they declined, and the patient meets all inpatient criteria as outlined above. Subjective: reports ongoing LLE pain/L back pain, no BM Objective: Vital Signs Temp Pulse Resp BP Pulse Ox 36.7 C 94 13 153/106 H 94 10/22/17 15:53 10/22/17 15:53 10/22/17 15:53 10/22/17 15:53 10/22/17 15:53 Microbiology 10/21/17 11:00 Respiratory Panel (PCR) - Final Nasal, Sinus - Swab No Organism Detected Laboratory Results 10/22/17 06:05 10/22/17 14:45 10/21/17 10/22/17 10/23/17 05:59 05:59 05:59 Intake Total 3800 3110 150 Output Total 1600 2150 1550 Balance 2200 960 -1400 - Physical Exam Constitutional: no apparent distress, chronically ill appearing, uncomfortable, No not in pain (moderate) Cardiovascular: regular rate and rhythym, no murmur, rub, or gallop, edema ( trace bilat LE) Respiratory: no respiratory distress, no rales or rhonchi, clear to auscultation Gastrointestinal: normoactive bowel sounds, soft, non-tender abdomen, no palpable masses, distension (mild) Skin: other (abrasion under chin, L shoulder) Musculoskeletal: other (no tenderness over L paraspinal muscles) Neurologic: AAOx3 Psychiatric: not anxious, not encephalopathic, flat affect, No agitated ICD10 Worksheet Patient Problems: Problems Problem Status Onset DKA, type 1 Acute Hyperglycemia due to type 1 diabetes mellitus Acute Influenza A Acute DKA (diabetic ketoacidoses) Acute Pharyngitis Acute Vomiting Acute Dehydration Acute Abdominal pain Acute DKA (diabetic ketoacidoses) Acute Cellulitis Acute Vomiting Acute Diabetes Acute Anasarca Acute Insulin dependent diabetes mellitus Acute Chest pain Acute Multiple open wounds Acute Weakness Acute Chronic pain Acute Substance abuse Acute
[2017-10-22] MEDS: PATCH REMOVAL 1 EA PATCH TD SCH (20:45)
[2017-10-23] MEDS: traMADol 50 MG TAB PO PRN ×3 (00:12→15:42)
[2017-10-23] MEDS: ONDANSETRON DISINTEGRATING 4 MG TAB PO PRN (04:48)
[2017-10-23 05:04] LABS: PLATELET COUNT 314 10^3/uL (150-400)
[2017-10-23] MEDS: clonazePAM 0.5 MG TAB PO SCH ×2 (08:41→21:25)
[2017-10-23] MEDS: FAMOTIDINE 20 MG TAB PO SCH ×2 (08:41→21:25)
[2017-10-23] MEDS: SENNOSIDES/DOCUSATE SODIUM TAB PO SCH ×2 (08:41→21:25)
[2017-10-23] MEDS: FERROUS SULFATE 325 MG TAB PO SCH (08:42)
[2017-10-23] MEDS: PANTOPRAZOLE SODIUM 40 MG TAB PO SCH ×2 (08:42→21:25)
[2017-10-23] MEDS: LIDOCAINE 4%/MENTHOL 1% PATCH TD SCH (08:42)
[2017-10-23] MEDS: ACETAMINOPHEN 325 MG TAB PO PRN (08:54)
[2017-10-23] MEDS: INSULIN LISPRO 100 UNIT/ML SC SCH ×3 (08:54→19:03)
[2017-10-23] MEDS: INSULIN GLARGINE 100 UNITS/ML UNIT SC SCH ×2 (10:28→21:25)
[2017-10-23] MEDS: FUROSEMIDE 40 MG/4 ML VIAL IVP SCH ×2 (10:28→14:31)
[2017-10-23] MEDS: hydrALAZINE 20 MG/ML VIAL IVP PRN (10:47)
[2017-10-23] MEDS: NS 1,000 ML IV SCH ×3 (11:48→21:32)
[2017-10-23] MEDS ORDERED: METOCLOPRAMIDE 10 MG/2 ML VIAL IVP PRN (14:59)
[2017-10-23] MEDS ORDERED: METOCLOPRAMIDE 10 MG TAB PO PRN (14:59)
[2017-10-23] MEDS ORDERED: PEG 3350/NA SULF,BICARB,CL/KCL (GAVILYTE-G) 4000 ML BTL PO ONE (15:00)
--- NOTE | 2017-10-23 15:04 | HOSPPROG ---
Hospitalist Progress Note Assessment/Plan: Assessment: 32-year-old male presents with acute chest pain and headache in the setting of polysubstance abuse, acute severe hypercalcemia Plan: 1. Acute chest pain. Likely 2/2 cocaine use and possible transient vasospasm w/ abnormal EKG, no significant abnl on Echo, and EKG abnormalities resolved 24hs later - resolved 2. Acute headache. Most likely secondary to a combination of cocaine ingestion as well as hypertensive crisis, treat hypertension and gauge effect 3. Hypertensive crisis. Improving w/ addition of clonidine, uptitrated to 0.2mg bid, cont norvasc 10mg daily - add doxazosin HS 4. Hypercalcemia. Acute, severe, most likely secondary to over use of Tums, the patient endorses that he takes anywhere between 10 and 30 times daily for gastroesophageal reflux, and his low PTH level, low vitamin D, correspond to this etiology - his calcium level is currently corrected to 12.1 s/p IVF/lasix - requiring ongoing tx w/ IVF and diuretics for clearance, cont NS at 200/hr + lasix 40mg IV bid, repeat Ca level in AM - checking PTHrP - if not correcting, will consult w/ renal in AM and get uCa - it is possible that some of his sx (pains, constipation) may be 2/2 this issue and patient is optimistic that these may improve if Ca tx successful 5. Hyponatremia. Acute, unclear whether this is secondary to pure intravascular depletion, fluctuating, monitor in setting of fluids + diuretics 6. Metabolic alkalosis. Potentially contraction alkalosis, but as mentioned above the patient's volume status is very challenging to assess, and will provide normal saline and gauge effect 7. Diabetes mellitus with hyperglycemia. Uncontrolled, checking A1c - counseled patient regarding dietary intake today, offered dietary counseling and guidance w/ ADA diet, patient considered leaving AMA if we did not adjust back to regular diet 8. Chronic pain and anxiety with continuous benzodiazepine dependency. Cont home dose of klonipin to avoid withdraw - ordering outside records (MRIs) from [facility] - avoid toradol given HTN, started lidoderm patch, cont tylenol + ultram PRN 9. Possible pressure injuries. Present on admission, patient has abrasion under his chin, one on his left shoulder, will get wound care consultation 10. Constipation. Pervasive and unrelieved by mag citrate, patient vomiting up PO Rx today (including ultram) - use reglan PRN nausea - start go lytely PO 11. NSVT. Present on tele at 8:37 AM 10/22/17 (7 beat, monomorphic, personally interpreted), then back into sinus mechanism w/ PVCs - CXR to eval PICC placement - K optimized, monitor K/Mg Diet. Regular Prophylaxis. High risk patient, SCDs, hold pharm given hypertension Code. Full Disposition. Anticipated discharge uncertain this time, we reached out to [facility] and offered them repatriation of this patient, and they declined, and the patient meets all inpatient criteria as outlined above. Subjective: patient hungry, left LLE pain Objective: Vital Signs Temp Pulse Resp BP Pulse Ox 36.2 C 105 H 16 167/112 H 94 10/23/17 11:16 10/23/17 11:16 10/23/17 11:16 10/23/17 11:16 10/23/17 11:16 Laboratory Results 10/23/17 04:40 10/23/17 04:40 10/22/17 10/23/17 10/24/17 05:59 05:59 05:59 Intake Total 3110 1350 Output Total 2150 1850 Balance 960 -500 - Time Spent With Patient Time Spent with Patient: greater than 35 minutes Time Spent with Patient: Greater than 35 minutes spent on this patients care, greater than 50% of time spent counseling, educating, and coordinating care regarding the above mentioned plan. - Physical Exam Constitutional: no apparent distress, chronically ill appearing, uncomfortable, No not in pain (mild) Cardiovascular: no murmur, rub, or gallop, tachycardia, edema (trace bilat LE), No systolic murmur Respiratory: no respiratory distress, no rales or rhonchi, clear to auscultation Gastrointestinal: normoactive bowel sounds, distension (moderate), No tenderness , No guarding Skin: other (abrasion scattered) Musculoskeletal: other (able to fully extend LLE w/ minimal pain, tenderness on knee but no effusion, no paraspinal tenderness) Neurologic: AAOx3, sensation intact bilaterally Psychiatric: not anxious, not encephalopathic, flat affect, No agitated ICD10 Worksheet Patient Problems: Problems Problem Status Onset DKA, type 1 Acute Hyperglycemia due to type 1 diabetes mellitus Acute Influenza A Acute DKA (diabetic ketoacidoses) Acute Pharyngitis Acute Vomiting Acute Dehydration Acute Abdominal pain Acute DKA (diabetic ketoacidoses) Acute Cellulitis Acute Vomiting Acute Diabetes Acute Anasarca Acute Insulin dependent diabetes mellitus Acute Chest pain Acute Multiple open wounds Acute Weakness Acute Chronic pain Acute Substance abuse Acute
--- NOTE | 2017-10-23 15:33 | ASMTCAGE ---
CAGE Do you feel you ought to Answers: No cut down on your drinking or drug use? Do people annoy you by Answers: No criticizing your drinking or drug use? Do you feel guilty about Answers: Yes your drinking or drug use? Do you drink or use drugs Answers: No first thing in the morning (Eye Competency Evaluated Nurse Aide)? 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 Was sober 1 month prior to using 1/2 gram of cocaine prior to admission. Pt requested resources. Referred to Hi Almazan [facility] coordinator. Date Signed: 10/23/2017 03:32 PM Electronically Signed By:Luisa Gotti RN
--- NOTE | 2017-10-23 15:42 | ASMTCMCOM ---
CM Note CM Note Notes: 10/23/2017 Case Management Note Discussed pt during rounds today. Met w/pt this afternoon for CAGE assessment. Pt requested resources for cessation of cocaine. Referred to Evon Almazan [facility] [place] liason. She can be reached at [phone]. Evon to meet w/pt Monday to discuss options for drug use cessation as well as connecting to diabetes resources in the community. Contacted [facility] at [phone]. [facility] to fax med records, MRI notes and Insulin dosing. Pt lives with a room mate. Mom lives around the corner from pt. Pt does not identify any further case management d/c needs. Case Management d/c poc: home independent with support from [facility] for community resources. Case Management to follow. Date Signed: 10/23/2017 03:42 PM Electronically Signed By:Luisa Gotti RN
[2017-10-24] MEDS: PATCH REMOVAL 1 EA PATCH TD SCH ×2 (02:09→20:24)
[2017-10-24 06:42] LABS: PLATELET COUNT 201 10^3/uL (150-400)
[2017-10-24] MEDS: INSULIN LISPRO 100 UNIT/ML SC SCH ×3 (07:57→18:01)
[2017-10-24] MEDS: PANTOPRAZOLE SODIUM 40 MG TAB PO SCH ×2 (07:58→20:13)
[2017-10-24] MEDS: traMADol 50 MG TAB PO PRN ×2 (07:58→14:17)
[2017-10-24] MEDS: clonazePAM 0.5 MG TAB PO SCH ×2 (07:59→20:13)
[2017-10-24] MEDS: LIDOCAINE 4%/MENTHOL 1% PATCH TD SCH (08:00)
[2017-10-24] MEDS: FAMOTIDINE 20 MG TAB PO SCH ×2 (08:00→20:14)
[2017-10-24] MEDS: FUROSEMIDE 40 MG/4 ML VIAL IVP SCH (08:00)
[2017-10-24] MEDS: FERROUS SULFATE 325 MG TAB PO SCH (08:00)
[2017-10-24] MEDS: INSULIN GLARGINE 100 UNITS/ML UNIT SC SCH ×2 (08:00→20:24)
[2017-10-24] MEDS: SENNOSIDES/DOCUSATE SODIUM TAB PO SCH ×2 (08:00→20:12)
[2017-10-24] MEDS: FUROSEMIDE 40 MG TAB PO SCH (09:12)
[2017-10-24] MEDS: ACETAMINOPHEN 325 MG TAB PO PRN (11:26)
[2017-10-24] MEDS: busPIRone 10 MG TAB PO SCH ×2 (12:15→20:13)
[2017-10-24] MEDS: LISINOPRIL 40 MG TAB PO SCH (12:55)
[2017-10-24] MEDS ORDERED: VANCOMYCIN HCL/NORMAL SALINE 250 ML IV SCH (14:00)
[2017-10-24] MEDS: VANCOMYCIN 1.25 GM in NS 250 ML IV SCH (14:14)
--- NOTE | 2017-10-24 14:41 | GOP ---
[f rep st] OPERATIVE REPORT DATE OF OPERATION: 10/24/2017 SURGEON: Rio Cornell MD LINE CONSTRUCTION SUPERINTENDENT: None. ANESTHESIA: 0.25% Marcaine. PREOPERATIVE DIAGNOSIS: Left ear abscess. POSTOPERATIVE DIAGNOSIS: Left ear abscess. PROCEDURE PERFORMED: Incision and drainage of left ear abscess. FINDINGS: 2 cc purulent material evacuated from the left ear. Cultures taken, area packed after was hout. SPECIMENS: Cultures of fluid taken. ESTIMATED BLOOD LOSS: 5 cc. DESCRIPTION OF PROCEDURE: The patient was greeted in his room. After explaining the risks, benefits , and alternatives, consent was signed. World Health Organization time-out was performed. The left ear was then prepped and draped in typical sterile fashion. I anesthetized the area using 0.25% Marquise negar. After successful anesthesia, the area was successfully lanced for a distance of approximately 1.5 cm. Just deep to this, purulent fluid was encountered. Cultures of this were taken. The area w as copiously irrigated with sterile saline. After irrigation, the area was then held with gauze for hemostasis and then covered with a sterile dressing. Patient tolerated the procedure well without an y complications. DRAINS: None. /[id number]/MODL
--- NOTE | 2017-10-24 14:45 | ASMTCMCOM ---
CM Note CM Note Notes: Pts case reviewed in tx rounds. CM met w/ pt for dispo planning. Pt reports that he wants to stop his cocaine use. CM provided pt resources and emotional support. Pt reports that his PCP doctor is a big support in his life. CM and pt discussed setting short term goals. Evon from [facility] will be setting pt up w/ a behavioral health specialist. CM spoke w/ Zully from [facility] and provided updates. Pt about getting sober. CM available for changes. Plan: Independent Date Signed: 10/24/2017 02:44 PM Electronically Signed By:ИРИНА Meeks
--- NOTE | 2017-10-24 14:52 | HOSPPROG ---
Hospitalist Progress Note Assessment/Plan: Assessment: 32-year-old male presents with acute chest pain and headache in the setting of polysubstance abuse, acute severe hypercalcemia c/b acute abscess Plan: 1. Acute chest pain. Likely 2/2 cocaine use and possible transient vasospasm w/ abnormal EKG, no significant abnl on Echo, and EKG abnormalities resolved 24hs later - resolved 2. Acute headache. Most likely secondary to a combination of cocaine ingestion as well as hypertensive crisis, treat hypertension and gauge effect 3. Hypertensive crisis. Improving w/ addition of clonidine, uptitrated to 0.2mg bid, cont norvasc 10mg daily - reviewed outside clinic note by Dr. Geo Mccracken, he reports that patient has been on lisinopril, fluctuating use of norvasc, recent addition of metoprolol, and intermittent use of hydralazine - I think that metoprolol is a risky choice for patient given likelihood of ongoing cocaine use - now that electrolytes stabilized, will resume lisinopril 40mg daily, cont clonidine 0.2 bid, cont norvasc 10 daily, gauge effect 4. Hypercalcemia. Acute, severe, most likely secondary to over use of Tums, the patient endorses that he takes anywhere between 10 and 30 times daily for gastroesophageal reflux, and his low PTH level, low vitamin D, correspond to this etiology - his calcium level is currently corrected to 10.5 s/p IVF and diuretics - stop IVF and resume home lasix dosing 5. Hyponatremia. Acute, unclear whether this is secondary to pure intravascular depletion 6. Metabolic alkalosis. Potentially contraction alkalosis, but as mentioned above the patient's volume status is very challenging to assess, and will provide normal saline and gauge effect 7. Diabetes mellitus type 1 with hyperglycemia, nephrotic syndrome, and neuropathy. Uncontrolled, 2 A1c 13.2% - started on lyrica - cont on lantus/ISS, recommend outpt Endo for insulin pump teaching 8. Chronic pain and anxiety with continuous benzodiazepine dependency. Cont home dose of klonipin to avoid withdraw - outside records indicate he has been on 0.5mg HS klonipin, but I believe patient has been over-using as 1mg bid - MRI w/ L5-S1 disc bulge but no other pathology, recommend PT, heat/ice, and neuropathic agent 9. Possible pressure injuries. Present on admission, patient has abrasion under his chin, one on his left shoulder, ongoing wound care 10. Constipation. Relieved by golytely 11. NSVT. Present on tele at 8:37 AM 10/22/17 (7 beat, monomorphic, personally interpreted), then back into sinus mechanism w/ PVCs - K optimized, monitor K/Mg 12. Outer ear abscess. Acute, new problem, further w/u indicated. L outer ear, likely 2/2 pressure from sleeping as well as pre-disposition to skin infxn w/ uncontrolled DM1 - d/w Dr. Cornell, he reports pustulant material released on I&D w/ wound cx sent - repeat CBC in AM - start on Abx (IV Vanco given risk of MRSA, and hx of use of MRSA coverage for recurrent skin wounds noted in his outpatient wound care records from [facility]) - monitor for additional 24hrs to ensure improvement, given high risk of worsening infxn in DM1 patient Diet. Regular Prophylaxis. High risk patient, SCDs, hold pharm given hypertension Code. Full Disposition. Anticipated discharge 10/25 if infxn improving Subjective: severe L ear pain w/ redness, had BM Objective: Vital Signs Temp Pulse Resp BP Pulse Ox 36.0 C 85 18 156/111 H 95 10/24/17 11:34 10/24/17 11:34 10/24/17 11:34 10/24/17 11:34 10/24/17 11:34 Laboratory Results 10/24/17 06:30 10/24/17 06:30 10/23/17 10/24/17 10/25/17 05:59 05:59 05:59 Intake Total 1350 3960 1150 Output Total 1850 900 900 Balance -500 3060 250 - Pending Discharge Pending Discharge Within 24 Hours: Yes Pending Discharge Date: 10/25/17 Pending Discharge Time: 11:00 - Physical Exam Constitutional: chronically ill appearing, uncomfortable, No no apparent distress (moderate), No not in pain (moderate) Ears, Nose, Mouth, Throat: other (L ear w/o obstruction, has outer ear tenderness/fluctance, nothing draining from inner ear and hearing intact) Cardiovascular: regular rate and rhythym, no murmur, rub, or gallop, edema ( trace bilat LE) Respiratory: no respiratory distress, no rales or rhonchi, clear to auscultation Gastrointestinal: normoactive bowel sounds, soft, non-tender abdomen, no palpable masses Skin: abrasion, erythema, induration, fluctuance Neurologic: AAOx3 Psychiatric: not encephalopathic, anxious, flat affect, agitated ICD10 Worksheet Patient Problems: Problems Problem Status Onset DKA, type 1 Acute Hyperglycemia due to type 1 diabetes mellitus Acute Influenza A Acute DKA (diabetic ketoacidoses) Acute Pharyngitis Acute Vomiting Acute Dehydration Acute Abdominal pain Acute DKA (diabetic ketoacidoses) Acute Cellulitis Acute Vomiting Acute Diabetes Acute Anasarca Acute Insulin dependent diabetes mellitus Acute Chest pain Acute Multiple open wounds Acute Weakness Acute Chronic pain Acute Substance abuse Acute
[2017-10-24] MEDS: PREGABALIN 50 MG CAP PO SCH ×2 (16:56→20:13)
--- NOTE | 2017-10-24 18:52 | GCON ---
[f rep st] CONSULTATION DATE OF CONSULTATION: 10/24/2017 CHIEF COMPLAINT: Left ear pain. HISTORY OF PRESENT ILLNESS: This is a 32-year-old male with multiple medical problems, admitted to [facility] medical service now since the of this month. At that point in time, he presented to the [facility] complaining of chest discomfort, palpitations, weakness, bilateral lower extremity p ain, and an overall terrible feeling. He was, subsequently, admitted for the above and has been prog ressing on all fronts. However, last evening, the patient stated that he more than likely rubbed his left ear wrong and woke up this morning complaining of significant pain in the left ear. Per him, margareth rodriguez has had cysts on both ears in the past, and with his underlying [id number] diabetes, he is pro ne to infection of them in the past, typically requires drainage of these. Otherwise, they get secon darily infected and the infection typically causes significant problems with his blood sugar manageme nt. On my evaluation of the patient, he complains of left ear pain. Denies having any fevers or chills, and states that he otherwise feels well. He was just finishing ordering lunch on my arrival. Other than the left ear pain, he has no complaints at this point in time. PAST MEDICAL HISTORY: Diabetes, hypertension, polysubstance, history of diabetic foot infections, as well as other skin infection, history of multiple episodes of DKA, chronic wounds managed at the [facility], chronic lower extremity edema and pain, and anxiety. PAST SURGICAL HISTORY: Multiple I and D's of these cutaneous abscesses. FAMILY HISTORY: Noncontributory. SOCIAL HISTORY: Polysubstance abuse including cocaine, marijuana, morphine. He occasionally smokes cigarettes. Denies alcohol use. CURRENT MEDICATIONS: Reviewed in [employer]. REVIEW OF SYSTEMS: A full 10-point review was performed. PHYSICAL EXAM: VITAL SIGNS: Temperature 36 even, blood pressure 156/111, heart rate 85, and he is 9 5% on room air. CONSTITUTIONAL: He is in no apparent distress. He appears comfortable. HEENT: Ey es: His pupils are equal, round, and reactive to light and accommodation. He has anicteric sclerae. His extraocular movements are intact. Ears, nose, mouth, throat: Moist mucous membranes. He has some swelling of the left ear, as well as a cystic lesion on the superior portion of the left ear hel ix. Hearing otherwise appears normal. There is no drainage at this area. CARDIOVASCULAR: He is hy pertensive. He otherwise has a regular rate and rhythm. RESPIRATORY: No respiratory distress, rale s, or rhonchi. He is otherwise clear to auscultation. GI: Normoactive bowel sounds, soft, nondiste nded, nontender. SKIN: Warm. The lesion described above on the left ear. The right ear does show above multiple previous excisions and scars. MUSCULOSKELETAL: Full strength. No tenderness. No we akness. NEUROLOGIC: Alert and oriented x3. Cranial nerves 2-12 are intact. No weakness. No numbn ess. PSYCHIATRIC: He is interacting appropriately, does not appear anxious. LYMPH/HEME/IMMUNOLOGIC : No cervical or supraclavicular lymphadenopathy is appreciated. LABORATORY DATA: White blood cell count today is normal at 6.9, H and H are stable at 7 and 22. His platelets are 201. Chemistries are largely unremarkable. His glucose today is 185. IMAGING: None. ASSESSMENT/PLAN: A 32-year-old male, poorly controlled diabetic, with a left ear cyst. After talkin g with the patient, it appears as though the cysts usually require urgent drainages. They typically get secondarily infected and usually cause major issues with his blood sugar management. I discussed with him bedside incision and drainage and he is amenable to this. We will plan for lancing the cys t at the bedside today. /[id number]/MODL
[2017-10-25] MEDS: VANCOMYCIN 1.25 GM in NS 250 ML IV SCH (03:19)
[2017-10-25] MEDS: traMADol 50 MG TAB PO PRN (05:09)
[2017-10-25 06:03] LABS: PLATELET COUNT 290 10^3/uL (150-400)
[2017-10-25 07:40] VITALS: BP 178/117; PULSE 98; RESP 17; TEMP 98; O2SAT 96
[2017-10-25] MEDS: INSULIN GLARGINE 100 UNITS/ML UNIT SC SCH (08:22)
[2017-10-25] MEDS: INSULIN LISPRO 100 UNIT/ML SC SCH (08:22)
[2017-10-25] MEDS: LIDOCAINE 4%/MENTHOL 1% PATCH TD SCH (08:25)
[2017-10-25] MEDS: SENNOSIDES/DOCUSATE SODIUM TAB PO SCH (08:28)
[2017-10-25] MEDS: LISINOPRIL 40 MG TAB PO SCH (08:28)
[2017-10-25] MEDS: PANTOPRAZOLE SODIUM 40 MG TAB PO SCH (08:29)
[2017-10-25] MEDS: FAMOTIDINE 20 MG TAB PO SCH (08:29)
[2017-10-25] MEDS: busPIRone 10 MG TAB PO SCH (08:29)
[2017-10-25] MEDS: FUROSEMIDE 40 MG TAB PO SCH (08:30)
[2017-10-25] MEDS: PREGABALIN 50 MG CAP PO SCH (08:30)
[2017-10-25] MEDS: FERROUS SULFATE 325 MG TAB PO SCH (08:30)
[2017-10-25] MEDS: clonazePAM 0.5 MG TAB PO SCH (08:30)
[2017-10-25] MEDS ORDERED: FUROSEMIDE 40 MG/4 ML VIAL IVP ONE (09:47)
--- NOTE | 2017-10-25 18:06 | PDDCSUM ---
Discharge Summary Discharge Summary: DISCHARGE SUMMARY FOLLOW-UP ITEMS: Reassess left posterior auricular wound Repeat outpatient labs Reassess outpatient blood pressure management and weight control Follow-up wound culture from left ear DATE OF ADMISSION: 10/20/17 DATE OF DISCHARGE: 10/25/2017 DISCHARGE DIAGNOSES: 1. Acute severe hypercalcemia 2. Acute hypertensive crisis 3. Acute chest pain 4. Acute hyponatremia 5. Acute metabolic alkalosis 6. Acute headache 7. Diabetes mellitus type 1 with hyperglycemia, nephrotic syndrome, neuropathy, uncontrolled 8. Chronic pain and anxiety with continuous benzodiazepine dependency 9. Polysubstance abuse 10. Outer ear abscess 11. Nonsustained ventricular tachycardia 12. Acute constipation 13. Anemia of chronic inflammatory disease CONSULTATIONS: General surgery for incision and drainage of left ear PROCEDURES / IMAGING: Incision and drainage left ear 10/24/2017 PICC line insertion and removal Echocardiogram demonstrating preserved ejection fraction, no focal wall motion abnormalities CHIEF COMPLAINT: Acute chest pain and headache SUBJECTIVE: Patient is feeling well at time discharge, his ear pain has substantially improved PHYSICAL EXAM ON DISCHARGE: Systolic blood pressure is 160-180, heart rate 90-100, satting on room air, alert awake oriented x3, chronically ill-appearing, swelling and erythema along the posterior auricular aspect of the left ear is substantially improved, he continues to have superficial abrasions under his chin, over his left shoulder LABS ON DISCHARGE: Hemoglobin 7.8, white blood cell count 7000, serum sodium 134, creatinine 1.2, BUN 30, Gram stain currently demonstrating no organisms HOSPITAL COURSE BY PROBLEM: 1. Acute severe hypercalcemia. The patient presented with severe hypercalcemia and a corrected calcium level of greater than 14, most likely secondary to over use of Tums, as the patient sources that he takes anywhere between 10-30 of these tabs daily for gastroesophageal reflux. The patient was fully evaluated for other causes of his hypercalcemia and he was notably experiencing a low PTH level, low vitamin-D level, and had a negative PTH RP. He required aggressive IV fluids as well as concomitant diuretics, and his serum calcium levels cleared over the span of approximately 72 hr. After his calcium levels cleared , the patient no longer required IV fluids or aggressive IV diuretics and his calcium levels remained stable for 24 hr prior to discharge. I recommended to the patient that he not consume Tums and that he utilize famotidine as well as his home dosage of pantoprazole for gastroesophageal reflux disease. 2. Hypertensive crisis. The patient experienced an acute hypertensive crisis with symptomatic headache and chest pain in the setting of polysubstance use, including cocaine. The patient also has refractory hypertension and I reviewed the patient's outpatient clinic note most recently by his primary care provider Dr. Geo Cid. Although the patient has been on a combination of several agents, it is unclear whether the patient is clearly adhering to them, as it has been mention that the patient intermittently takes hydralazine when he feels poorly and he was recently initiated on metoprolol in the outpatient setting but with his ongoing risk of cocaine use, I am hesitant to continue a beta-alena. Given the patient's severe electrolyte abnormalities, his lisinopril was initially held, and the patient was continued on 10 mg of Norvasc , up titrated on clonidine to 0.2 mg twice daily, and eventually his lisinopril 40 mg was reintroduced and Lasix was up titrated to 40 mg twice daily. I recommended that the patient follow up closely with his primary care provider for further up titration or adjustments. 3. Polysubstance abuse. Reviewed the patient's outpatient records indicate that polysubstance abuse has been an ongoing issue for the patient, confounded by his underlying anxiety disorder as well as disruptive home life. Prior to presenting, the patient sources utilizing cocaine and liquid morphine, and the patient's cocaine use most likely contributed to his acute worsening of hypertension outlined above. Most likely also contributed to his acute chest pain and possible transient vasospasm with a markedly abnormal EKG. The patient did have an echocardiogram which demonstrated no focal wall motion abnormalities, and his EKG abnormalities did resolve 24 hr after presentation. Consequently, no additional cardiac risk stratification is indicated, and the patient was counseled for his polysubstance abuse fire mental health social worker during his hospitalization. 4. Chronic pain with continuous benzodiazepine dependency and anxiety disorder. The patient is very high risk for opiate and benzodiazepine abuse, and review of his outpatient records indicates that his primary care provider believes that the patient is taking Klonopin 0.5 mg at bedtime, but the patient reports that he is taking 1 mg twice daily. During his hospitalization, the patient did receive 1 mg twice daily, as it took several days to obtain his outpatient records. The patient requested Klonopin at time of discharge, and I did provide him with 0.5 mg times 10 tabs, so that the patient does not experience benzodiazepine withdrawal in the interim between now and when he sees his primary care provider. That being said, I recommend close drug monitoring and diversion for this patient moving forward through his primary care office. The patient is also surreptitiously using liquid morphine that he is likely obtaining illegally, and his primary care provider office should be aware of this as the patient continues to work with you for pain management. During his hospitalization, we avoided opiates for pain control, relying principally on Tylenol, Lidoderm patches, heat pads, and intermittent Ultram. I did review the patient's most recent back x-rays as well as MRIs, which demonstrated no significant spinal findings, with the exception of L5-S1 disc bulge, which may contribute to his left-sided radiculopathy, but may also be an incidental finding in a patient who otherwise likely has diabetic neuropathy and a chronic pain syndrome. 5. Diabetes mellitus type 1 with hyperglycemia, nephrotic syndrome, neuropathy, uncontrolled. His most recent hemoglobin A1c is 13.2%, and the patient has not been clearly adhering to his outpatient insulin regiment. He has also been engaging in high risk behavior like cocaine abuse which also raises his glucose level. The patient does not adhere to a diabetic diet in any way shape or form , and although we encouraged the patient to follow diabetic diet during this hospitalization and we offered him dietary counseling, the patient threatened to leave against medical advice if we did not liberalized his diet back to the regular fast food diet upon which he is primarily subsiding. It was incredible the amount of unhealthy food that the patient was able to consume during this hospitalization, and this will most likely hasten his overall morbidity and early mortality if he does not change his ways. We recommend intensive education and dietary counseling through the outpatient clinic. We did approach the patient about other more direct methods of insulin control, and the patient is open to an insulin pump, and he would like to have this arranged through outpatient endocrinology. Another area of improvement the patient does seem open to is pain control, and his neuropathy is likely exacerbated by his uncontrolled diabetes, so better management may result in better pain control. We initiated Lyrica as a non narcotic method of pain control for the patient. 6. Acute hyponatremia. Most likely secondary to intravascular depletion, resolved with management of the above. 7. Acute metabolic alkalosis. Most likely contraction alkalosis, resolved with treatment of above. 8. Periauricular abscess and cellulitis. Left ear, secondary to pressure from sleeping, required incision and drainage by surgery as well as IV antibiotics. The area was substantially improved after 24 hr of IV antibiotics and incision and drainage, and he will be discharged on Bactrim double strength twice daily for 7 days. He should have his creatinine level followed up at [facility] when he follows up. 9. Nonsustained ventricular tachycardia. This occurred on 10/22/2017, was 7 beats, monomorphic, and was self-resolved. Is most likely secondary to electrical conduction disarray in the setting of cocaine use. 10. Acute constipation. The patient did move his bowels with the addition of GoLYTELY. 11. Anemia of chronic inflammatory disease. The patient had a hemoglobin level between 7 and 9 during this hospitalization, most likely chronic in the setting of all the above, did not require transfusion, recommend outpatient hemoglobin monitoring. 12. Nephrotic syndrome. Chronic, per outpatient records, patient's Lasix was up titrated to 40 mg twice daily and his which should be followed as an outpatient. DISCHARGE MEDICATIONS: Please see official discharge medication reconciliation sheet in chart , Lasix increased to 40 mg twice daily, clonidine introduced at 0.2 mg twice daily, Bactrim double strength twice daily x7 days, famotidine 20 mg twice daily, Lyrica 50 mg twice daily. DISCHARGE INSTRUCTIONS: Please follow up with [facility] internal Medicine within 1 week and have labs redrawn. TIME SPENT: Greater than 30 minutes were spent on direct patient care, as well as discharge planning and preparation.
== END 2017-10-25 12:50 | disposition home or self-care (01) | DRG 305 ==
LOC: F2W 14:15 → OBSVTOIN 14:26
PROVIDERS: ADMIT Hospitalist; ATTEND Hospitalist
PROC: 02HV33Z Insertion of Infusion Device into Superior Vena Cava, Percutaneous Approach (ICD-10-PCS; 2017-10-21)
PROC: 0H93XZX Drainage of Left Ear Skin, External Approach, Diagnostic (ICD-10-PCS; principal; 2017-10-24)
DX: I16.9 Hypertensive crisis, unspecified (principal); T40.5X5A Adverse effect of cocaine, initial encounter; E83.52 Hypercalcemia; T47.1X5A Adverse effect of other antacids and anti-gastric-secretion drugs, initial encounter; E10.65 Type 1 diabetes mellitus with hyperglycemia; T38.3X6A Underdosing of insulin and oral hypoglycemic [antidiabetic] drugs, initial encounter; H60.02 Abscess of left external ear; G89.29 Other chronic pain; F11.20 Opioid dependence, uncomplicated; F12.90 Cannabis use, unspecified, uncomplicated; K21.9 Gastro-esophageal reflux disease without esophagitis; E87.1 Hypo-osmolality and hyponatremia; E10.21 Type 1 diabetes mellitus with diabetic nephropathy; E10.40 Type 1 diabetes mellitus with diabetic neuropathy, unspecified; E87.2 Acidosis; K59.00 Constipation, unspecified; I47.2 Ventricular tachycardia; D53.9 Nutritional anemia, unspecified; F41.9 Anxiety disorder, unspecified; F17.210 Nicotine dependence, cigarettes, uncomplicated; Z91.14 Patient's other noncompliance with medication regimen; Z79.4 Long term (current) use of insulin
CPT/HCPCS: 80307; 82397-90; 97116-GP; 97161-GP; 97530-GP; C1751; G0480; J0360; J1650; J1815; J1885; J1940; J2405; J2765; J3370